=== PATIENT | male | born 1955 | race Caucasian/White ===

== ENCOUNTER → 2018-03-06 | Outpatient (CLI) | payer OTHER ==
[2018-02-13 15:26] VITALS: BP 163/86
[~2018-03-06] MED LIST: ALPR0.5T6 PO; AMLO5TAB2 PO; AMOX1TAB61 PO; ASPI-612 PO; ATEN50TA PO; ATOR10TA60 PO; ERGO500027 PO; GADOBUTROL 10 MMOL/10 ML VIAL IV ONE; GLIM4TAB2 PO; IPRA3AMP29 NEB; LISI-130 PO; METF10003 PO; OMEP20TA8 PO
--- NOTE | 2018-03-06 09:12 | RAD ---
EXAM: PA and lateral views of the chest DATE: 03/06/2018 7:53 AM INDICATION: PLEURAL EFFUSION COMPARISON: 02/13/2018 FINDINGS: Cardiomediastinal silhouette is stable. Left pleural effusion is essentially stable in size with associated parenchymal opacities, possibly atelectasis, also stable. No right pleural effusion. No pneumothorax. IMPRESSION: Stable left pleural effusion and associated opacities. Electronically signed by: Karan Veronica MD (03/06/2018 9:08 AM) [facility]
--- NOTE | 2018-03-06 09:45 | RAD ---
MRI of the Brain without and with Contrast 03/06/2018 Clinical History: Partial complex seizures. Technique: Unenhanced T1-weighted sagittal and axial and FLAIR, T2-weighted, gradient echo and diffusion-weighted axial images of the brain were obtained. Additionally thin section FLAIR coronal images through the temporal lobes were obtained. After the intravenous administration of 10 cc of Gadavist, enhanced T1-weighted axial and coronal images of the brain were obtained. Findings: No previous studies are available for comparison. Some of the images are degraded by patient motion. There is generalized parenchymal atrophy. Patchy, confluent and multiple focal areas of abnormally increased signal intensity are seen within the periventricular and subcortical white matter of both cerebral hemispheres along with the abhi on the FLAIR and T2-weighted images consistent with areas of fairly extensive small vessel ischemic disease. An old area of lacunar infarction is seen involving left aspect of the abhi. This measures 3 mm in size. A 2 mm old area of lacunar infarction is seen involving the right thalamus. No acute parenchymal abnormality is seen. No abnormal area of contrast enhancement is noted. No extra-axial fluid collection is seen. There is no MRI evidence of acute ischemia/infarction. Images through the temporal lobes are within normal limits. Mild mucosal thickening is seen scattered throughout the paranasal sinuses. There are small to moderate-sized bilateral mastoid effusions, left greater than right. Normal flow voids are seen within the major vascular structures surrounding the brain parenchyma. Impression: No acute parenchymal abnormality is seen. Electronically signed by: Alexis Redmond MD (03/06/2018 9:41 AM) [id number]
--- NOTE | 2018-03-06 16:53 | EEG ---
DATE OF SERVICE: 03/06/2018 ELECTROENCEPHALOGRAM NUMBER: [id number] OBJECTIVE: This is a 62-year-old male patient who stated he had a history of partial seizures. EEG was requested to evaluate seizure activity. METHODS: Twenty electrodes were applied according to the international 10-20 electrode placement system. EKG monitoring, hyperventilation, intermittent photic stimulation, monopolar and bipolar montages are routinely utilized. The record was obtained on a digital system with video monitoring. FINDINGS: 1. Background: The patient was recorded in the awake, drowsy, and sleep states. The overall background amplitude is 10-25 microvolts. A posterior dominant rhythm of 8 Hz is observed. 2. Abnormalities: No specific epileptiform discharge or electrographic seizure is seen. No focal or diffuse slowing. 3. Activation: Hyperventilation was performed with good efforts and normal response. Intermittent photic stimulation was performed with photic driving. No specific epileptiform discharge or electrographic seizure induced by hyperventilation or intermittent photic stimulation. IMPRESSION: This electroencephalogram is a normal study for the awake, drowsy, and sleep states. No focal, lateralizing, specific epileptiform discharge or electrographic seizure is seen. HENRIK AMADOR MD DR: KENDALL/[place] JOB#: [id number] / [id number] NEVIN
== END | disposition home or self-care (01) ==
LOC: RT 06:09
PROVIDERS: ATTEND Psychiatry & Neurology Neurology
DX: J90 Pleural effusion, not elsewhere classified (principal); G40.209 Localization-related (focal) (partial) symptomatic epilepsy and epileptic syndromes with complex partial seizures, not intractable, without status epilepticus; M17.0 Bilateral primary osteoarthritis of knee; I10 Essential (primary) hypertension; E11.42 Type 2 diabetes mellitus with diabetic polyneuropathy; E78.5 Hyperlipidemia, unspecified; E78.00 Pure hypercholesterolemia, unspecified; I25.10 Atherosclerotic heart disease of native coronary artery without angina pectoris; J44.0 Chronic obstructive pulmonary disease with (acute) lower respiratory infection; Z87.891 Personal history of nicotine dependence; Z68.31 Body mass index [BMI] 31.0-31.9, adult; Z82.49 Family history of ischemic heart disease and other diseases of the circulatory system; Z80.42 Family history of malignant neoplasm of prostate; Z83.3 Family history of diabetes mellitus
CPT/HCPCS: 70553; 71046; 95816; A9585

== ENCOUNTER → 2018-04-19 | Outpatient (CLI) | payer OTHER ==
[2018-02-13 15:26] VITALS: BP 163/86
[~2018-04-19] MED LIST changes: -AMLO5TAB2 PO; +AMLO5TAB7 PO; -GADOBUTROL 10 MMOL/10 ML VIAL IV ONE; -METF10003 PO; +METF10007 PO
--- NOTE | 2018-04-19 16:53 | RAD ---
Examination: CT chest without contrast HISTORY: History of shortness of breath, tobacco screening COMPARISON: None available TECHNIQUE: Axial CT images of the chest were performed without contrast. Coronal and sagittal reformats are performed. Exposure: One or more of the following individualized dose reduction techniques were utilized for this examination: 1. Automated exposure control 2. Adjustment of the mA and/or kV according to patient size 3. Use of iterative reconstruction technique Findings: The central airways are patent. Mild cardiomegaly. There is circumferential nodular appearance of the left pleura encasing the left lung with a density measuring 40 Hounsfield units could be nodular soft tissue densities on the pleura. Left lung base consolidation changes likely pneumonia or atelectasis. Evaluation of the mediastinum is limited due to lack of IV contrast. The visualized noncontrasted liver, spleen, adrenals grossly appears unremarkable. Partially visualized minimal fat stranding identified about the bilateral kidneys. Moderate degenerative changes thoracic spine. IMPRESSION: 1. Circumferential nodular thickening of the left pleura throughout. Mesothelioma is a primary concern. Examination limited lack of IV contrast. PET/CT scan may be useful. 2. Left lung base consolidation changes likely pneumonia or atelectasis. Follow-up to resolution. 3. Partially visualized minimal fat stranding identified about the bilateral kidneys, nonspecific. Electronically signed by: Janes Melendrez MD (04/19/2018 4:49 PM) [id number]
== END | disposition home or self-care (01) ==
LOC: CT 15:34
PROVIDERS: ATTEND Internal Medicine Pulmonary Disease
DX: Z13.83 Encounter for screening for respiratory disorder NEC (principal); I10 Essential (primary) hypertension; E11.9 Type 2 diabetes mellitus without complications; E78.5 Hyperlipidemia, unspecified; E78.00 Pure hypercholesterolemia, unspecified; I25.10 Atherosclerotic heart disease of native coronary artery without angina pectoris; M17.0 Bilateral primary osteoarthritis of knee; Z87.891 Personal history of nicotine dependence; Z88.5 Allergy status to narcotic agent; Z82.49 Family history of ischemic heart disease and other diseases of the circulatory system; Z80.42 Family history of malignant neoplasm of prostate; Z83.3 Family history of diabetes mellitus
CPT/HCPCS: 71250

== ENCOUNTER → 2018-07-18 | Outpatient (CLI) | payer OTHER ==
[2018-06-06 14:57] VITALS: BP 141/68
[~2018-07-18] MED LIST changes: +OXYC1TAB19 PO; +OXYC1TAB7 PO
--- NOTE | 2018-07-18 11:18 | RAD ---
FDG tumor localization scan, PET/CT, 07/18/2018: History: Follow-up lung malignancy Following IV injection of 14.7 mCi of 18 F-FDG, imaging was performed from the skull base to the proximal thighs. The noncontrast CT component was performed for attenuation correction and anatomic localization purposes rather than for primary diagnosis. The patient's blood glucose level the time of injection was 174 MG/DL. Comparison is made to a study from 05/16/2018. Extensive lobulated pleural thickening in the left chest has improved. Narrowing of the central bronchi at the left hilum has also improved. There is abnormal nodular FDG uptake within the areas of pleural thickening. The degree of FDG uptake has decreased since the previous study. The maximum SUV in these regions is approximately 10 compared to values of approximately 15 on the previous study. Subcarinal adenopathy has also regressed demonstrating decrease in size and the degree of FDG uptake since the previous study. On the previous study this node measured 3 cm in AP diameter with a maximum SUV of 19. It currently measures 2 cm in AP diameter with a maximum SUV of 5.1. A mildly enlarged hypermetabolic right paratracheal lymph node is new as is a small focus of increased activity in the right internal mammary region. A small hypermetabolic left subpectoral nodule is unchanged. Upper abdominal retroperitoneal and retrocrural hypermetabolic adenopathy has predominantly improved. The left para-aortic node at the renal level seen on the previous study has decreased in size and is no longer hypermetabolic. There is a small unchanged hypermetabolic nodule along the superior aspect of the celiac axis. No new hypermetabolic abdominal or pelvic lesion is seen. There is a small hypermetabolic focus present along the upper scrotal wall on the left of uncertain significance. Clinical correlation is suggested. IMPRESSION: Predominantly favorable response to therapy with decrease in size and degree of FDG uptake of multiple lesions as described above. The left subpectoral and one upper abdominal retroperitoneal lesion are essentially unchanged, while new small right paratracheal and internal mammary lesions are noted.
== END | disposition home or self-care (01) ==
LOC: PETSC 07:39
PROVIDERS: ATTEND Internal Medicine Hematology & Oncology
DX: C34.82 Malignant neoplasm of overlapping sites of left bronchus and lung (principal); R53.83 Other fatigue; F12.90 Cannabis use, unspecified, uncomplicated; Z87.891 Personal history of nicotine dependence
CPT/HCPCS: 78815; A9552

== ENCOUNTER → 2018-09-05 | Outpatient (CLI) | payer OTHER ==
[2018-06-06 14:57] VITALS: BP 141/68
[~2018-09-05] MED LIST changes: +AMLO5TAB10 PO; -AMLO5TAB7 PO
--- NOTE | 2018-09-05 13:21 | RAD ---
FDG tumor localization scan, PET/CT, 09/05/2018: History: Lung cancer Following IV injection of 11.5 mCi of 18 F-FDG, imaging was performed from the skull base to the proximal thighs. The noncontrast CT component was performed for attenuation correction and anatomic localization purposes rather than for primary diagnosis. The patient's blood glucose level at time injection was 176 M.D./DL. Comparison is made to a study from 07/18/2018. Pleural thickening throughout the left chest has worsened considerably with increasingly poor aeration of the underlying left lung. The maximum SUV of these pleural densities is in the 12-14 range. Hypermetabolic mediastinal lymph nodes have increased in size and number. These include a 2.8 cm right paratracheal lymph node which demonstrates a maximum SUV of 10. Hypermetabolic subcarinal adenopathy has worsened. There is now hypermetabolic left supraclavicular adenopathy. The left subpectoral adenopathy has worsened. Small hypermetabolic nodes are present in the epicardial fat adjacent to the diaphragm. Normal GI tract and urinary tract activity is present in the abdomen and pelvis. Hypermetabolic para-aortic and pericaval adenopathy is present in the upper abdomen with considerable interval worsening. This includes a 3 cm cluster of hypermetabolic left para-aortic nodes demonstrate a maximum SUV of 10. The left adrenal gland is probably involved. Several new hypermetabolic foci are noted at the splenic hilar level. Two small hypermetabolic foci have developed anteriorly in the left lobe of the liver. The noncontrast CT component does not demonstrate an obvious underlying mass. IMPRESSION: 1. Worsening extensive hypermetabolic pleural thickening in the left chest. 2. Worsening mediastinal and upper abdominal hypermetabolic adenopathy as described above. 3. New mild left supraclavicular adenopathy 4. Possible small hepatic metastases.
== END | disposition home or self-care (01) ==
LOC: PETSC 10:12
PROVIDERS: ATTEND Internal Medicine Hematology & Oncology
DX: C34.82 Malignant neoplasm of overlapping sites of left bronchus and lung (principal); J92.9 Pleural plaque without asbestos; R59.0 Localized enlarged lymph nodes
CPT/HCPCS: 78815; A9552

== ENCOUNTER → 2018-10-04 | Outpatient (CLI) | payer OTHER ==
[2018-06-06 14:57] VITALS: BP 141/68
[~2018-10-04] MED LIST changes: +ASPI-630 PO; +FLUT9.9S NS; +FOLI1TAB16 PO; +LEVO750T31 PO; +OXYC1TAB22 PO; +VALA500T PO
--- NOTE | 2018-10-04 09:03 | RAD ---
Left lower extremity venous doppler ultrasound Indication:LT LEG SWELLING Technique: Color Doppler, grayscale, and spectral waveform analysis is used to evaluate the left femoral and popliteal veins. Findings: No evidence of deep venous thrombosis. Normal response to augmentation, normal compressibility and normal phasicity is demonstrated. Visualized calf veins are patent. Impression: Negative for deep venous thrombosis Electronically signed by: Louis Obrien MD (10/04/2018 9:00 AM) [facility]
== END | disposition home or self-care (01) ==
LOC: US 08:31
PROVIDERS: ATTEND Internal Medicine Hematology & Oncology
DX: M79.89 Other specified soft tissue disorders (principal)
CPT/HCPCS: 93971

== ENCOUNTER 2018-10-13 00:31 | Inpatient (IN) | payer OTHER ==
[~2018-10-13] VITALS: Ht 182.9 cm; Wt 99.5 kg
[~2018-10-13 00:31] MED LIST changes: -ASPI-630 PO; -FLUT9.9S NS; -FOLI1TAB16 PO; -LEVO750T31 PO; -OXYC1TAB22 PO; -VALA500T PO
[2018-10-13] MEDS ORDERED: IV NORMAL SALINE 1000ML BAG 1,000 ML IV ONE (01:30)
[2018-10-13] MEDS ORDERED: ACETAMINOPHEN 325 MG TABLET. PO ONE (01:30)
[2018-10-13 01:56] LABS: BASO # 0.1 x10^3/uL (0.0-0.2); BASO % 2 % (0-3); EOS # 0.3 x10^3/uL (0.0-0.7); EOS % 10 % (0-3); HEMATOCRIT 23.7 % (39.0-53.0); HEMOGLOBIN 7.7 g/dL (13.0-17.5); LYMPH # 1.2 x10^3/uL (1.0-4.8); LYMPH % 36 % (24-48); MEAN CORPUSCULAR HEMOGLOBIN 29 pg (25-35); MEAN CORPUSCULAR HGB CONC 32 g/dL (31-37); MEAN CORPUSCULAR VOLUME 89 fL (79-100); MONO # 0.8 x10^3/uL (0.0-1.1); MONO % 23 % (0-9); NEUT % 30 % (31-73); PLATELET COUNT 328 x10^3/uL (140-400); RED BLOOD COUNT 2.68 x10^6/uL (4.30-5.70); RED CELL DISTRIBUTION WIDTH 20.4 % (11.5-14.5); WHITE BLOOD COUNT 3.4 x10^3/uL (4.0-11.0)
[2018-10-13 01:58] LABS: PROTHROMBIN TIME PATIENT 13.7 SEC (11.7-14.0)
[2018-10-13] MEDS ORDERED: levOFLOXacin PER PHARMACY. MC PRN (02:00)
[2018-10-13 02:09] LABS: CALCIUM 8.9 mg/dL (8.5-10.1); CREATININE 0.9 mg/dL (0.7-1.3); GFR 85.2; POTASSIUM 4.9 mmol/L (3.5-5.1)
[2018-10-13 02:15] LABS: ALBUMIN 2.3 g/dL (3.4-5.0); ALBUMIN/GLOBULIN RATIO 0.5 (1.0-1.7); TOTAL BILIRUBIN 0.5 mg/dL (0.2-1.0); TOTAL PROTEIN 7.2 g/dL (6.4-8.2)
[2018-10-13 02:23] LABS: INFLUENZA A PATIENT NEGATIVE (NEGATIVE); INFLUENZA B PATIENT NEGATIVE (NEGATIVE)
--- NOTE | 2018-10-13 02:36 | RAD ---
AP portable chest radiograph 10/13/2018 Clinical History: Shortness of breath. Lung cancer. An AP erect portable digital radiograph of the chest was obtained. Comparison study is dated 06/06/2018. The cardiac silhouette is mildly enlarged. The thoracic aorta is mildly tortuous. Extensive left perihilar infiltrate is seen. There has been improved aeration of the left lung when compared to the previous examination. There is a small left pleural effusion. The right lung is clear. No pneumothorax is noted. Degenerative changes are seen involving the thoracic spine and both shoulders. Impression: Left perihilar infiltrate with small left pleural effusion. Electronically signed by: Alexis Redmond MD (10/13/2018 2:33 AM) [facility]
[2018-10-13] MEDS ORDERED: VANCOMYCIN 2 GM in IV NORMAL SALINE 500ML BAG 500 ML IV ONE (02:45)
[2018-10-13] MEDS ORDERED: PIP/TAZO PER PHARMACY MC PRN (03:30)
[2018-10-13] MEDS ORDERED: ACETAMINOPHEN 325 MG TABLET. PO PRN (04:00)
[2018-10-13] MEDS ORDERED: PIPERACILLIN/TAZOBACTAM 3.375 GM in IV NORMAL SALINE 50ML 50 ML IV ONE (04:00)
[2018-10-13] MEDS ORDERED: MORPHINE SULFATE 4 MG/ML VIAL. IV PRN (04:00)
--- NOTE | 2018-10-13 04:13 | PHYS DOC ---
Past Medical History Past Medical History: Cancer, Diabetes-Type II, Hypertension, Seizure Past Surgical History: Other Additional Past Surgical Histo: abscess I&D, wrist fusion,Fluid removed from lung 01/2018,Feb.had lung bx. Alcohol Use: Rarely Drug Use: Marijuana Adult General Chief Complaint Chief Complaint: SHORTNESS OF BREATH HPI HPI Patient is a 63 year old m who is presenting with chief complaint of cough and fever patient has been coughing up yellow stuff for the last few days fever to 101 over the last 2 days as well has been trying to get him to come in but he was refusing any finally has come in [facility]. Patient is denying any chest pain he does feel a little bit weaker than normal he does take chemotherapy last chemotherapy was October 04. Positive nausea and intermittent vomiting no abdominal pain he says he actually thinks is feeling okay at the moment Review of Systems Review of Systems Constitutional: Denies fever or chills [] Eyes: Denies change in visual acuity, redness, or eye pain [] HENT: Denies nasal congestion or sore throat [] Respiratory: Denies cough or shortness of breath [] Cardiovascular: No additional information not addressed in HPI [] GI: Denies abdominal pain, nausea, vomiting, bloody stools or diarrhea [] : Denies dysuria or hematuria [] Musculoskeletal: Denies back pain or joint pain [] Integument: Denies rash or skin lesions [] Neurologic: Denies headache, focal weakness or sensory changes [] Endocrine: Denies polyuria or polydipsia [] All other systems were reviewed and found to be within normal limits, except as documented in this note. Current Medications Current Medications Current Medications Medications (Trade) Dose Ordered Sig/Katherine Start Time Stop Time Status Last Admin Dose Admin Acetaminophen (Tylenol) 650 mg 1X ONCE 10/13/18 01:30 10/13/18 01:31 DC 10/13/18 01:57 650 MG Levofloxacin/ Dextrose 150 ml @ 100 mls/hr 1X ONCE 10/13/18 02:00 10/13/18 03:29 DC 10/13/18 02:56 100 MLS/HR Levofloxacin/ Dextrose (Levaquin Per Pharmacy) 1 each PRN DAILY PRN 10/13/18 02:00 UNV Piperacillin Sod/ Tazobactam Sod (Zosyn Per Pharmacy) 1 each PRN DAILY PRN 10/13/18 03:30 Sodium Chloride 1,000 ml @ 1,000 mls/hr 1X ONCE 10/13/18 01:30 10/13/18 02:29 DC 10/13/18 01:58 1,000 MLS/HR Vancomycin HCl (Vanco Per Pharmacy) 1 each PRN DAILY PRN 10/13/18 02:30 UNV Vancomycin HCl 2 gm/Sodium Chloride 500 ml @ 250 mls/hr 1X ONCE 10/13/18 02:45 10/13/18 04:44 DC Allergies Allergies Allergies Coded Allergies Type Severity Reaction Last Updated Verified codeine Allergy Severe makes face swell 05/01/18 Yes Physical Exam Physical Exam Constitutional: Well developed, well nourished, mildly ill-appearing HENT: Normocephalic, atraumatic, bilateral external ears normal, oropharynx moist, no oral exudates, nose normal. [] Eyes: PERRLA, I, conjunctiva normal, no discharge. [] Neck: Normal range of motion, no tenderness, supple, no stridor. [] Cardiovascular: Tachycardia to a 6 systolic murmur noted Lungs & Thorax: Rhonchi left midlung field mild tachypnea Abdomen: Bowel sounds normal, soft, no tenderness, no masses, no pulsatile masses. [] Skin: Warm, dry, no erythema, no rash. [] Back: No tenderness, no CVA tenderness. [] Extremities: No tenderness, no cyanosis, no clubbing, ROM intact, no asymmetric edema or calf tenderness Neurologic: Alert and oriented X 3, normal motor function, normal sensory function, no focal deficits noted. [] Psychologic: Affect normal, judgement normal, mood normal. [] Current Patient Data Vital Signs Vital Signs Date Time Temp Pulse Resp B/P (MAP) Pulse Ox O2 Delivery O2 Flow Rate FiO2 10/13/18 00:40 99.0 131 24 100/57 (71) 95 Nasal Cannula 2.0 99.0 hr improved 10 115 on my re-eval Lab Values Laboratory Tests Test 10/13/18 01:25 White Blood Count 3.4 x10^3/uL (4.0-11.0) L Red Blood Count 2.68 x10^6/uL (4.30-5.70) L Hemoglobin 7.7 g/dL (13.0-17.5) L Hematocrit 23.7 % (39.0-53.0) L Mean Corpuscular Volume 89 fL (79-100) Mean Corpuscular Hemoglobin 29 pg (25-35) Mean Corpuscular Hemoglobin Concent 32 g/dL (31-37) Red Cell Distribution Width 20.4 % (11.5-14.5) H Platelet Count 328 x10^3/uL (140-400) Neutrophils (%) (Auto) 30 % (31-73) L Lymphocytes (%) (Auto) 36 % (24-48) Monocytes (%) (Auto) 23 % (0-9) H Eosinophils (%) (Auto) 10 % (0-3) H Basophils (%) (Auto) 2 % (0-3) Neutrophils # (Auto) 1.0 x10^3uL (1.8-7.7) L Lymphocytes # (Auto) 1.2 x10^3/uL (1.0-4.8) Monocytes # (Auto) 0.8 x10^3/uL (0.0-1.1) Eosinophils # (Auto) 0.3 x10^3/uL (0.0-0.7) Basophils # (Auto) 0.1 x10^3/uL (0.0-0.2) Platelet Estimate Pending Prothrombin Time 13.7 SEC (11.7-14.0) Prothrombin Time INR 1.1 (0.8-1.1) Sodium Level 131 mmol/L (136-145) L Potassium Level 4.9 mmol/L (3.5-5.1) Chloride Level 97 mmol/L (98-107) L Carbon Dioxide Level 26 mmol/L (21-32) Anion Gap 8 (6-14) Blood Urea Nitrogen 15 mg/dL (8-26) Creatinine 0.9 mg/dL (0.7-1.3) Estimated GFR (Cockcroft-Gault) 85.2 BUN/Creatinine Ratio 17 (6-20) Glucose Level 139 mg/dL (70-99) H Lactic Acid Level 1.0 mmol/L (0.4-2.0) Calcium Level 8.9 mg/dL (8.5-10.1) Total Bilirubin 0.5 mg/dL (0.2-1.0) Aspartate Amino Transferase (AST) 73 U/L (15-37) H Alanine Aminotransferase (ALT) 13 U/L (16-63) L Alkaline Phosphatase 85 U/L (46-116) Troponin I Quantitative < 0.017 ng/mL (0.000-0.055) PR-Rdc-J-Type Natriuretic Peptide 766 pg/mL (0-124) H Total Protein 7.2 g/dL (6.4-8.2) Albumin 2.3 g/dL (3.4-5.0) L Albumin/Globulin Ratio 0.5 (1.0-1.7) L Influenza Type A Antigen Negative (NEGATIVE) Influenza Type B Antigen Negative (NEGATIVE) Laboratory Tests 10/13/18 01:25 Laboratory Tests 10/13/18 01:25 EKG EKG [] Interpretation Time: sinus tach rate 118 no acute ischemic changes noted. There are nonspecific changes in the high lateral leads but no STEMI seen Radiology/Procedures Radiology/Procedures [] Impressions: The cardiac silhouette is mildly enlarged. The thoracic aorta is mildly tortuous. Extensive left perihilar infiltrate is seen. There has been improved aeration of the left lung when compared to the previous examination. There is a small left pleural effusion. The right lung is clear. No pneumothorax is noted. Degenerative changes are seen involving the thoracic spine and both shoulders. Impression: Left perihilar infiltrate with small left pleural effusion. Electronically signed by: Alexis Redmond MD (10/13/2018 2:33 AM) [facility] DICTATED and SIGNED BY: ALEXIS REDMOND MD DATE: 10/13/18 0233 Course & Med Decision Making Course & Med Decision Making Pertinent Labs and Imaging studies reviewed. (See chart for details) Discussed with Dr. Felder for admission for pneumonia This is a 63-year-old male on chemotherapy for lung cancer presenting with cough and fever clinically here in the emergency room looks pretty good did have mild tachycardia he is awake and alert labs showed anemia not surprising given his chemotherapy white blood cell count 3.4 at this time anc 1000. cxr shows pna. lactic 1.0 Patient was given broad-spectrum antibiotics will be admitted for further evaluation and treatment. Flu swab Was negative Dragon Disclaimer Dragon Disclaimer This electronic medical record was generated, in whole or in part, using a voice recognition dictation system. Departure Departure Impression: Primary Impression: Pneumonia Disposition: 09 ADMITTED INPATIENT Admitting Physician: Praveen Felder Condition: STABLE Referrals: ANDERSON MANCILLA MD (PCP) NUNU ALMENDAREZ MD Oct 13, 2018 04:13
[2018-10-13] MEDS ORDERED: HYDROcodone/APAP 10/325 1 TAB TABLET PO ONE (04:30)
[2018-10-13 05:10] VITALS: BP 102/59
[2018-10-13] MEDS: IV NORMAL SALINE 1000ML BAG 1,000 ML IV SCH ×2 (05:14→17:06)
[2018-10-13] MEDS ORDERED: DEXTROSE 50% 25 GM / 50ML DISP.SYRIN. IV PRN (05:15)
[2018-10-13 05:39] LABS: % BANDS 8 % (0-9); % EOS 17 % (0-5); % LYMPHS 56 % (24-48); % MONOS 6 % (0-10); % SEGS 13 % (35-66)
[2018-10-13 05:40] LABS: PLT ESTIMATE ADEQUATE (ADEQUATE)
[2018-10-13] MEDS ORDERED: FOLI1TAB16 PO (05:42)
[2018-10-13] MEDS ORDERED: OXYC1TAB22 PO (05:42)
[2018-10-13] MEDS: VANCOMYCIN PER PHARMACY MC PRN ×2 (06:19→16:22)
[2018-10-13 07:00] VITALS: BP 105/55
[2018-10-13] MEDS ORDERED: LACTOBACILLUS RHAMNOSUS GG 1 CAPSULE. PO SCH (09:00)
[2018-10-13] MEDS: oxyCODONE/APAP 10/325 1 TAB TABLET PO PRN ×2 (10:23→20:01)
--- NOTE | 2018-10-13 10:52 | PDOC1 ---
History and Physical Date of Admission Date of Admission 10/13/18 Identification/Chief Complaint Chief Complaint fever, pain Source Source: Caregiver, Chart review, Patient History of Present Illness History of Present Illness Lung cancer pt of Dr. Swan who had chemo 10/04 and developed fever 2 days ago and came to ER overnight due to pain and fever and admitted. He also has oral ulcers and has a low WBC at 3.7 Past Medical History Cardiovascular: HTN, Hyperlipidemia Pulmonary: COPD, Other (stage 4 lung cancer) CENTRAL NERVOUS SYSTEM: Seizure Heme/Onc: Cancer Rheumatologic: Other (OA) Renal/: Chronic renal insuff Endocrine: Diabetes Past Surgical History Past Surgical History: Other Family History Family History: Cancer, Diabetes, Heart Disease, Hypertension, Kidney Disease Social History Smoke: Quit (40 pack yr history) ALCOHOL: occassional Current Problem List Problem List Problems Medical Problems: (1) Pneumonia Status: Acute Current Medications Current Medications Current Medications Medications (Trade) Dose Ordered Sig/Katherine Start Time Stop Time Status Last Admin Dose Admin Acetaminophen (Tylenol) 650 mg PRN Q4HRS PRN 10/13/18 04:00 10/14/18 03:59 Acetaminophen/ Hydrocodone Bitart (Lortab 10/325) 1 tab 1X ONCE 10/13/18 04:30 10/13/18 04:41 DC 10/13/18 04:27 1 TAB Albuterol/ Ipratropium (Duoneb) 3 ml RTQID 10/13/18 12:00 Amlodipine Besylate (Norvasc) 5 mg DAILY 10/13/18 11:00 Atenolol (Tenormin) 50 mg DAILY 10/13/18 11:00 Atorvastatin Calcium (Lipitor) 10 mg DAILY 10/13/18 11:00 Dextrose (Dextrose 50%-Water Syringe) 12.5 gm PRN Q15MIN PRN 10/13/18 05:15 Ergocalciferol (Vitamin D2) 50,000 unit WEEKLY 10/20/18 09:00 Folic Acid (Folic Acid) 1 mg DAILY 10/13/18 11:00 Lactobacillus Rhamnosus (Culturelle) 1 cap BID 10/13/18 09:00 10/13/18 09:45 1 CAP Levofloxacin/ Dextrose 150 ml @ 100 mls/hr Q24H 10/14/18 05:00 Levofloxacin/ Dextrose (Levaquin Per Pharmacy) 1 each PRN DAILY PRN 10/13/18 02:00 Lisinopril (Prinivil) 40 mg DAILY 10/13/18 11:00 Morphine Sulfate (Morphine Sulfate) 4 mg PRN Q2HR PRN 10/13/18 04:00 10/14/18 03:59 Oxycodone/ Acetaminophen (Percocet 10/325) 1 tab PRN Q6HRS PRN 10/13/18 10:15 10/13/18 10:23 1 TAB Pantoprazole Sodium (Protonix) 40 mg DAILYAC 10/14/18 07:30 Piperacillin Sod/ Tazobactam Sod (Zosyn Per Pharmacy) 1 each PRN DAILY PRN 10/13/18 03:30 Piperacillin Sod/ Tazobactam Sod 3.375 gm/Sodium Chloride 50 ml @ 100 mls/hr Q6HRS 10/13/18 12:00 Sodium Chloride 1,000 ml @ 100 mls/hr Q10H 10/13/18 04:00 10/14/18 03:59 10/13/18 05:14 100 MLS/HR Vancomycin HCl (Vanco Per Pharmacy) 1 each PRN DAILY PRN 10/13/18 05:00 10/13/18 06:19 1 EACH Vancomycin HCl (Vancomycin Trough Level) 1 each 1X ONCE 10/14/18 17:00 10/14/18 17:01 Vancomycin HCl 1.5 gm/Sodium Chloride 500 ml @ 250 mls/hr Q12H 10/13/18 17:30 Vancomycin HCl 2 gm/Sodium Chloride 500 ml @ 250 mls/hr 1X ONCE 10/13/18 02:45 10/13/18 04:44 DC 10/13/18 05:37 250 MLS/HR Allergies Allergies Allergies Coded Allergies Type Severity Reaction Last Updated Verified codeine Allergy Severe makes face swell 05/01/18 Yes ROS Review of System CONSTITUTIONAL: + fever, chills EYES: No recent changes SKIN: No rash or itching CARDIOVASCULAR: No chest pain, syncope, palpitations, or edema RESPIRATORY: lung cancer GASTROINTESTINAL: No nausea, vomiting or abdominal pain, BM about every 2 days NEUROLOGICAL: No headaches or weakness ENDOCRINE: No cold or heat intolerance GENITOURINARY: + frequency of urination MUSCULOSKELETAL: + left sided back and joint pain PSYCHIATRIC: No anxiety or depression Physical Exam Physical Exam GEN.: uncomfortable. Alert and oriented. HEENT: Head is normocephalic, atraumatic, oral ulcers present NECK: Supple. LUNGS: Clear to auscultation. HEART: RRR, S1, S2 present. Peripheral pulses intact ABDOMEN: Soft, nontender. Positive bowel sounds. EXTREMITIES: Without any cyanosis. NEUROLOGIC: Normal speech, normal tone PSYCHIATRIC: Normal affect, normal mood. SKIN: No ulcerations Vitals Vitals Vital Signs Date Time Temp Pulse Resp B/P (MAP) Pulse Ox O2 Delivery O2 Flow Rate FiO2 10/13/18 10:23 Nasal Cannula 1.5 10/13/18 07:00 98.0 103 20 105/55 (72) 95 98.0 Labs Labs Laboratory Tests Test 10/13/18 01:25 10/13/18 07:44 White Blood Count 3.4 x10^3/uL (4.0-11.0) Red Blood Count 2.68 x10^6/uL (4.30-5.70) Hemoglobin 7.7 g/dL (13.0-17.5) Hematocrit 23.7 % (39.0-53.0) Mean Corpuscular Volume 89 fL (79-100) Mean Corpuscular Hemoglobin 29 pg (25-35) Mean Corpuscular Hemoglobin Concent 32 g/dL (31-37) Red Cell Distribution Width 20.4 % (11.5-14.5) Platelet Count 328 x10^3/uL (140-400) Neutrophils (%) (Auto) 30 % (31-73) Lymphocytes (%) (Auto) 36 % (24-48) Monocytes (%) (Auto) 23 % (0-9) Eosinophils (%) (Auto) 10 % (0-3) Basophils (%) (Auto) 2 % (0-3) Neutrophils # (Auto) 1.0 x10^3uL (1.8-7.7) Lymphocytes # (Auto) 1.2 x10^3/uL (1.0-4.8) Monocytes # (Auto) 0.8 x10^3/uL (0.0-1.1) Eosinophils # (Auto) 0.3 x10^3/uL (0.0-0.7) Basophils # (Auto) 0.1 x10^3/uL (0.0-0.2) Segmented Neutrophils % 13 % (35-66) Band Neutrophils % 8 % (0-9) Lymphocytes % 56 % (24-48) Monocytes % 6 % (0-10) Eosinophils % 17 % (0-5) Platelet Estimate Adequate (ADEQUATE) Prothrombin Time 13.7 SEC (11.7-14.0) Prothromb Time International Ratio 1.1 (0.8-1.1) Sodium Level 131 mmol/L (136-145) Potassium Level 4.9 mmol/L (3.5-5.1) Chloride Level 97 mmol/L (98-107) Carbon Dioxide Level 26 mmol/L (21-32) Anion Gap 8 (6-14) Blood Urea Nitrogen 15 mg/dL (8-26) Creatinine 0.9 mg/dL (0.7-1.3) Estimated GFR (Cockcroft-Gault) 85.2 BUN/Creatinine Ratio 17 (6-20) Glucose Level 139 mg/dL (70-99) Lactic Acid Level 1.0 mmol/L (0.4-2.0) Calcium Level 8.9 mg/dL (8.5-10.1) Total Bilirubin 0.5 mg/dL (0.2-1.0) Aspartate Amino Transf (AST/SGOT) 73 U/L (15-37) Alanine Aminotransferase (ALT/SGPT) 13 U/L (16-63) Alkaline Phosphatase 85 U/L (46-116) Troponin I Quantitative < 0.017 ng/mL (0.000-0.055) WK-Mvp-P-Type Natriuretic Peptide 766 pg/mL (0-124) Total Protein 7.2 g/dL (6.4-8.2) Albumin 2.3 g/dL (3.4-5.0) Albumin/Globulin Ratio 0.5 (1.0-1.7) Influenza Type A Antigen Negative (NEGATIVE) Influenza Type B Antigen Negative (NEGATIVE) Glucose (Fingerstick) 127 mg/dL (70-99) Laboratory Tests Test 10/13/18 01:25 10/13/18 07:44 White Blood Count 3.4 x10^3/uL (4.0-11.0) Red Blood Count 2.68 x10^6/uL (4.30-5.70) Hemoglobin 7.7 g/dL (13.0-17.5) Hematocrit 23.7 % (39.0-53.0) Mean Corpuscular Volume 89 fL (79-100) Mean Corpuscular Hemoglobin 29 pg (25-35) Mean Corpuscular Hemoglobin Concent 32 g/dL (31-37) Red Cell Distribution Width 20.4 % (11.5-14.5) Platelet Count 328 x10^3/uL (140-400) Neutrophils (%) (Auto) 30 % (31-73) Lymphocytes (%) (Auto) 36 % (24-48) Monocytes (%) (Auto) 23 % (0-9) Eosinophils (%) (Auto) 10 % (0-3) Basophils (%) (Auto) 2 % (0-3) Neutrophils # (Auto) 1.0 x10^3uL (1.8-7.7) Lymphocytes # (Auto) 1.2 x10^3/uL (1.0-4.8) Monocytes # (Auto) 0.8 x10^3/uL (0.0-1.1) Eosinophils # (Auto) 0.3 x10^3/uL (0.0-0.7) Basophils # (Auto) 0.1 x10^3/uL (0.0-0.2) Segmented Neutrophils % 13 % (35-66) Band Neutrophils % 8 % (0-9) Lymphocytes % 56 % (24-48) Monocytes % 6 % (0-10) Eosinophils % 17 % (0-5) Platelet Estimate Adequate (ADEQUATE) Prothrombin Time 13.7 SEC (11.7-14.0) Prothromb Time International Ratio 1.1 (0.8-1.1) Sodium Level 131 mmol/L (136-145) Potassium Level 4.9 mmol/L (3.5-5.1) Chloride Level 97 mmol/L (98-107) Carbon Dioxide Level 26 mmol/L (21-32) Anion Gap 8 (6-14) Blood Urea Nitrogen 15 mg/dL (8-26) Creatinine 0.9 mg/dL (0.7-1.3) Estimated GFR (Cockcroft-Gault) 85.2 BUN/Creatinine Ratio 17 (6-20) Glucose Level 139 mg/dL (70-99) Lactic Acid Level 1.0 mmol/L (0.4-2.0) Calcium Level 8.9 mg/dL (8.5-10.1) Total Bilirubin 0.5 mg/dL (0.2-1.0) Aspartate Amino Transf (AST/SGOT) 73 U/L (15-37) Alanine Aminotransferase (ALT/SGPT) 13 U/L (16-63) Alkaline Phosphatase 85 U/L (46-116) Troponin I Quantitative < 0.017 ng/mL (0.000-0.055) AU-Ucq-U-Type Natriuretic Peptide 766 pg/mL (0-124) Total Protein 7.2 g/dL (6.4-8.2) Albumin 2.3 g/dL (3.4-5.0) Albumin/Globulin Ratio 0.5 (1.0-1.7) Influenza Type A Antigen Negative (NEGATIVE) Influenza Type B Antigen Negative (NEGATIVE) Glucose (Fingerstick) 127 mg/dL (70-99) Images Images AP portable chest radiograph 10/13/2018 Clinical History: Shortness of breath. Lung cancer. An AP erect portable digital radiograph of the chest was obtained. Comparison study is dated 06/06/2018. The cardiac silhouette is mildly enlarged. The thoracic aorta is mildly tortuous. Extensive left perihilar infiltrate is seen. There has been improved aeration of the left lung when compared to the previous examination. There is a small left pleural effusion. The right lung is clear. No pneumothorax is noted. Degenerative changes are seen involving the thoracic spine and both shoulders. Impression: Left perihilar infiltrate with small left pleural effusion. VTE Prophylaxis Ordered VTE Prophylaxis Devices: No VTE Pharmacological Prophylaxi: Yes Assessment/Plan Assessment/Plan pneumonia/neutropenic fever - IV antibiotics - ID consult lung cancer - last chemo 10/04 - onc consult Type 2 diabetes - home meds stage 3 CKD - IVF HTN - home meds Mayela IQBAL MD Oct 13, 2018 10:52
[2018-10-13 11:00] VITALS: BP 118/52
[2018-10-13] MEDS ORDERED: LIDO:MAALOX:BENADRYL 1:1:1 180 ML BOTTLE. PO PRN (11:00)
[2018-10-13] MEDS: IPRATRPIUM/ALBUTEROL 0.5/2.5MG 3 ML NEBU. NEB SCH ×3 (11:15→20:14)
[2018-10-13] MEDS: FOLIC ACID 1 MG TABLET. PO SCH (11:48)
[2018-10-13] MEDS: LISINOPRIL 20 MG TABLET PO SCH (11:48)
[2018-10-13] MEDS: ATORVASTATIN CALCIUM 10 MG TABLET. PO SCH (11:48)
[2018-10-13] MEDS: amLODIPine BESYLATE 5 MG TABLET PO SCH (11:49)
[2018-10-13] MEDS: ATENOLOL 50 MG TABLET. PO SCH (11:50)
[2018-10-13] MEDS ORDERED: PIPERACILLIN/TAZOBACTAM 3.375 GM in IV NORMAL SALINE 50ML 50 ML IV SCH (12:00)
--- NOTE | 2018-10-13 13:52 | PDOC ---
Infectious Disease Note Vital Sign Vital Signs Vital Signs Date Time Temp Pulse Resp B/P (MAP) Pulse Ox O2 Delivery O2 Flow Rate FiO2 10/13/18 11:50 Nasal Cannula 2.0 10/13/18 11:50 101 118/52 10/13/18 11:00 98.0 20 97 98.0 Labs Lab Laboratory Tests Test 10/13/18 01:25 10/13/18 07:44 10/13/18 10:59 White Blood Count 3.4 x10^3/uL (4.0-11.0) Red Blood Count 2.68 x10^6/uL (4.30-5.70) Hemoglobin 7.7 g/dL (13.0-17.5) Hematocrit 23.7 % (39.0-53.0) Mean Corpuscular Volume 89 fL (79-100) Mean Corpuscular Hemoglobin 29 pg (25-35) Mean Corpuscular Hemoglobin Concent 32 g/dL (31-37) Red Cell Distribution Width 20.4 % (11.5-14.5) Platelet Count 328 x10^3/uL (140-400) Neutrophils (%) (Auto) 30 % (31-73) Lymphocytes (%) (Auto) 36 % (24-48) Monocytes (%) (Auto) 23 % (0-9) Eosinophils (%) (Auto) 10 % (0-3) Basophils (%) (Auto) 2 % (0-3) Neutrophils # (Auto) 1.0 x10^3uL (1.8-7.7) Lymphocytes # (Auto) 1.2 x10^3/uL (1.0-4.8) Monocytes # (Auto) 0.8 x10^3/uL (0.0-1.1) Eosinophils # (Auto) 0.3 x10^3/uL (0.0-0.7) Basophils # (Auto) 0.1 x10^3/uL (0.0-0.2) Segmented Neutrophils % 13 % (35-66) Band Neutrophils % 8 % (0-9) Lymphocytes % 56 % (24-48) Monocytes % 6 % (0-10) Eosinophils % 17 % (0-5) Platelet Estimate Adequate (ADEQUATE) Prothrombin Time 13.7 SEC (11.7-14.0) Prothromb Time International Ratio 1.1 (0.8-1.1) Sodium Level 131 mmol/L (136-145) Potassium Level 4.9 mmol/L (3.5-5.1) Chloride Level 97 mmol/L (98-107) Carbon Dioxide Level 26 mmol/L (21-32) Anion Gap 8 (6-14) Blood Urea Nitrogen 15 mg/dL (8-26) Creatinine 0.9 mg/dL (0.7-1.3) Estimated GFR (Cockcroft-Gault) 85.2 BUN/Creatinine Ratio 17 (6-20) Glucose Level 139 mg/dL (70-99) Lactic Acid Level 1.0 mmol/L (0.4-2.0) Calcium Level 8.9 mg/dL (8.5-10.1) Total Bilirubin 0.5 mg/dL (0.2-1.0) Aspartate Amino Transf (AST/SGOT) 73 U/L (15-37) Alanine Aminotransferase (ALT/SGPT) 13 U/L (16-63) Alkaline Phosphatase 85 U/L (46-116) Troponin I Quantitative < 0.017 ng/mL (0.000-0.055) KE-Ras-G-Type Natriuretic Peptide 766 pg/mL (0-124) Total Protein 7.2 g/dL (6.4-8.2) Albumin 2.3 g/dL (3.4-5.0) Albumin/Globulin Ratio 0.5 (1.0-1.7) Influenza Type A Antigen Negative (NEGATIVE) Influenza Type B Antigen Negative (NEGATIVE) Glucose (Fingerstick) 127 mg/dL (70-99) 113 mg/dL (70-99) Objective Assessment HCAP Immunosuppression Oral ulcers Stage IV nonsmall cell lung cancer -palliative chemo, last dose around 10/04. DM HTN Plan Plan of Care vanc, Zosyn, Levaquin Probiotics add Valtrex Monitor labs f/u cultures Supportive care Thank you [id number] LEE APONTE APRN Oct 13, 2018 13:52 DEVON MOON MD Oct 13, 2018 15:46
--- NOTE | 2018-10-13 14:22 | CONS ---
DATE OF CONSULTATION: 10/13/2018 REFERRING PHYSICIAN: Dr. Felder. REASON FOR CONSULTATION: Pneumonia. HISTORY OF PRESENT ILLNESS: This patient is a 63-year-old male with stage 4 non-small cell lung cancer, undergoing palliative chemotherapy. He is followed by Dr. Swan and his last treatment was around 10/04/2018. About 2 days or so ago, he developed cough, increased shortness of air and chills. He normally has the fan directly blowing on him to help breathe and thought maybe he overdid it and caught himself a cold. He also has home oxygen as needed and was having to use it more. On admission, he was found to have a WBC count 3.4, segs 13%, bands 8%. A chest x-ray revealed a left perihilar infiltrate with small left pleural effusion. Blood cultures have been ordered. He was dosed with vancomycin, Zosyn and levofloxacin. ID has been asked to consult for further evaluation and antibiotic management. The patient says he is feeling a little bit better. He says he did not feel well and thought he had a fever. He denies headache, nasal or sinus congestion. He complains of difficulty chewing and sores in his mouth. He also finds himself having to clear his throat with swallowing. Denies chest pain. His appetite is a little bit diminished. He has been having occasional small bouts of diarrhea. He denies nausea, vomiting, cramps or bloating. PAST MEDICAL HISTORY: Stage 4 non-small cell lung cancer diagnosed in 04/2018 and is undergoing palliative chemotherapy. History of seizures. Hypertension, diabetes, hyperlipidemia, obesity, generalized anxiety disorder, osteoarthritis of knees, peripheral neuropathy. PAST SURGICAL HISTORY: Left open biopsy of pleura in 04/2018. Cardiac catheterization. Left wrist surgery. FAMILY HISTORY: Positive for hypertension, diabetes, colon cancer, heart disease, COPD and kidney disease. SOCIAL HISTORY: The patient is and lives at home. He has a 30-year pack history of smoking. Also, history of alcohol dependence in the past. 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 ALLERGIES: CODEINE. MEDICATIONS: Vancomycin, Zosyn, levofloxacin, probiotics. Other medications are available and have been reviewed on the MAR. REVIEW OF SYSTEMS: Per HPI, otherwise all other review of systems is negative. PHYSICAL EXAMINATION: VITAL SIGNS: Temperature is 98.0, blood pressure 118/52, heart rate 101, respiratory rate 20, pulse oximetry is 97% on 2 liters oxygen. GENERAL: The patient is propped up in bed, alert, in no apparent distress. HEENT: Pupils equally round, reactive. Normal conjunctivae. Oral cavity: Pharynx pink and moist, edentulous, a small ulceration left lower gum line. NECK: Supple. LUNGS: Diminished aeration. Nonlabored. HEART: S1, S2. ABDOMEN: Obese, soft and nontender with bowel sounds present. EXTREMITIES: No gross edema or cyanosis. SKIN: Warm without generalized rash. NEUROLOGIC: Alert and oriented x 3. Peripheral IV looks okay. LABORATORY DATA: Today's WBC 3.4, hemoglobin 7.7, platelets 328,000, segs 13%, bands 8%. Sodium 131, potassium 4.9, creatinine 0.9, BUN 15, AST 73, ALT 13. Lactic acid 1.0. Troponin less than 0.017. BNP 766, albumin 2.3. Influenza screen negative. Blood cultures pending. Chest x-ray per HPI. IMPRESSION: 1. Healthcare-acquired pneumonia. 2. Immunosuppression. 3. Oral ulcers. 4. Stage 4 non-small cell lung cancer, undergoing palliative chemotherapy. 5. Diabetes mellitus. 6. Hypertension. PLAN: Continue the vancomycin, Zosyn and levofloxacin along with the probiotics. We will add Valtrex as well. Continue to monitor laboratory values and temperature. Further antibiotic changes pending culture results and clinical response. Thank you, Dr. Felder, for asking us to participate in this patient's care. Should you have further questions or concerns, please call. DEVON MOON MD DR: JULIÁN/[place] JOB#: [id number] / [id number]
[2018-10-13 15:00] VITALS: BP 99/56
[2018-10-13] MEDS: VANCOMYCIN 1.25 GM in IV NORMAL SALINE 250ML 250 ML IV SCH (17:07)
[2018-10-13] MEDS ORDERED: VANCOMYCIN 1.5 GM in IV NORMAL SALINE 500ML BAG 500 ML IV SCH (17:30)
[2018-10-13 19:00] VITALS: BP 107/45
[2018-10-13] MEDS: PIPERACILLIN/TAZOBACTAM 4.5 GM in IV NORMAL SALINE 100ML 100 ML IV SCH ×2 (20:01→23:00)
[2018-10-13] MEDS: valACYclovir 500 MG TABLET. PO SCH (20:02)
[2018-10-13 23:01] VITALS: BP 117/60
[2018-10-14] VITALS (11 sets, daily range): BP systolic 97–128; BP diastolic 46–59
[2018-10-14] MEDS: VANCOMYCIN 1.25 GM in IV NORMAL SALINE 250ML 250 ML IV SCH ×2 (01:36→08:52)
[2018-10-14] MEDS: IV NORMAL SALINE 1000ML BAG 1,000 ML IV SCH (02:50)
[2018-10-14 04:00] LABS: BASO # 0.1 x10^3/uL (0.0-0.2); BASO % 2 % (0-3); EOS # 0.4 x10^3/uL (0.0-0.7); EOS % 12 % (0-3); HEMATOCRIT 21.8 % (39.0-53.0); LYMPH % 32 % (24-48); MEAN CORPUSCULAR HEMOGLOBIN 28 pg (25-35); MEAN CORPUSCULAR HGB CONC 31 g/dL (31-37); MEAN CORPUSCULAR VOLUME 90 fL (79-100); MONO # 0.8 x10^3/uL (0.0-1.1); MONO % 26 % (0-9); NEUT # 0.9 x10^3uL (1.8-7.7); NEUT % 29 % (31-73); PLATELET COUNT 305 x10^3/uL (140-400); RED BLOOD COUNT 2.43 x10^6/uL (4.30-5.70); RED CELL DISTRIBUTION WIDTH 20.5 % (11.5-14.5); WHITE BLOOD COUNT 3.2 x10^3/uL (4.0-11.0)
[2018-10-14 04:20] LABS: CALCIUM 8.4 mg/dL (8.5-10.1); CREATININE 0.9 mg/dL (0.7-1.3); GFR 85.2
[2018-10-14 04:53] LABS: HEMOGLOBIN 6.8 g/dL (13.0-17.5)
[2018-10-14] MEDS: PIPERACILLIN/TAZOBACTAM 4.5 GM in IV NORMAL SALINE 100ML 100 ML IV SCH ×3 (05:02→21:28)
[2018-10-14] MEDS: IPRATRPIUM/ALBUTEROL 0.5/2.5MG 3 ML NEBU. NEB SCH ×4 (07:30→21:13)
[2018-10-14] MEDS: ATORVASTATIN CALCIUM 10 MG TABLET. PO SCH (08:47)
[2018-10-14] MEDS: PANTOPRAZOLE 40 MG TABLET.DR. PO SCH (08:47)
[2018-10-14] MEDS: amLODIPine BESYLATE 5 MG TABLET PO SCH (08:48)
[2018-10-14] MEDS: FOLIC ACID 1 MG TABLET. PO SCH (08:48)
[2018-10-14] MEDS: LISINOPRIL 20 MG TABLET PO SCH (08:49)
[2018-10-14] MEDS: ATENOLOL 50 MG TABLET. PO SCH (08:51)
[2018-10-14] MEDS: valACYclovir 500 MG TABLET. PO SCH ×2 (08:51→20:08)
--- NOTE | 2018-10-14 09:00 | EKG ---
[facility] [address] [place] [id number] Test Date: 2018-10-13 Test Time: 03:06:26 Pat Name: ANDERSON REYES Department: Room: 536 1 Gender: M [employer]: : 1955 Requested By: NUNU ALMENDAREZ Order Number: [id number] Reading MD: Randy Teresa MD Measurements Intervals [place] Rate: 118 P: 31 IN: 170 QRS: 10 QRSD: 78 T: 98 QT: 296 QTc: 417 Interpretive Statements SINUS TACHYCARDIA NON-SPECIFIC ST/T CHANGES Electronically Signed On 10-14-2018 10:53:27 CDT by Randy Teresa MD
--- NOTE | 2018-10-14 09:53 | PDOC ---
PROGRESS NOTES Subjective Subjective Patient feeling better. Case discussed with Dr. Swan. Hemoglobin down to less than 7. Transfusion ordered. Patient on triple antibiotic therapy for healthcare acquired pneumonia. Patient also on antiviral therapy. Patient having some diarrhea. C. difficile ordered. Objective Objective Vital Signs Date Time Temp Pulse Resp B/P (MAP) Pulse Ox O2 Delivery O2 Flow Rate FiO2 10/14/18 08:51 104 116/54 10/14/18 07:30 96 Nasal Cannula 2.0 10/14/18 07:00 97.9 18 97.9 Intake and Output 10/14/18 07:00 Intake Total 3390 ml Output Total 900 ml Balance 2490 ml Intake Oral 990 ml IV Total 2400 ml Output Urine Total 900 ml # Voids 2 # Bowel Movements 1 Physical Exam Heart: Regular rate Extremities: No edema General: Alert Lungs: Other (pain to palpation of left flank some decreased breath sounds and crackles left lower lobe.) Assessment Assessment Problems Medical Problems: (1) Pneumonia Status: Acute Healthcare acquired pneumonia. Lung cancer on chemotherapy. Last treatment 10/04 Neutropenia Anemia Type 2 diabetes Hypertension Heart acute disease stage III Plan Plan of Care Proceed with transfusion. Port-A-Cath recommended due to failure to get Port-A-Cath as outpatient. Continue IV antibiotics and antiviral therapy. Monitor for C. difficile. Comment Review of Relevant I have reviewed the following items vanessa (where applicable) has been applied. Labs Laboratory Tests Test 10/13/18 01:25 10/13/18 07:44 10/13/18 10:59 10/13/18 16:36 White Blood Count 3.4 x10^3/uL (4.0-11.0) Red Blood Count 2.68 x10^6/uL (4.30-5.70) Hemoglobin 7.7 g/dL (13.0-17.5) Hematocrit 23.7 % (39.0-53.0) Mean Corpuscular Volume 89 fL (79-100) Mean Corpuscular Hemoglobin 29 pg (25-35) Mean Corpuscular Hemoglobin Concent 32 g/dL (31-37) Red Cell Distribution Width 20.4 % (11.5-14.5) Platelet Count 328 x10^3/uL (140-400) Neutrophils (%) (Auto) 30 % (31-73) Lymphocytes (%) (Auto) 36 % (24-48) Monocytes (%) (Auto) 23 % (0-9) Eosinophils (%) (Auto) 10 % (0-3) Basophils (%) (Auto) 2 % (0-3) Neutrophils # (Auto) 1.0 x10^3uL (1.8-7.7) Lymphocytes # (Auto) 1.2 x10^3/uL (1.0-4.8) Monocytes # (Auto) 0.8 x10^3/uL (0.0-1.1) Eosinophils # (Auto) 0.3 x10^3/uL (0.0-0.7) Basophils # (Auto) 0.1 x10^3/uL (0.0-0.2) Segmented Neutrophils % 13 % (35-66) Band Neutrophils % 8 % (0-9) Lymphocytes % 56 % (24-48) Monocytes % 6 % (0-10) Eosinophils % 17 % (0-5) Platelet Estimate Adequate (ADEQUATE) Prothrombin Time 13.7 SEC (11.7-14.0) Prothromb Time International Ratio 1.1 (0.8-1.1) Sodium Level 131 mmol/L (136-145) Potassium Level 4.9 mmol/L (3.5-5.1) Chloride Level 97 mmol/L (98-107) Carbon Dioxide Level 26 mmol/L (21-32) Anion Gap 8 (6-14) Blood Urea Nitrogen 15 mg/dL (8-26) Creatinine 0.9 mg/dL (0.7-1.3) Estimated GFR (Cockcroft-Gault) 85.2 BUN/Creatinine Ratio 17 (6-20) Glucose Level 139 mg/dL (70-99) Lactic Acid Level 1.0 mmol/L (0.4-2.0) Calcium Level 8.9 mg/dL (8.5-10.1) Total Bilirubin 0.5 mg/dL (0.2-1.0) Aspartate Amino Transf (AST/SGOT) 73 U/L (15-37) Alanine Aminotransferase (ALT/SGPT) 13 U/L (16-63) Alkaline Phosphatase 85 U/L (46-116) Troponin I Quantitative < 0.017 ng/mL (0.000-0.055) VF-Ril-U-Type Natriuretic Peptide 766 pg/mL (0-124) Total Protein 7.2 g/dL (6.4-8.2) Albumin 2.3 g/dL (3.4-5.0) Albumin/Globulin Ratio 0.5 (1.0-1.7) Influenza Type A Antigen Negative (NEGATIVE) Influenza Type B Antigen Negative (NEGATIVE) Glucose (Fingerstick) 127 mg/dL (70-99) 113 mg/dL (70-99) 156 mg/dL (70-99) Test 10/13/18 19:59 10/14/18 02:55 10/14/18 07:21 Glucose (Fingerstick) 120 mg/dL (70-99) 101 mg/dL (70-99) White Blood Count 3.2 x10^3/uL (4.0-11.0) Red Blood Count 2.43 x10^6/uL (4.30-5.70) Hemoglobin 6.8 g/dL (13.0-17.5) Hematocrit 21.8 % (39.0-53.0) Mean Corpuscular Volume 90 fL (79-100) Mean Corpuscular Hemoglobin 28 pg (25-35) Mean Corpuscular Hemoglobin Concent 31 g/dL (31-37) Red Cell Distribution Width 20.5 % (11.5-14.5) Platelet Count 305 x10^3/uL (140-400) Neutrophils (%) (Auto) 29 % (31-73) Lymphocytes (%) (Auto) 32 % (24-48) Monocytes (%) (Auto) 26 % (0-9) Eosinophils (%) (Auto) 12 % (0-3) Basophils (%) (Auto) 2 % (0-3) Neutrophils # (Auto) 0.9 x10^3uL (1.8-7.7) Lymphocytes # (Auto) 1.0 x10^3/uL (1.0-4.8) Monocytes # (Auto) 0.8 x10^3/uL (0.0-1.1) Eosinophils # (Auto) 0.4 x10^3/uL (0.0-0.7) Basophils # (Auto) 0.1 x10^3/uL (0.0-0.2) Sodium Level 137 mmol/L (136-145) Potassium Level 4.0 mmol/L (3.5-5.1) Chloride Level 102 mmol/L (98-107) Carbon Dioxide Level 26 mmol/L (21-32) Anion Gap 9 (6-14) Blood Urea Nitrogen 13 mg/dL (8-26) Creatinine 0.9 mg/dL (0.7-1.3) Estimated GFR (Cockcroft-Gault) 85.2 Glucose Level 101 mg/dL (70-99) Calcium Level 8.4 mg/dL (8.5-10.1) Procalcitonin 0.34 ng/mL (0.00-0.10) Laboratory Tests Test 10/13/18 10:59 10/13/18 16:36 10/13/18 19:59 10/14/18 02:55 Glucose (Fingerstick) 113 mg/dL (70-99) 156 mg/dL (70-99) 120 mg/dL (70-99) White Blood Count 3.2 x10^3/uL (4.0-11.0) Red Blood Count 2.43 x10^6/uL (4.30-5.70) Hemoglobin 6.8 g/dL (13.0-17.5) Hematocrit 21.8 % (39.0-53.0) Mean Corpuscular Volume 90 fL (79-100) Mean Corpuscular Hemoglobin 28 pg (25-35) Mean Corpuscular Hemoglobin Concent 31 g/dL (31-37) Red Cell Distribution Width 20.5 % (11.5-14.5) Platelet Count 305 x10^3/uL (140-400) Neutrophils (%) (Auto) 29 % (31-73) Lymphocytes (%) (Auto) 32 % (24-48) Monocytes (%) (Auto) 26 % (0-9) Eosinophils (%) (Auto) 12 % (0-3) Basophils (%) (Auto) 2 % (0-3) Neutrophils # (Auto) 0.9 x10^3uL (1.8-7.7) Lymphocytes # (Auto) 1.0 x10^3/uL (1.0-4.8) Monocytes # (Auto) 0.8 x10^3/uL (0.0-1.1) Eosinophils # (Auto) 0.4 x10^3/uL (0.0-0.7) Basophils # (Auto) 0.1 x10^3/uL (0.0-0.2) Sodium Level 137 mmol/L (136-145) Potassium Level 4.0 mmol/L (3.5-5.1) Chloride Level 102 mmol/L (98-107) Carbon Dioxide Level 26 mmol/L (21-32) Anion Gap 9 (6-14) Blood Urea Nitrogen 13 mg/dL (8-26) Creatinine 0.9 mg/dL (0.7-1.3) Estimated GFR (Cockcroft-Gault) 85.2 Glucose Level 101 mg/dL (70-99) Calcium Level 8.4 mg/dL (8.5-10.1) Procalcitonin 0.34 ng/mL (0.00-0.10) Test 10/14/18 07:21 Glucose (Fingerstick) 101 mg/dL (70-99) Microbiology 10/13/18 Blood Culture - Preliminary, Resulted NO GROWTH AFTER 1 DAY Medications Current Medications Acetaminophen (Tylenol) 650 mg 1X ONCE PO Last administered on 10/13/18at 01:57 ; Start 10/13/18 at 01:30; Stop 10/13/18 at 01:31; Status DC Sodium Chloride 1,000 ml @ 1,000 mls/hr 1X ONCE IV Last administered on at 01:58; Start 10/13/18 at 01:30; Stop 10/13/18 at 02:29; Status DC Levofloxacin/ Dextrose (Levaquin Per Pharmacy) 1 each PRN DAILY PRN MC SEE COMMENTS; Start 10/13/18 at 02:00; Stop 10/13/18 at 15:42; Status DC Levofloxacin/ Dextrose 150 ml @ 100 mls/hr 1X ONCE IV Last administered on at 02:56; Start 10/13/18 at 02:00; Stop 10/13/18 at 03:29; Status DC Vancomycin HCl (Vanco Per Pharmacy) 1 each PRN DAILY PRN MC SEE COMMENTS Last administered on 10/13/18at 16:22; Start 10/13/18 at 05:00 Vancomycin HCl 2 gm/Sodium Chloride 500 ml @ 250 mls/hr 1X ONCE IV Last administered on 10/13/18at 05:37; Start 10/13/18 at 02:45; Stop 10/13/18 at 04:44 ; Status DC Piperacillin Sod/ Tazobactam Sod (Zosyn Per Pharmacy) 1 each PRN DAILY PRN MC SEE COMMENTS; Start 10/13/18 at 03:30; Stop 10/13/18 at 15:42; Status DC Piperacillin Sod/ Tazobactam Sod 3.375 gm/Sodium Chloride 50 ml @ 100 mls/hr 1X ONCE IV Last administered on 10/13/18at 05:15; Start 10/13/18 at 04:00; Stop 10/13/18 at 04:29; Status DC Morphine Sulfate (Morphine Sulfate) 4 mg PRN Q2HR PRN IV PAIN; Start 10/13/18 at 04:00; Stop 10/14/18 at 03:59; Status DC Sodium Chloride 1,000 ml @ 100 mls/hr Q10H IV Last administered on 10/14/18at 02:50; Start 10/13/18 at 04:00; Stop 10/14/18 at 03:59; Status DC Acetaminophen (Tylenol) 650 mg PRN Q4HRS PRN PO FEVER; Start 10/13/18 at 04:00 ; Stop 10/14/18 at 03:59; Status DC Acetaminophen/ Hydrocodone Bitart (Lortab 10/325) 1 tab 1X ONCE PO Last administered on 10/13/18at 04:27; Start 10/13/18 at 04:30; Stop 10/13/18 at 04:41 ; Status DC Levofloxacin/ Dextrose 150 ml @ 100 mls/hr Q24H IV Last administered on at 04:00; Start 10/14/18 at 05:00 Piperacillin Sod/ Tazobactam Sod 3.375 gm/Sodium Chloride 50 ml @ 100 mls/hr Q6HRS IV Last administered on 10/13/18at 11:50; Start 10/13/18 at 12:00; Stop at 15:41; Status DC Dextrose (Dextrose 50%-Water Syringe) 12.5 gm PRN Q15MIN PRN IV SEE COMMENTS; Start 10/13/18 at 05:15 Vancomycin HCl 1.5 gm/Sodium Chloride 500 ml @ 250 mls/hr Q12H IV ; Start 10/13 at 17:30; Status Cancel Vancomycin HCl (Vancomycin Trough Level) 1 each 1X ONCE MC ; Start 10/14/18 at 17:00; Stop 10/14/18 at 17:00; Status DC Lactobacillus Rhamnosus (Culturelle) 1 cap BID PO Last administered on 09:45; Start 10/13/18 at 09:00; Stop 10/13/18 at 15:41; Status DC Amlodipine Besylate (Norvasc) 5 mg DAILY PO Last administered on 10/14/18 08: 48; Start 10/13/18 at 11:00 Atenolol (Tenormin) 50 mg DAILY PO Last administered on 10/14/18 08:51; Start 10/13/18 at 11:00 Atorvastatin Calcium (Lipitor) 10 mg DAILY PO Last administered on 10/14/18 08 :47; Start 10/13/18 at 11:00 Ergocalciferol (Vitamin D2) 50,000 unit WEEKLY PO ; Start 10/20/18 at 09:00 Folic Acid (Folic Acid) 1 mg DAILY PO Last administered on 10/14/18 08:48; Start 10/13/18 at 11:00 Albuterol/ Ipratropium (Duoneb) 3 ml RTQID NEB Last administered on 10/14/18 07:30; Start 10/13/18 at 12:00 Lisinopril (Prinivil) 40 mg DAILY PO Last administered on 10/14/18 08:49; Start 10/13/18 at 11:00 Oxycodone/ Acetaminophen (Percocet 10/325) 1 tab PRN Q6HRS PRN PO PAIN Last administered on 10/13/18at 20:01; Start 10/13/18 at 10:15 Pantoprazole Sodium (Protonix) 40 mg DAILYAC PO Last administered on 10/14/18 08:47; Start 10/14/18 at 07:30 Multi-Ingredient Mouthwash/Gargle (Magic Mouthwash) 10 ml PRN QID PRN PO MOUTH PAIN; Start 10/13/18 at 11:00 Valacyclovir HCl (Valtrex) 1,000 mg BID PO Last administered on 10/14/18 08:51 ; Start 10/13/18 at 21:00 Piperacillin Sod/ Tazobactam Sod 4.5 gm/Sodium Chloride 100 ml @ 200 mls/hr Q6HRS IV Last administered on 10/14/18at 05:02; Start 10/13/18 at 18:00 Vancomycin HCl 1.25 gm/Sodium Chloride 250 ml @ 167 mls/hr Q8H IV Last administered on 10/14/18at 08:52; Start 10/13/18 at 17:00 Vancomycin HCl (Vancomycin Trough Level) 1 each 1X ONCE MC ; Start 10/14/18 at 16:30; Stop 10/14/18 at 16:31 Active Scripts Active Duoneb 0.5-3(2.5) Mg/3 Ml (Albuterol/Ipratropium) 3 Ml Ampul.neb 3 Ml NEB RTQID 30 Days Reported Percocet 10-325 Mg Tablet (Oxycodone/Acetaminophen) 1 Each Tablet 1 Tab PO PRN Q6HRS PRN Folic Acid 1 Mg Tablet 1 Tab PO DAILY Atenolol 50 Mg Tablet 1 Tab PO DAILY Omeprazole 20 Mg Tablet. 1 Tab PO DAILY Atorvastatin Calcium 10 Mg Tablet 1 Tab PO DAILY Amlodipine Besylate 5 Mg Tablet 5 Mg PO DAILY Lisinopril 40 Mg Tablet 1 Tab PO DAILY Vitamin D2 (Ergocalciferol (Vitamin D2)) 50,000 Unit Capsule 1 Cap PO WEEKLY Vitals/I & O Vital Sign - Last 24 Hours 10/13/18 10/13/18 10/13/18 10/13/18 10:23 11:00 11:16 11:48 Temp 98.0 98.0 Pulse 101 101 Resp 20 B/P (MAP) 118/52 (74) 118/52 Pulse Ox 97 O2 Delivery Nasal Cannula Nasal Cannula Nasal Cannula O2 Flow Rate 1.5 2.0 2.0 10/13/18 10/13/18 10/13/18 10/13/18 11:49 11:50 15:00 15:18 Temp 98.5 98.5 Pulse 101 101 88 Resp 20 B/P (MAP) 118/52 118/52 99/56 (70) Pulse Ox 99 100 O2 Delivery Nasal Cannula Nasal Cannula O2 Flow Rate 2.0 2.0 10/13/18 10/13/18 10/13/18 10/13/18 19:00 19:49 20:01 20:14 Temp 98.8 98.8 Pulse 76 Resp 20 18 B/P (MAP) 107/45 (65) Pulse Ox 91 91 100 O2 Delivery Room Air Nasal Cannula Nasal Cannula Nasal Cannula O2 Flow Rate 1.5 1.5 2.0 10/13/18 10/13/18 10/14/18 10/14/18 21:01 23:01 03:03 07:00 Temp 98.7 97.8 97.9 98.7 97.8 97.9 Pulse 92 99 104 Resp 18 20 20 18 B/P (MAP) 117/60 (79) 128/59 (82) 116/54 (74) Pulse Ox 100 98 98 95 O2 Delivery Nasal Cannula Nasal Cannula Room Air Nasal Cannula O2 Flow Rate 2.0 2.0 2.0 10/14/18 10/14/18 10/14/18 10/14/18 07:30 08:48 08:49 08:51 Pulse 104 104 104 B/P (MAP) 116/54 116/54 116/54 Pulse Ox 96 O2 Delivery Nasal Cannula O2 Flow Rate 2.0 Intake and Output 10/13/18 10/13/18 10/14/18 15:00 23:00 07:00 Intake Total 950 ml 940 ml 1500 ml Output Total 500 ml 400 ml Balance 950 ml 440 ml 1100 ml ANDERSON MANCILLA MD Oct 14, 2018 09:53
--- NOTE | 2018-10-14 10:36 | PDOC ---
Infectious Disease Note Subjective: Subjective pt says had some cold spells had loose bm no n/v sob and cough continues no f/c ROS: ROS Negative except for above. Vital Signs: Vital Signs Vital Signs Date Time Temp Pulse Resp B/P (MAP) Pulse Ox O2 Delivery O2 Flow Rate FiO2 10/14/18 08:51 104 116/54 10/14/18 07:30 96 Nasal Cannula 2.0 10/14/18 07:00 97.9 18 97.9 Physical Exam: PHYSICAL EXAM GENERAL: The patient is propped up in bed, alert, in no apparent distress. HEENT: Pupils equally round, reactive. Normal conjunctivae. Oral cavity: Pharynx pink and moist, edentulous, a small ulceration left lower gum line. NECK: Supple. LUNGS: Diminished aeration. Nonlabored. HEART: S1, S2. ABDOMEN: Obese, soft and nontender with bowel sounds present. EXTREMITIES: No gross edema or cyanosis. SKIN: Warm without generalized rash. NEUROLOGIC: Alert and oriented x 3. Peripheral IV looks okay. Medications: Inpatient Meds: Current Medications Medications (Trade) Dose Ordered Sig/Katherine Start Time Stop Time Status Last Admin Dose Admin Acetaminophen (Tylenol) 650 mg PRN Q4HRS PRN 10/13/18 04:00 10/14/18 03:59 DC Acetaminophen/ Hydrocodone Bitart (Lortab 10/325) 1 tab 1X ONCE 10/13/18 04:30 10/13/18 04:41 DC 10/13/18 04:27 1 TAB Albuterol/ Ipratropium (Duoneb) 3 ml RTQID 10/13/18 12:00 10/14/18 07:30 3 ML Amlodipine Besylate (Norvasc) 5 mg DAILY 10/13/18 11:00 10/14/18 08:48 5 MG Atenolol (Tenormin) 50 mg DAILY 10/13/18 11:00 10/14/18 08:51 50 MG Atorvastatin Calcium (Lipitor) 10 mg DAILY 10/13/18 11:00 10/14/18 08:47 10 MG Dextrose (Dextrose 50%-Water Syringe) 12.5 gm PRN Q15MIN PRN 10/13/18 05:15 Ergocalciferol (Vitamin D2) 50,000 unit WEEKLY 10/20/18 09:00 Folic Acid (Folic Acid) 1 mg DAILY 10/13/18 11:00 10/14/18 08:48 1 MG Lactobacillus Rhamnosus (Culturelle) 1 cap BID 10/13/18 09:00 10/13/18 15:41 DC 10/13/18 09:45 1 CAP Levofloxacin/ Dextrose 150 ml @ 100 mls/hr Q24H 10/14/18 05:00 10/14/18 04:00 100 MLS/HR Levofloxacin/ Dextrose (Levaquin Per Pharmacy) 1 each PRN DAILY PRN 10/13/18 02:00 10/13/18 15:42 DC Lisinopril (Prinivil) 40 mg DAILY 10/13/18 11:00 10/14/18 08:49 40 MG Morphine Sulfate (Morphine Sulfate) 4 mg PRN Q2HR PRN 10/13/18 04:00 10/14/18 03:59 DC Multi-Ingredient Mouthwash/Gargle (Magic Mouthwash) 10 ml PRN QID PRN 10/13/18 11:00 Oxycodone/ Acetaminophen (Percocet 10/325) 1 tab PRN Q6HRS PRN 10/13/18 10:15 10/13/18 20:01 1 TAB Pantoprazole Sodium (Protonix) 40 mg DAILYAC 10/14/18 07:30 10/14/18 08:47 40 MG Piperacillin Sod/ Tazobactam Sod (Zosyn Per Pharmacy) 1 each PRN DAILY PRN 10/13/18 03:30 10/13/18 15:42 DC Piperacillin Sod/ Tazobactam Sod 3.375 gm/Sodium Chloride 50 ml @ 100 mls/hr Q6HRS 10/13/18 12:00 10/13/18 15:41 DC 10/13/18 11:50 100 MLS/HR Piperacillin Sod/ Tazobactam Sod 4.5 gm/Sodium Chloride 100 ml @ 200 mls/hr Q6HRS 10/13/18 18:00 10/14/18 05:02 200 MLS/HR Sodium Chloride 1,000 ml @ 100 mls/hr Q10H 10/13/18 04:00 10/14/18 03:59 DC 10/14/18 02:50 100 MLS/HR Valacyclovir HCl (Valtrex) 1,000 mg BID 10/13/18 21:00 10/14/18 08:51 1,000 MG Vancomycin HCl (Vanco Per Pharmacy) 1 each PRN DAILY PRN 10/13/18 05:00 10/13/18 16:22 1 EACH Vancomycin HCl (Vancomycin Trough Level) 1 each 1X ONCE 10/14/18 16:30 10/14/18 16:31 Vancomycin HCl 1.25 gm/Sodium Chloride 250 ml @ 167 mls/hr Q8H 10/13/18 17:00 10/14/18 08:52 167 MLS/HR Vancomycin HCl 1.5 gm/Sodium Chloride 500 ml @ 250 mls/hr Q12H 10/13/18 17:30 Cancel Vancomycin HCl 2 gm/Sodium Chloride 500 ml @ 250 mls/hr 1X ONCE 10/13/18 02:45 10/13/18 04:44 DC 10/13/18 05:37 250 MLS/HR Labs: Lab Laboratory Tests Test 10/13/18 10:59 10/13/18 16:36 10/13/18 19:59 10/14/18 02:55 Glucose (Fingerstick) 113 mg/dL (70-99) 156 mg/dL (70-99) 120 mg/dL (70-99) White Blood Count 3.2 x10^3/uL (4.0-11.0) Red Blood Count 2.43 x10^6/uL (4.30-5.70) Hemoglobin 6.8 g/dL (13.0-17.5) Hematocrit 21.8 % (39.0-53.0) Mean Corpuscular Volume 90 fL (79-100) Mean Corpuscular Hemoglobin 28 pg (25-35) Mean Corpuscular Hemoglobin Concent 31 g/dL (31-37) Red Cell Distribution Width 20.5 % (11.5-14.5) Platelet Count 305 x10^3/uL (140-400) Neutrophils (%) (Auto) 29 % (31-73) Lymphocytes (%) (Auto) 32 % (24-48) Monocytes (%) (Auto) 26 % (0-9) Eosinophils (%) (Auto) 12 % (0-3) Basophils (%) (Auto) 2 % (0-3) Neutrophils # (Auto) 0.9 x10^3uL (1.8-7.7) Lymphocytes # (Auto) 1.0 x10^3/uL (1.0-4.8) Monocytes # (Auto) 0.8 x10^3/uL (0.0-1.1) Eosinophils # (Auto) 0.4 x10^3/uL (0.0-0.7) Basophils # (Auto) 0.1 x10^3/uL (0.0-0.2) Sodium Level 137 mmol/L (136-145) Potassium Level 4.0 mmol/L (3.5-5.1) Chloride Level 102 mmol/L (98-107) Carbon Dioxide Level 26 mmol/L (21-32) Anion Gap 9 (6-14) Blood Urea Nitrogen 13 mg/dL (8-26) Creatinine 0.9 mg/dL (0.7-1.3) Estimated GFR (Cockcroft-Gault) 85.2 Glucose Level 101 mg/dL (70-99) Calcium Level 8.4 mg/dL (8.5-10.1) Procalcitonin 0.34 ng/mL (0.00-0.10) Test 10/14/18 07:21 Glucose (Fingerstick) 101 mg/dL (70-99) Micro RUN DATE: 10/14/18 PAGE 1 RUN TIME: 236 [facility] [address] [place] [address] Augie Sosa M.D., Deliverer Outside PATIENT: ANDERSON REYES ACCT: [id number] LOC: [address] [place] [address] U : [id number] AGE/SX: 63/M ROOM: [facility] REG : 10/13/[address]: Mayela IQBAL MD : 1955 BED: 1 DIS : STATUS: ADM IN TLOC: SPEC #: [id number] LAILA: 10/13/18 STATUS: RES REQ #: [id number] RECD: 10/13/[address] [facility] [address]: NUNU ALMENDAREZ MD SOURCE: BLOOD ENTR: 10/13/[address] [facility] [address]: ANDERSON MANCILLA MD [facility]: ORDERED: BCULT Procedure Result BLOOD CULTURE Preliminary NO GROWTH AFTER 1 DAY Objective: Assessment: 1. Healthcare-acquired pneumonia. 2. Immunosuppression. 3. Oral ulcers. 4. Stage 4 non-small cell lung cancer, undergoing palliative chemotherapy. 5. Diabetes mellitus. 6. Hypertension. 7. Diarrhea Plan: Plan of Care vanc, Zosyn, Levaquin for now Probiotics cont Valtrex f/u c diff pcr Monitor labs f/u cultures Supportive care DEVON MOON MD Oct 14, 2018 10:36
[2018-10-14] MEDS: VANCOMYCIN PER PHARMACY MC PRN ×2 (12:44→19:53)
[2018-10-14] MEDS ORDERED: ACETAMINOPHEN 325 MG TABLET. PO ONE (14:00)
[2018-10-14 19:11] LABS: VANC TR 20.2 mcg/mL (10.0-20.0)
[2018-10-14] MEDS: TBO-FILGRASTIM 480 MCG/0.8 ML SYRINGE. SQ SCH (20:07)
[2018-10-14] MEDS: VANCOMYCIN 1 GM in IV NORMAL SALINE 250ML 250 ML IV SCH (20:07)
--- NOTE | 2018-10-14 20:27 | CONS ---
DATE OF CONSULTATION: 10/14/2018 TYPE OF REPORT: Medical oncology consultation. CONSULTATION REQUESTING PHYSICIAN: Louis Cintron M.D. REASON FOR CONSULTATION: Lung cancer, now admitted with pneumonia. HISTORY OF PRESENT ILLNESS: The patient is a 63-year-old -French gentleman who was hospitalized in January of 2018 with respiratory distress. He had left-sided thoracentesis and the cytology was negative. He presented to the hospital in March of 2018 and he underwent open biopsy of the left pleura on 05/01/2018, which revealed adenocarcinoma. PET scan on 05/16/2018 revealed extensive hypermetabolic left pleural malignancy. There is evidence of subcarinal lymphadenopathy and epicardial nodes and internal mammary lymph nodes. There is also evidence of upper abdominal lymphadenopathy. He was started on palliative chemotherapy with carboplatin, pemetrexed and Keytruda on 06/11/2018. After 4 cycles of treatment, PET scan on 09/05/2018 revealed worsening pleural thickening in the left chest and worsening lymphadenopathy. Hence, he was started on Taxotere on 09/13/2018. He received cycle #2 on 10/04/2018. He presented to [facility] on 10/13/2018 with fever. He underwent a chest x-ray on 10/13/2018 that revealed opacity involving the right lateral upper lung field level, which is new when compared to the prior study and possible infiltrate was thought to be the etiology and he was started on antibiotics for pneumonia. He continues to have fever. He denies chest pain. PAST MEDICAL HISTORY: Diabetes mellitus and hypertension. FAMILY HISTORY: Positive for colon cancer. SOCIAL HISTORY: He is a former smoker. REVIEW OF SYSTEMS: A 12-point review of system was performed. Pertinent positives are mentioned in the history of present illness. Rest of the system review is negative. PHYSICAL EXAMINATION: VITAL SIGNS: Blood pressure 105/53 and temperature 97.9. HEENT: Head: Atraumatic and normocephalic. Eyes: No icterus. NECK: Supple. CHEST: Bilaterally symmetrical. HEART: S1 and S2 normal. ABDOMEN: Soft and nontender. CENTRAL NERVOUS SYSTEM: No focal deficits. LYMPHATICS: No lymphadenopathy. SKIN: No rashes. PSYCHOLOGICAL: Mood and affect are appropriate. LABORATORY DATA: WBC 3.2, hemoglobin 6.8 and platelet count 305. Absolute neutrophil count is 0.9. Creatinine 0.9. IMPRESSION AND PLAN: 1. Stage 4 [id number] lung cancer/adenocarcinoma, diagnosed by left pleural biopsy on 05/01/2018. He previously received chemotherapy with carboplatin, pemetrexed and Keytruda and he had disease progression after 4 cycles and hence, he was started on Taxotere on 09/13/2018. He received cycle #2 on 10/04/2018. I will continue to monitor for toxicities and he is tolerating it quite well. He is now admitted with neutropenic fever. 2. Pneumonia. Continue antibiotics by Dr. Louis Cintron. I discussed with Dr. Cintron. 3. Anemia. Hemoglobin is worse at 6.8 due to malignancy, chemotherapy and now underlying infection. Plan, 1 unit of packed red blood cells transfusion. I discussed with the registered nurse. 4. Neutropenia due to chemotherapy. I will start him on Granix. MYNOR MILLER MD DR: USMAN/nts JOB#: [id number] / [id number] LOUIS Miller MD [facility]ottie
[2018-10-14] MEDS: oxyCODONE/APAP 10/325 1 TAB TABLET PO PRN (22:32)
[2018-10-15] MEDS: PIPERACILLIN/TAZOBACTAM 4.5 GM in IV NORMAL SALINE 100ML 100 ML IV SCH ×3 (00:08→11:41)
[2018-10-15 03:00] VITALS: BP 102/46
[2018-10-15] MEDS: VANCOMYCIN 1 GM in IV NORMAL SALINE 250ML 250 ML IV SCH (03:58)
[2018-10-15] MEDS: PANTOPRAZOLE 40 MG TABLET.DR. PO SCH (06:29)
[2018-10-15] MEDS: oxyCODONE/APAP 10/325 1 TAB TABLET PO PRN ×3 (06:29→20:38)
[2018-10-15 07:00] VITALS: BP 100/49
[2018-10-15] MEDS: IPRATRPIUM/ALBUTEROL 0.5/2.5MG 3 ML NEBU. NEB SCH ×4 (08:59→21:25)
[2018-10-15] MEDS: valACYclovir 500 MG TABLET. PO SCH ×2 (09:02→21:05)
[2018-10-15] MEDS: ATORVASTATIN CALCIUM 10 MG TABLET. PO SCH (09:03)
[2018-10-15] MEDS: LISINOPRIL 20 MG TABLET PO SCH (09:03)
[2018-10-15] MEDS: FOLIC ACID 1 MG TABLET. PO SCH (09:03)
[2018-10-15] MEDS: amLODIPine BESYLATE 5 MG TABLET PO SCH (09:03)
[2018-10-15] MEDS: ATENOLOL 50 MG TABLET. PO SCH (09:04)
--- NOTE | 2018-10-15 09:06 | PDOC ---
PROGRESS NOTES Subjective Subjective HPI - f/u of Stage 4 bdu-[id number]-[id number] lung cancer/adenocarcinoma ROS - no fever Objective Objective Vital Signs Date Time Temp Pulse Resp B/P (MAP) Pulse Ox O2 Delivery O2 Flow Rate FiO2 10/15/18 08:59 99 Nasal Cannula 3.0 10/15/18 07:29 14 10/15/18 07:00 99.0 106 100/49 (66) 99.0 Intake and Output 10/15/18 06:59 Intake Total 2708 ml Balance 2708 ml Intake Oral 1710 ml IV Total 350 ml Blood Product IV Normal Saline Flush 648 ml # Voids 2 # Bowel Movements 1 Physical Exam Heart: Normal S1, Normal S2 General: Alert, Oriented X3 Lungs: Clear to auscultation Neuro: Normal speech Psych/Mental Status: Mental status NL Assessment Assessment Problems Medical Problems: (1) Pneumonia Status: Acute IMPRESSION AND PLAN: 1. Stage 4 fas-cqyhu-prlv lung cancer/adenocarcinoma, diagnosed by left pleural biopsy on 05/01/2018. He previously received chemotherapy with carboplatin, pemetrexed and Keytruda and he had disease progression after 4 cycles and hence, he was started on Taxotere on 09/13/2018. He received cycle #2 on 10/04/2018. I will continue to monitor for toxicities and he is tolerating it quite well. He is now admitted with neutropenic fever. 2. Pneumonia. Continue antibiotics by Dr. Louis Cintron. I discussed with Dr. Cintron. 3. Anemia. Hemoglobin is worse at 6.8 due to malignancy, chemotherapy and now underlying infection. Plan, 1 unit of packed red blood cells transfusion. I discussed with the registered nurse. 4. Neutropenia due to chemotherapy. I started him on Granix 10/14/18. 5. Plan port when ANC > 1.5. I d/w RN from IR. Comment Review of Relevant I have reviewed the following items vanessa (where applicable) has been applied. Labs Laboratory Tests Test 10/13/18 10:59 10/13/18 16:36 10/13/18 19:59 10/14/18 02:55 Glucose (Fingerstick) 113 mg/dL (70-99) 156 mg/dL (70-99) 120 mg/dL (70-99) White Blood Count 3.2 x10^3/uL (4.0-11.0) Red Blood Count 2.43 x10^6/uL (4.30-5.70) Hemoglobin 6.8 g/dL (13.0-17.5) Hematocrit 21.8 % (39.0-53.0) Mean Corpuscular Volume 90 fL (79-100) Mean Corpuscular Hemoglobin 28 pg (25-35) Mean Corpuscular Hemoglobin Concent 31 g/dL (31-37) Red Cell Distribution Width 20.5 % (11.5-14.5) Platelet Count 305 x10^3/uL (140-400) Neutrophils (%) (Auto) 29 % (31-73) Lymphocytes (%) (Auto) 32 % (24-48) Monocytes (%) (Auto) 26 % (0-9) Eosinophils (%) (Auto) 12 % (0-3) Basophils (%) (Auto) 2 % (0-3) Neutrophils # (Auto) 0.9 x10^3uL (1.8-7.7) Lymphocytes # (Auto) 1.0 x10^3/uL (1.0-4.8) Monocytes # (Auto) 0.8 x10^3/uL (0.0-1.1) Eosinophils # (Auto) 0.4 x10^3/uL (0.0-0.7) Basophils # (Auto) 0.1 x10^3/uL (0.0-0.2) Sodium Level 137 mmol/L (136-145) Potassium Level 4.0 mmol/L (3.5-5.1) Chloride Level 102 mmol/L (98-107) Carbon Dioxide Level 26 mmol/L (21-32) Anion Gap 9 (6-14) Blood Urea Nitrogen 13 mg/dL (8-26) Creatinine 0.9 mg/dL (0.7-1.3) Estimated GFR (Cockcroft-Gault) 85.2 Glucose Level 101 mg/dL (70-99) Calcium Level 8.4 mg/dL (8.5-10.1) Procalcitonin 0.34 ng/mL (0.00-0.10) Test 10/14/18 07:21 10/14/18 11:00 10/14/18 11:05 10/14/18 16:14 Glucose (Fingerstick) 101 mg/dL (70-99) 112 mg/dL (70-99) 174 mg/dL (70-99) Clostridium difficile Toxin B Gene Negative (Negative) Test 10/14/18 18:40 10/14/18 20:48 10/15/18 07:51 Vancomycin Level Trough 20.2 mcg/mL (10.0-20.0) Vancomycin Last Dose Date 10/14/18 Vancomycin Last Dose Time 0500 Glucose (Fingerstick) 132 mg/dL (70-99) 122 mg/dL (70-99) Laboratory Tests Test 10/14/18 11:00 10/14/18 11:05 10/14/18 16:14 10/14/18 18:40 Clostridium difficile Toxin B Gene Negative (Negative) Glucose (Fingerstick) 112 mg/dL (70-99) 174 mg/dL (70-99) Vancomycin Level Trough 20.2 mcg/mL (10.0-20.0) Vancomycin Last Dose Date 10/14/18 Vancomycin Last Dose Time 0500 Test 10/14/18 20:48 10/15/18 07:51 Glucose (Fingerstick) 132 mg/dL (70-99) 122 mg/dL (70-99) Microbiology 10/13/18 Blood Culture - Preliminary, Resulted NO GROWTH AFTER 2 DAYS Medications Current Medications Acetaminophen (Tylenol) 650 mg 1X ONCE PO Last administered on 10/13/18at 01:57 ; Start 10/13/18 at 01:30; Stop 10/13/18 at 01:31; Status DC Sodium Chloride 1,000 ml @ 1,000 mls/hr 1X ONCE IV Last administered on at 01:58; Start 10/13/18 at 01:30; Stop 10/13/18 at 02:29; Status DC Levofloxacin/ Dextrose (Levaquin Per Pharmacy) 1 each PRN DAILY PRN MC SEE COMMENTS; Start 10/13/18 at 02:00; Stop 10/13/18 at 15:42; Status DC Levofloxacin/ Dextrose 150 ml @ 100 mls/hr 1X ONCE IV Last administered on at 02:56; Start 10/13/18 at 02:00; Stop 10/13/18 at 03:29; Status DC Vancomycin HCl (Vanco Per Pharmacy) 1 each PRN DAILY PRN MC SEE COMMENTS Last administered on 10/14/18at 19:53; Start 10/13/18 at 05:00 Vancomycin HCl 2 gm/Sodium Chloride 500 ml @ 250 mls/hr 1X ONCE IV Last administered on 10/13/18at 05:37; Start 10/13/18 at 02:45; Stop 10/13/18 at 04:44 ; Status DC Piperacillin Sod/ Tazobactam Sod (Zosyn Per Pharmacy) 1 each PRN DAILY PRN MC SEE COMMENTS; Start 10/13/18 at 03:30; Stop 10/13/18 at 15:42; Status DC Piperacillin Sod/ Tazobactam Sod 3.375 gm/Sodium Chloride 50 ml @ 100 mls/hr 1X ONCE IV Last administered on 10/13/18at 05:15; Start 10/13/18 at 04:00; Stop 10/13/18 at 04:29; Status DC Morphine Sulfate (Morphine Sulfate) 4 mg PRN Q2HR PRN IV PAIN; Start 10/13/18 at 04:00; Stop 10/14/18 at 03:59; Status DC Sodium Chloride 1,000 ml @ 100 mls/hr Q10H IV Last administered on 10/14/18at 02:50; Start 10/13/18 at 04:00; Stop 10/14/18 at 03:59; Status DC Acetaminophen (Tylenol) 650 mg PRN Q4HRS PRN PO FEVER; Start 10/13/18 at 04:00 ; Stop 10/14/18 at 03:59; Status DC Acetaminophen/ Hydrocodone Bitart (Lortab 10/325) 1 tab 1X ONCE PO Last administered on 10/13/18at 04:27; Start 10/13/18 at 04:30; Stop 10/13/18 at 04:41 ; Status DC Levofloxacin/ Dextrose 150 ml @ 100 mls/hr Q24H IV Last administered on at 05:04; Start 10/14/18 at 05:00 Piperacillin Sod/ Tazobactam Sod 3.375 gm/Sodium Chloride 50 ml @ 100 mls/hr Q6HRS IV Last administered on 10/13/18at 11:50; Start 10/13/18 at 12:00; Stop at 15:41; Status DC Dextrose (Dextrose 50%-Water Syringe) 12.5 gm PRN Q15MIN PRN IV SEE COMMENTS; Start 10/13/18 at 05:15 Vancomycin HCl 1.5 gm/Sodium Chloride 500 ml @ 250 mls/hr Q12H IV ; Start 10/13 at 17:30; Status Cancel Vancomycin HCl (Vancomycin Trough Level) 1 each 1X ONCE MC ; Start 10/14/18 at 17:00; Stop 10/14/18 at 17:00; Status DC Lactobacillus Rhamnosus (Culturelle) 1 cap BID PO Last administered on at 09:45; Start 10/13/18 at 09:00; Stop 10/13/18 at 15:41; Status DC Amlodipine Besylate (Norvasc) 5 mg DAILY PO Last administered on 10/14/18at 08: 48; Start 10/13/18 at 11:00 Atenolol (Tenormin) 50 mg DAILY PO Last administered on 10/14/18at 08:51; Start 10/13/18 at 11:00 Atorvastatin Calcium (Lipitor) 10 mg DAILY PO Last administered on 10/14/18at 08 :47; Start 10/13/18 at 11:00 Ergocalciferol (Vitamin D2) 50,000 unit WEEKLY PO ; Start 10/20/18 at 09:00 Folic Acid (Folic Acid) 1 mg DAILY PO Last administered on 10/14/18at 08:48; Start 10/13/18 at 11:00 Albuterol/ Ipratropium (Duoneb) 3 ml RTQID NEB Last administered on 10/15/18at 08:59; Start 10/13/18 at 12:00 Lisinopril (Prinivil) 40 mg DAILY PO Last administered on 10/14/18at 08:49; Start 10/13/18 at 11:00 Oxycodone/ Acetaminophen (Percocet 10/325) 1 tab PRN Q6HRS PRN PO PAIN Last administered on 10/15/18at 06:29; Start 10/13/18 at 10:15 Pantoprazole Sodium (Protonix) 40 mg DAILYAC PO Last administered on 10/15/18at 06:29; Start 10/14/18 at 07:30 Multi-Ingredient Mouthwash/Gargle (Magic Mouthwash) 10 ml PRN QID PRN PO MOUTH PAIN; Start 10/13/18 at 11:00 Valacyclovir HCl (Valtrex) 1,000 mg BID PO Last administered on 10/14/18at 20:08 ; Start 10/13/18 at 21:00 Piperacillin Sod/ Tazobactam Sod 4.5 gm/Sodium Chloride 100 ml @ 200 mls/hr Q6HRS IV Last administered on 10/15/18at 06:29; Start 10/13/18 at 18:00 Vancomycin HCl 1.25 gm/Sodium Chloride 250 ml @ 167 mls/hr Q8H IV Last administered on 10/14/18at 08:52; Start 10/13/18 at 17:00; Stop 10/14/18 at 19:22 ; Status DC Vancomycin HCl (Vancomycin Trough Level) 1 each 1X ONCE MC Last administered on 10/14/18at 16:30; Start 10/14/18 at 16:30; Stop 10/14/18 at 16:31; Status DC Acetaminophen (Tylenol) 650 mg 1X ONCE PO Last administered on 10/14/18at 14:09 ; Start 10/14/18 at 14:00; Stop 10/14/18 at 14:01; Status DC Tbo-Filgrastim (Granix) 480 mcg QHS SQ Last administered on 10/14/18at 20:07; Start 10/14/18 at 21:00 Vancomycin HCl 1 gm/Sodium Chloride 250 ml @ 250 mls/hr Q8H IV Last administered on 10/15/18at 03:58; Start 10/14/18 at 20:00 Active Scripts Active Duoneb 0.5-3(2.5) Mg/3 Ml (Albuterol/Ipratropium) 3 Ml Ampul.neb 3 Ml NEB RTQID 30 Days Reported Percocet 10-325 Mg Tablet (Oxycodone/Acetaminophen) 1 Each Tablet 1 Tab PO PRN Q6HRS PRN Folic Acid 1 Mg Tablet 1 Tab PO DAILY Atenolol 50 Mg Tablet 1 Tab PO DAILY Omeprazole 20 Mg Tablet.dr 1 Tab PO DAILY Atorvastatin Calcium 10 Mg Tablet 1 Tab PO DAILY Amlodipine Besylate 5 Mg Tablet 5 Mg PO DAILY Lisinopril 40 Mg Tablet 1 Tab PO DAILY Vitamin D2 (Ergocalciferol (Vitamin D2)) 50,000 Unit Capsule 1 Cap PO WEEKLY Vitals/I & O Vital Sign - Last 24 Hours 10/14/18 10/14/18 10/14/18 10/14/18 10:51 12:03 14:54 15:00 Temp 97.9 99.7 99.7 97.9 99.7 99.7 Pulse 96 96 96 Resp 18 20 20 B/P (MAP) 105/53 (70) 97/46 97/46 (63) Pulse Ox 93 99 96 O2 Delivery Nasal Cannula Nasal Cannula Nasal Cannula O2 Flow Rate 2.0 2.0 2.0 10/14/18 10/14/18 10/14/18 10/14/18 15:10 15:39 15:54 16:52 Temp 99.0 99.1 99.2 99.0 99.1 99.2 Pulse 92 95 85 Resp 20 20 20 B/P (MAP) 104/53 103/52 103/55 O2 Delivery Nasal Cannula O2 Flow Rate 2.0 10/14/18 10/14/18 10/14/18 10/14/18 17:33 18:34 20:00 21:14 Temp 97.7 97.9 97.7 97.9 Pulse 88 87 Resp 20 20 B/P (MAP) 110/53 118/59 (78) Pulse Ox 93 99 O2 Delivery Room Air Nasal Cannula Nasal Cannula O2 Flow Rate 1.5 2.0 10/14/18 10/14/18 10/14/18 10/15/18 22:32 23:00 23:35 03:00 Temp 99.2 98.8 99.2 98.8 Pulse 104 91 Resp 16 18 18 B/P (MAP) 106/56 (73) 102/46 (64) Pulse Ox 97 97 99 O2 Delivery Nasal Cannula Room Air Nasal Cannula Room Air 10/15/18 10/15/18 10/15/18 10/15/18 06:29 07:00 07:29 08:59 Temp 99.0 99.0 Pulse 106 Resp 18 18 14 B/P (MAP) 100/49 (66) Pulse Ox 99 94 99 O2 Delivery Nasal Cannula Nasal Cannula Nasal Cannula O2 Flow Rate 1.5 2.0 1.5 3.0 Intake and Output 10/14/18 10/14/18 10/15/18 14:59 22:59 06:59 Intake Total 928 ml 1180 ml 600 ml Balance 928 ml 1180 ml 600 ml MYNOR MILLER MD Oct 15, 2018 09:06
[2018-10-15 10:38] VITALS: BP 106/55
[2018-10-15 10:49] LABS: BASO % 1 % (0-3); EOS # 0.5 x10^3/uL (0.0-0.7); EOS % 10 % (0-3); HEMATOCRIT 24.9 % (39.0-53.0); HEMOGLOBIN 7.7 g/dL (13.0-17.5); LYMPH # 0.9 x10^3/uL (1.0-4.8); LYMPH % 16 % (24-48); MEAN CORPUSCULAR HEMOGLOBIN 28 pg (25-35); MEAN CORPUSCULAR HGB CONC 31 g/dL (31-37); MEAN CORPUSCULAR VOLUME 91 fL (79-100); MONO # 1.3 x10^3/uL (0.0-1.1); MONO % 23 % (0-9); NEUT # 2.8 x10^3uL (1.8-7.7); NEUT % 50 % (31-73); PLATELET COUNT 345 x10^3/uL (140-400); RED BLOOD COUNT 2.72 x10^6/uL (4.30-5.70); RED CELL DISTRIBUTION WIDTH 19.5 % (11.5-14.5); WHITE BLOOD COUNT 5.6 x10^3/uL (4.0-11.0)
[2018-10-15 11:01] LABS: CALCIUM 9.1 mg/dL (8.5-10.1); GFR 75.5; POTASSIUM 3.9 mmol/L (3.5-5.1)
--- NOTE | 2018-10-15 11:11 | PDOC ---
Infectious Disease Note Subjective: Subjective pt feels better today no f/c sob and cough are improving sores in m outh are improving ROS: ROS Negative except for above. Vital Signs: Vital Signs Vital Signs Date Time Temp Pulse Resp B/P (MAP) Pulse Ox O2 Delivery O2 Flow Rate FiO2 10/15/18 10:38 97.9 97 18 106/55 (72) 99 Nasal Cannula 2.0 97.9 Physical Exam: PHYSICAL EXAM GENERAL: The patient is propped up in bed, alert, in no apparent distress. HEENT: Pupils equally round, reactive. Normal conjunctivae. Oral cavity: Pharynx pink and moist, edentulous, a small ulceration left lower gum line. NECK: Supple. LUNGS: Diminished aeration. Nonlabored. HEART: S1, S2. ABDOMEN: Obese, soft and nontender with bowel sounds present. EXTREMITIES: No gross edema or cyanosis. SKIN: Warm without generalized rash. NEUROLOGIC: Alert and oriented x 3. Peripheral IV looks okay. Medications: Inpatient Meds: Current Medications Medications (Trade) Dose Ordered Sig/Katherine Start Time Stop Time Status Last Admin Dose Admin Acetaminophen (Tylenol) 650 mg 1X ONCE 10/14/18 14:00 10/14/18 14:01 DC 10/14/18 14:09 650 MG Acetaminophen/ Hydrocodone Bitart (Lortab 10/325) 1 tab 1X ONCE 10/13/18 04:30 10/13/18 04:41 DC 10/13/18 04:27 1 TAB Albuterol/ Ipratropium (Duoneb) 3 ml RTQID 10/13/18 12:00 10/15/18 08:59 3 ML Amlodipine Besylate (Norvasc) 5 mg DAILY 10/13/18 11:00 10/15/18 09:03 5 MG Atenolol (Tenormin) 50 mg DAILY 10/13/18 11:00 10/15/18 09:04 50 MG Atorvastatin Calcium (Lipitor) 10 mg DAILY 10/13/18 11:00 10/15/18 09:03 10 MG Dextrose (Dextrose 50%-Water Syringe) 12.5 gm PRN Q15MIN PRN 10/13/18 05:15 Ergocalciferol (Vitamin D2) 50,000 unit WEEKLY 10/20/18 09:00 Folic Acid (Folic Acid) 1 mg DAILY 10/13/18 11:00 10/15/18 09:03 1 MG Lactobacillus Rhamnosus (Culturelle) 1 cap BID 10/13/18 09:00 10/13/18 15:41 DC 10/13/18 09:45 1 CAP Levofloxacin/ Dextrose 150 ml @ 100 mls/hr Q24H 10/14/18 05:00 10/15/18 05:04 100 MLS/HR Levofloxacin/ Dextrose (Levaquin Per Pharmacy) 1 each PRN DAILY PRN 10/13/18 02:00 10/13/18 15:42 DC Lisinopril (Prinivil) 40 mg DAILY 10/13/18 11:00 10/15/18 09:03 40 MG Morphine Sulfate (Morphine Sulfate) 4 mg PRN Q2HR PRN 10/13/18 04:00 10/14/18 03:59 DC Multi-Ingredient Mouthwash/Gargle (Magic Mouthwash) 10 ml PRN QID PRN 10/13/18 11:00 Oxycodone/ Acetaminophen (Percocet 10/325) 1 tab PRN Q6HRS PRN 10/13/18 10:15 10/15/18 06:29 1 TAB Pantoprazole Sodium (Protonix) 40 mg DAILYAC 10/14/18 07:30 10/15/18 06:29 40 MG Piperacillin Sod/ Tazobactam Sod (Zosyn Per Pharmacy) 1 each PRN DAILY PRN 10/13/18 03:30 10/13/18 15:42 DC Piperacillin Sod/ Tazobactam Sod 3.375 gm/Sodium Chloride 50 ml @ 100 mls/hr Q6HRS 10/13/18 12:00 10/13/18 15:41 DC 10/13/18 11:50 100 MLS/HR Piperacillin Sod/ Tazobactam Sod 4.5 gm/Sodium Chloride 100 ml @ 200 mls/hr Q6HRS 10/13/18 18:00 10/15/18 06:29 200 MLS/HR Sodium Chloride 1,000 ml @ 100 mls/hr Q10H 10/13/18 04:00 10/14/18 03:59 DC 10/14/18 02:50 100 MLS/HR Tbo-Filgrastim (Granix) 480 mcg QHS 10/14/18 21:00 10/14/18 20:07 480 MCG Valacyclovir HCl (Valtrex) 1,000 mg BID 10/13/18 21:00 10/15/18 09:02 1,000 MG Vancomycin HCl (Vanco Per Pharmacy) 1 each PRN DAILY PRN 10/13/18 05:00 10/14/18 19:53 1 EACH Vancomycin HCl (Vancomycin Trough Level) 1 each 1X ONCE 10/14/18 16:30 10/14/18 16:31 DC 10/14/18 16:30 1 EACH Vancomycin HCl 1.25 gm/Sodium Chloride 250 ml @ 167 mls/hr Q8H 10/13/18 17:00 10/14/18 19:22 DC 10/14/18 08:52 167 MLS/HR Vancomycin HCl 1.5 gm/Sodium Chloride 500 ml @ 250 mls/hr Q12H 10/13/18 17:30 Cancel Vancomycin HCl 1 gm/Sodium Chloride 250 ml @ 250 mls/hr Q8H 10/14/18 20:00 10/15/18 03:58 250 MLS/HR Vancomycin HCl 2 gm/Sodium Chloride 500 ml @ 250 mls/hr 1X ONCE 10/13/18 02:45 10/13/18 04:44 DC 10/13/18 05:37 250 MLS/HR Labs: Lab Laboratory Tests Test 10/14/18 16:14 10/14/18 18:40 10/14/18 20:48 10/15/18 07:51 Glucose (Fingerstick) 174 mg/dL (70-99) 132 mg/dL (70-99) 122 mg/dL (70-99) Vancomycin Level Trough 20.2 mcg/mL (10.0-20.0) Vancomycin Last Dose Date 10/14/18 Vancomycin Last Dose Time 0500 Test 10/15/18 10:20 10/15/18 11:02 White Blood Count 5.6 x10^3/uL (4.0-11.0) Red Blood Count 2.72 x10^6/uL (4.30-5.70) Hemoglobin 7.7 g/dL (13.0-17.5) Hematocrit 24.9 % (39.0-53.0) Mean Corpuscular Volume 91 fL (79-100) Mean Corpuscular Hemoglobin 28 pg (25-35) Mean Corpuscular Hemoglobin Concent 31 g/dL (31-37) Red Cell Distribution Width 19.5 % (11.5-14.5) Platelet Count 345 x10^3/uL (140-400) Neutrophils (%) (Auto) 50 % (31-73) Lymphocytes (%) (Auto) 16 % (24-48) Monocytes (%) (Auto) 23 % (0-9) Eosinophils (%) (Auto) 10 % (0-3) Basophils (%) (Auto) 1 % (0-3) Neutrophils # (Auto) 2.8 x10^3uL (1.8-7.7) Lymphocytes # (Auto) 0.9 x10^3/uL (1.0-4.8) Monocytes # (Auto) 1.3 x10^3/uL (0.0-1.1) Eosinophils # (Auto) 0.5 x10^3/uL (0.0-0.7) Basophils # (Auto) 0.0 x10^3/uL (0.0-0.2) Reticulocyte Count (auto) 1.4 % (0.5-2.5) Sodium Level 138 mmol/L (136-145) Potassium Level 3.9 mmol/L (3.5-5.1) Chloride Level 105 mmol/L (98-107) Carbon Dioxide Level 21 mmol/L (21-32) Anion Gap 12 (6-14) Blood Urea Nitrogen 8 mg/dL (8-26) Creatinine 1.0 mg/dL (0.7-1.3) Estimated GFR (Cockcroft-Gault) 75.5 Glucose Level 140 mg/dL (70-99) Calcium Level 9.1 mg/dL (8.5-10.1) Glucose (Fingerstick) 132 mg/dL (70-99) Micro RUN DATE: 10/14/18 PAGE 1 RUN TIME: 236 [facility] [address] [place] [address] Augie Sosa M.D., [employer] PATIENT: ANDERSON REYES ACCT: [id number] LOC: [address] [place] [id number] U : [id number] AGE/SX: 63/M ROOM: [facility] REG : 10/13/[address]: Mayela IQBAL MD : 1955 BED: 1 DIS : STATUS: ADM IN TLOC: SPEC #: [id number] LAILA: 10/13/18 STATUS: RES REQ #: [id number] RECD: 10/13/[address]: NUNU ALMENDAREZ MD SOURCE: BLOOD ENTR: 10/13/18 [facility] DR: ANDERSON MANCILLA MD SPDESC: ORDERED: BCULT Procedure Result BLOOD CULTURE Preliminary NO GROWTH AFTER 1 DAY Objective: Assessment: 1. Healthcare-acquired pneumonia. 2. Immunosuppression. 3. Oral ulcers. 4. Stage 4 non-small cell lung cancer, undergoing palliative chemotherapy. 5. Diabetes mellitus. 6. Hypertension. 7. Diarrhea C diff neg 10/14 Plan: Plan of Care DC Vanc trough is > 20 DC Zosyn cont Levaquin and observe Probiotics cont Valtrex Monitor labs f/u cultures Supportive care DEVON MOON MD Oct 15, 2018 11:11
--- NOTE | 2018-10-15 13:21 | PDOC ---
PROGRESS NOTES Subjective Subjective Patient feeling slightly better. Low-grade temps noted over the last 24 hours. Port-A-Cath placement postponed. Negative C. difficile noted. Medication adjusted by infectious disease now on by mouth Levaquin. Objective Objective Vital Signs Date Time Temp Pulse Resp B/P (MAP) Pulse Ox O2 Delivery O2 Flow Rate FiO2 10/15/18 13:03 14 Nasal Cannula 1.5 10/15/18 12:06 96 10/15/18 10:38 97.9 97 106/55 (72) 97.9 Intake and Output 10/15/18 07:00 Intake Total 2708 ml Balance 2708 ml Intake Oral 1710 ml IV Total 350 ml Blood Product IV Normal Saline Flush 648 ml # Voids 2 # Bowel Movements 1 Physical Exam Abdomen: Normal bowel sounds Heart: Regular rate Extremities: No edema General: Alert Lungs: Other (crackles left lung base.) Assessment Assessment Problems Medical Problems: (1) Pneumonia Status: Acute Healthcare acquired pneumonia. Lung cancer stage 4 on chemotherapy. Last treatment 10/04 Neutropenia Anemia Type 2 diabetes Hypertension Chronic kidney disease stage III Plan Plan of Care Continue heme oncology care. Continue care per infectious disease. Antibiotics of vancomycin and Zosyn discontinued. Levaquin and Valtrex continued Monitor fevers and symptomatology continue pulmonary toilet Comment Review of Relevant I have reviewed the following items vanessa (where applicable) has been applied. Labs Laboratory Tests Test 10/13/18 16:36 10/13/18 19:59 10/14/18 02:55 10/14/18 07:21 Glucose (Fingerstick) 156 mg/dL (70-99) 120 mg/dL (70-99) 101 mg/dL (70-99) White Blood Count 3.2 x10^3/uL (4.0-11.0) Red Blood Count 2.43 x10^6/uL (4.30-5.70) Hemoglobin 6.8 g/dL (13.0-17.5) Hematocrit 21.8 % (39.0-53.0) Mean Corpuscular Volume 90 fL (79-100) Mean Corpuscular Hemoglobin 28 pg (25-35) Mean Corpuscular Hemoglobin Concent 31 g/dL (31-37) Red Cell Distribution Width 20.5 % (11.5-14.5) Platelet Count 305 x10^3/uL (140-400) Neutrophils (%) (Auto) 29 % (31-73) Lymphocytes (%) (Auto) 32 % (24-48) Monocytes (%) (Auto) 26 % (0-9) Eosinophils (%) (Auto) 12 % (0-3) Basophils (%) (Auto) 2 % (0-3) Neutrophils # (Auto) 0.9 x10^3uL (1.8-7.7) Lymphocytes # (Auto) 1.0 x10^3/uL (1.0-4.8) Monocytes # (Auto) 0.8 x10^3/uL (0.0-1.1) Eosinophils # (Auto) 0.4 x10^3/uL (0.0-0.7) Basophils # (Auto) 0.1 x10^3/uL (0.0-0.2) Sodium Level 137 mmol/L (136-145) Potassium Level 4.0 mmol/L (3.5-5.1) Chloride Level 102 mmol/L (98-107) Carbon Dioxide Level 26 mmol/L (21-32) Anion Gap 9 (6-14) Blood Urea Nitrogen 13 mg/dL (8-26) Creatinine 0.9 mg/dL (0.7-1.3) Estimated GFR (Cockcroft-Gault) 85.2 Glucose Level 101 mg/dL (70-99) Calcium Level 8.4 mg/dL (8.5-10.1) Procalcitonin 0.34 ng/mL (0.00-0.10) Test 10/14/18 11:00 10/14/18 11:05 10/14/18 16:14 10/14/18 18:40 Clostridium difficile Toxin B Gene Negative (Negative) Glucose (Fingerstick) 112 mg/dL (70-99) 174 mg/dL (70-99) Vancomycin Level Trough 20.2 mcg/mL (10.0-20.0) Vancomycin Last Dose Date 10/14/18 Vancomycin Last Dose Time 0500 Test 10/14/18 20:48 10/15/18 07:51 10/15/18 10:20 10/15/18 11:02 Glucose (Fingerstick) 132 mg/dL (70-99) 122 mg/dL (70-99) 132 mg/dL (70-99) White Blood Count 5.6 x10^3/uL (4.0-11.0) Red Blood Count 2.72 x10^6/uL (4.30-5.70) Hemoglobin 7.7 g/dL (13.0-17.5) Hematocrit 24.9 % (39.0-53.0) Mean Corpuscular Volume 91 fL (79-100) Mean Corpuscular Hemoglobin 28 pg (25-35) Mean Corpuscular Hemoglobin Concent 31 g/dL (31-37) Red Cell Distribution Width 19.5 % (11.5-14.5) Platelet Count 345 x10^3/uL (140-400) Neutrophils (%) (Auto) 50 % (31-73) Lymphocytes (%) (Auto) 16 % (24-48) Monocytes (%) (Auto) 23 % (0-9) Eosinophils (%) (Auto) 10 % (0-3) Basophils (%) (Auto) 1 % (0-3) Neutrophils # (Auto) 2.8 x10^3uL (1.8-7.7) Lymphocytes # (Auto) 0.9 x10^3/uL (1.0-4.8) Monocytes # (Auto) 1.3 x10^3/uL (0.0-1.1) Eosinophils # (Auto) 0.5 x10^3/uL (0.0-0.7) Basophils # (Auto) 0.0 x10^3/uL (0.0-0.2) Reticulocyte Count (auto) 1.4 % (0.5-2.5) Sodium Level 138 mmol/L (136-145) Potassium Level 3.9 mmol/L (3.5-5.1) Chloride Level 105 mmol/L (98-107) Carbon Dioxide Level 21 mmol/L (21-32) Anion Gap 12 (6-14) Blood Urea Nitrogen 8 mg/dL (8-26) Creatinine 1.0 mg/dL (0.7-1.3) Estimated GFR (Cockcroft-Gault) 75.5 Glucose Level 140 mg/dL (70-99) Lactic Acid Level 2.5 mmol/L (0.4-2.0) Calcium Level 9.1 mg/dL (8.5-10.1) Laboratory Tests Test 10/14/18 16:14 10/14/18 18:40 10/14/18 20:48 10/15/18 07:51 Glucose (Fingerstick) 174 mg/dL (70-99) 132 mg/dL (70-99) 122 mg/dL (70-99) Vancomycin Level Trough 20.2 mcg/mL (10.0-20.0) Vancomycin Last Dose Date 10/14/18 Vancomycin Last Dose Time 0500 Test 10/15/18 10:20 10/15/18 11:02 White Blood Count 5.6 x10^3/uL (4.0-11.0) Red Blood Count 2.72 x10^6/uL (4.30-5.70) Hemoglobin 7.7 g/dL (13.0-17.5) Hematocrit 24.9 % (39.0-53.0) Mean Corpuscular Volume 91 fL (79-100) Mean Corpuscular Hemoglobin 28 pg (25-35) Mean Corpuscular Hemoglobin Concent 31 g/dL (31-37) Red Cell Distribution Width 19.5 % (11.5-14.5) Platelet Count 345 x10^3/uL (140-400) Neutrophils (%) (Auto) 50 % (31-73) Lymphocytes (%) (Auto) 16 % (24-48) Monocytes (%) (Auto) 23 % (0-9) Eosinophils (%) (Auto) 10 % (0-3) Basophils (%) (Auto) 1 % (0-3) Neutrophils # (Auto) 2.8 x10^3uL (1.8-7.7) Lymphocytes # (Auto) 0.9 x10^3/uL (1.0-4.8) Monocytes # (Auto) 1.3 x10^3/uL (0.0-1.1) Eosinophils # (Auto) 0.5 x10^3/uL (0.0-0.7) Basophils # (Auto) 0.0 x10^3/uL (0.0-0.2) Reticulocyte Count (auto) 1.4 % (0.5-2.5) Sodium Level 138 mmol/L (136-145) Potassium Level 3.9 mmol/L (3.5-5.1) Chloride Level 105 mmol/L (98-107) Carbon Dioxide Level 21 mmol/L (21-32) Anion Gap 12 (6-14) Blood Urea Nitrogen 8 mg/dL (8-26) Creatinine 1.0 mg/dL (0.7-1.3) Estimated GFR (Cockcroft-Gault) 75.5 Glucose Level 140 mg/dL (70-99) Lactic Acid Level 2.5 mmol/L (0.4-2.0) Calcium Level 9.1 mg/dL (8.5-10.1) Glucose (Fingerstick) 132 mg/dL (70-99) Microbiology 10/13/18 Blood Culture - Preliminary, Resulted NO GROWTH AFTER 2 DAYS Medications Current Medications Acetaminophen (Tylenol) 650 mg 1X ONCE PO Last administered on 10/13/18at 01:57 ; Start 10/13/18 at 01:30; Stop 10/13/18 at 01:31; Status DC Sodium Chloride 1,000 ml @ 1,000 mls/hr 1X ONCE IV Last administered on at 01:58; Start 10/13/18 at 01:30; Stop 10/13/18 at 02:29; Status DC Levofloxacin/ Dextrose (Levaquin Per Pharmacy) 1 each PRN DAILY PRN MC SEE COMMENTS; Start 10/13/18 at 02:00; Stop 10/13/18 at 15:42; Status DC Levofloxacin/ Dextrose 150 ml @ 100 mls/hr 1X ONCE IV Last administered on at 02:56; Start 10/13/18 at 02:00; Stop 10/13/18 at 03:29; Status DC Vancomycin HCl (Vanco Per Pharmacy) 1 each PRN DAILY PRN MC SEE COMMENTS Last administered on 10/14/18at 19:53; Start 10/13/18 at 05:00; Stop 10/15/18 at 13:08 ; Status DC Vancomycin HCl 2 gm/Sodium Chloride 500 ml @ 250 mls/hr 1X ONCE IV Last administered on 10/13/18at 05:37; Start 10/13/18 at 02:45; Stop 10/13/18 at 04:44 ; Status DC Piperacillin Sod/ Tazobactam Sod (Zosyn Per Pharmacy) 1 each PRN DAILY PRN MC SEE COMMENTS; Start 10/13/18 at 03:30; Stop 10/13/18 at 15:42; Status DC Piperacillin Sod/ Tazobactam Sod 3.375 gm/Sodium Chloride 50 ml @ 100 mls/hr 1X ONCE IV Last administered on 10/13/18at 05:15; Start 10/13/18 at 04:00; Stop 10/13/18 at 04:29; Status DC Morphine Sulfate (Morphine Sulfate) 4 mg PRN Q2HR PRN IV PAIN; Start 10/13/18 at 04:00; Stop 10/14/18 at 03:59; Status DC Sodium Chloride 1,000 ml @ 100 mls/hr Q10H IV Last administered on 10/14/18at 02:50; Start 10/13/18 at 04:00; Stop 10/14/18 at 03:59; Status DC Acetaminophen (Tylenol) 650 mg PRN Q4HRS PRN PO FEVER; Start 10/13/18 at 04:00 ; Stop 10/14/18 at 03:59; Status DC Acetaminophen/ Hydrocodone Bitart (Lortab 10/325) 1 tab 1X ONCE PO Last administered on 10/13/18at 04:27; Start 10/13/18 at 04:30; Stop 10/13/18 at 04:41 ; Status DC Levofloxacin/ Dextrose 150 ml @ 100 mls/hr Q24H IV Last administered on at 05:04; Start 10/14/18 at 05:00; Stop 10/15/18 at 13:02; Status DC Piperacillin Sod/ Tazobactam Sod 3.375 gm/Sodium Chloride 50 ml @ 100 mls/hr Q6HRS IV Last administered on 10/13/18at 11:50; Start 10/13/18 at 12:00; Stop at 15:41; Status DC Dextrose (Dextrose 50%-Water Syringe) 12.5 gm PRN Q15MIN PRN IV SEE COMMENTS; Start 10/13/18 at 05:15 Vancomycin HCl 1.5 gm/Sodium Chloride 500 ml @ 250 mls/hr Q12H IV ; Start 10/13 at 17:30; Status Cancel Vancomycin HCl (Vancomycin Trough Level) 1 each 1X ONCE MC ; Start 10/14/18 at 17:00; Stop 10/14/18 at 17:00; Status DC Lactobacillus Rhamnosus (Culturelle) 1 cap BID PO Last administered on 09:45; Start 10/13/18 at 09:00; Stop 10/13/18 at 15:41; Status DC Amlodipine Besylate (Norvasc) 5 mg DAILY PO Last administered on 10/15/18 09: 03; Start 10/13/18 at 11:00 Atenolol (Tenormin) 50 mg DAILY PO Last administered on 10/15/18 09:04; Start 10/13/18 at 11:00 Atorvastatin Calcium (Lipitor) 10 mg DAILY PO Last administered on 10/15/18 09 :03; Start 10/13/18 at 11:00 Ergocalciferol (Vitamin D2) 50,000 unit WEEKLY PO ; Start 10/20/18 at 09:00 Folic Acid (Folic Acid) 1 mg DAILY PO Last administered on 10/15/18 09:03; Start 10/13/18 at 11:00 Albuterol/ Ipratropium (Duoneb) 3 ml RTQID NEB Last administered on 10/15/18 12:06; Start 10/13/18 at 12:00 Lisinopril (Prinivil) 40 mg DAILY PO Last administered on 10/15/18 09:03; Start 10/13/18 at 11:00 Oxycodone/ Acetaminophen (Percocet 10/325) 1 tab PRN Q6HRS PRN PO PAIN Last administered on 10/15/18 13:03; Start 10/13/18 at 10:15 Pantoprazole Sodium (Protonix) 40 mg DAILYAC PO Last administered on 10/15/18 06:29; Start 10/14/18 at 07:30 Multi-Ingredient Mouthwash/Gargle (Magic Mouthwash) 10 ml PRN QID PRN PO MOUTH PAIN; Start 10/13/18 at 11:00 Valacyclovir HCl (Valtrex) 1,000 mg BID PO Last administered on 10/15/18 09:02 ; Start 10/13/18 at 21:00 Piperacillin Sod/ Tazobactam Sod 4.5 gm/Sodium Chloride 100 ml @ 200 mls/hr Q6HRS IV Last administered on 10/15/18 11:41; Start 10/13/18 at 18:00; Stop at 13:01; Status DC Vancomycin HCl 1.25 gm/Sodium Chloride 250 ml @ 167 mls/hr Q8H IV Last administered on 10/14/18at 08:52; Start 10/13/18 at 17:00; Stop 10/14/18 at 19:22 ; Status DC Vancomycin HCl (Vancomycin Trough Level) 1 each 1X ONCE MC Last administered on 10/14/18at 16:30; Start 10/14/18 at 16:30; Stop 10/14/18 at 16:31; Status DC Acetaminophen (Tylenol) 650 mg 1X ONCE PO Last administered on 10/14/18at 14:09 ; Start 10/14/18 at 14:00; Stop 10/14/18 at 14:01; Status DC Tbo-Filgrastim (Granix) 480 mcg QHS SQ Last administered on 10/14/18at 20:07; Start 10/14/18 at 21:00 Vancomycin HCl 1 gm/Sodium Chloride 250 ml @ 250 mls/hr Q8H IV Last administered on 10/15/18at 03:58; Start 10/14/18 at 20:00; Stop 10/15/18 at 13:01 ; Status DC Levofloxacin (Levaquin) 750 mg DAILY06 PO ; Start 10/16/18 at 06:00 Active Scripts Active Duoneb 0.5-3(2.5) Mg/3 Ml (Albuterol/Ipratropium) 3 Ml Ampul.neb 3 Ml NEB RTQID 30 Days Reported Percocet 10-325 Mg Tablet (Oxycodone/Acetaminophen) 1 Each Tablet 1 Tab PO PRN Q6HRS PRN Folic Acid 1 Mg Tablet 1 Tab PO DAILY Atenolol 50 Mg Tablet 1 Tab PO DAILY Omeprazole 20 Mg Tablet.dr 1 Tab PO DAILY Atorvastatin Calcium 10 Mg Tablet 1 Tab PO DAILY Amlodipine Besylate 5 Mg Tablet 5 Mg PO DAILY Lisinopril 40 Mg Tablet 1 Tab PO DAILY Vitamin D2 (Ergocalciferol (Vitamin D2)) 50,000 Unit Capsule 1 Cap PO WEEKLY Vitals/I & O Vital Sign - Last 24 Hours 10/14/18 10/14/18 10/14/18 10/14/18 14:54 15:00 15:10 15:39 Temp 99.7 99.7 99.0 99.7 99.7 99.0 Pulse 96 96 92 Resp 20 20 20 B/P (MAP) 97/46 97/46 (63) 104/53 Pulse Ox 96 O2 Delivery Nasal Cannula Nasal Cannula O2 Flow Rate 2.0 2.0 10/14/18 10/14/18 10/14/18 10/14/18 15:54 16:52 17:33 18:34 Temp 99.1 99.2 97.7 97.9 99.1 99.2 97.7 97.9 Pulse 95 85 88 87 Resp 20 20 20 20 B/P (MAP) 103/52 103/55 110/53 118/59 (78) Pulse Ox 93 O2 Delivery Room Air 10/14/18 10/14/18 10/14/18 10/14/18 20:00 21:14 22:32 23:00 Temp 99.2 99.2 Pulse 104 Resp 16 18 B/P (MAP) 106/56 (73) Pulse Ox 99 97 O2 Delivery Nasal Cannula Nasal Cannula Nasal Cannula Room Air O2 Flow Rate 1.5 2.0 10/14/18 10/15/18 10/15/18 10/15/18 23:35 03:00 06:29 07:00 Temp 98.8 99.0 98.8 99.0 Pulse 91 106 Resp 18 18 18 B/P (MAP) 102/46 (64) 100/49 (66) Pulse Ox 97 99 99 94 O2 Delivery Nasal Cannula Room Air Nasal Cannula Nasal Cannula O2 Flow Rate 1.5 2.0 10/15/18 10/15/18 10/15/18 10/15/18 07:29 08:00 08:59 09:03 Pulse 106 Resp 14 B/P (MAP) 100/49 Pulse Ox 99 O2 Delivery Nasal Cannula Nasal Cannula O2 Flow Rate 1.5 1.5 3.0 10/15/18 10/15/18 10/15/18 10/15/18 09:03 09:04 10:38 12:06 Temp 97.9 97.9 Pulse 106 106 97 Resp 18 B/P (MAP) 100/49 100/49 106/55 (72) Pulse Ox 99 96 O2 Delivery Nasal Cannula Nasal Cannula O2 Flow Rate 2.0 3.0 10/15/18 13:03 Resp 14 O2 Delivery Nasal Cannula O2 Flow Rate 1.5 Intake and Output 10/14/18 10/14/18 10/15/18 15:00 23:00 07:00 Intake Total 928 ml 1180 ml 600 ml Balance 928 ml 1180 ml 600 ml ANDERSON MANCILLA MD Oct 15, 2018 13:21
[2018-10-15 14:50] VITALS: BP 102/51
[2018-10-15 19:00] VITALS: BP 104/56
[2018-10-15] MEDS: TBO-FILGRASTIM 480 MCG/0.8 ML SYRINGE. SQ SCH (21:05)
[2018-10-15 23:00] VITALS: BP 106/46
[2018-10-16 03:00] VITALS: BP 121/55
[2018-10-16] MEDS: PANTOPRAZOLE 40 MG TABLET.DR. PO SCH (05:50)
[2018-10-16 06:49] VITALS: BP 127/59
[2018-10-16] MEDS: ATENOLOL 50 MG TABLET. PO SCH (08:42)
[2018-10-16] MEDS: amLODIPine BESYLATE 5 MG TABLET PO SCH (08:42)
[2018-10-16] MEDS: ATORVASTATIN CALCIUM 10 MG TABLET. PO SCH (08:43)
[2018-10-16] MEDS: valACYclovir 500 MG TABLET. PO SCH (08:43)
[2018-10-16] MEDS: FOLIC ACID 1 MG TABLET. PO SCH (08:44)
[2018-10-16] MEDS: LISINOPRIL 20 MG TABLET PO SCH (08:44)
[2018-10-16] MEDS: oxyCODONE/APAP 10/325 1 TAB TABLET PO PRN (08:46)
[2018-10-16] MEDS: IPRATRPIUM/ALBUTEROL 0.5/2.5MG 3 ML NEBU. NEB SCH ×2 (08:49→12:02)
[2018-10-16] MEDS ORDERED: VALA500T PO (09:08)
[2018-10-16] MEDS ORDERED: LEVO750T31 PO (09:08)
--- NOTE | 2018-10-16 09:20 | PDOC ---
Infectious Disease Note Subjective: Subjective pt feels better today no f/c sob and cough are improving sores in m outh are improving ROS: ROS Negative except for above. Vital Signs: Vital Signs Vital Signs Date Time Temp Pulse Resp B/P (MAP) Pulse Ox O2 Delivery O2 Flow Rate FiO2 10/16/18 08:52 100 Nasal Cannula 3.0 10/16/18 08:46 18 10/16/18 08:44 100 127/59 10/16/18 06:49 98.1 98.1 Physical Exam: PHYSICAL EXAM GENERAL: The patient is propped up in bed, alert, in no apparent distress. HEENT: Pupils equally round, reactive. Normal conjunctivae. Oral cavity: Pharynx pink and moist, edentulous, a small ulceration left lower gum line. NECK: Supple. LUNGS: Diminished aeration. Nonlabored. HEART: S1, S2. ABDOMEN: Obese, soft and nontender with bowel sounds present. EXTREMITIES: No gross edema or cyanosis. SKIN: Warm without generalized rash. NEUROLOGIC: Alert and oriented x 3. Peripheral IV looks okay. Medications: Inpatient Meds: Current Medications Medications (Trade) Dose Ordered Sig/Katherine Start Time Stop Time Status Last Admin Dose Admin Acetaminophen (Tylenol) 650 mg 1X ONCE 10/14/18 14:00 10/14/18 14:01 DC 10/14/18 14:09 650 MG Acetaminophen/ Hydrocodone Bitart (Lortab 10/325) 1 tab 1X ONCE 10/13/18 04:30 10/13/18 04:41 DC 10/13/18 04:27 1 TAB Albuterol/ Ipratropium (Duoneb) 3 ml RTQID 10/13/18 12:00 10/16/18 08:49 3 ML Amlodipine Besylate (Norvasc) 5 mg DAILY 10/13/18 11:00 10/16/18 08:42 5 MG Atenolol (Tenormin) 50 mg DAILY 10/13/18 11:00 10/16/18 08:42 50 MG Atorvastatin Calcium (Lipitor) 10 mg DAILY 10/13/18 11:00 10/16/18 08:43 10 MG Dextrose (Dextrose 50%-Water Syringe) 12.5 gm PRN Q15MIN PRN 10/13/18 05:15 Ergocalciferol (Vitamin D2) 50,000 unit WEEKLY 10/20/18 09:00 Folic Acid (Folic Acid) 1 mg DAILY 10/13/18 11:00 10/16/18 08:44 1 MG Lactobacillus Rhamnosus (Culturelle) 1 cap BID 10/13/18 09:00 10/13/18 15:41 DC 10/13/18 09:45 1 CAP Levofloxacin (Levaquin) 750 mg DAILY06 10/16/18 06:00 10/16/18 05:50 750 MG Levofloxacin/ Dextrose 150 ml @ 100 mls/hr Q24H 10/14/18 05:00 10/15/18 13:02 DC 10/15/18 05:04 100 MLS/HR Levofloxacin/ Dextrose (Levaquin Per Pharmacy) 1 each PRN DAILY PRN 10/13/18 02:00 10/13/18 15:42 DC Lisinopril (Prinivil) 40 mg DAILY 10/13/18 11:00 10/16/18 08:44 40 MG Morphine Sulfate (Morphine Sulfate) 4 mg PRN Q2HR PRN 10/13/18 04:00 10/14/18 03:59 DC Multi-Ingredient Mouthwash/Gargle (Magic Mouthwash) 10 ml PRN QID PRN 10/13/18 11:00 10/16/18 08:45 10 ML Oxycodone/ Acetaminophen (Percocet 10/325) 1 tab PRN Q6HRS PRN 10/13/18 10:15 10/16/18 08:46 1 TAB Pantoprazole Sodium (Protonix) 40 mg DAILYAC 10/14/18 07:30 10/16/18 05:50 40 MG Piperacillin Sod/ Tazobactam Sod (Zosyn Per Pharmacy) 1 each PRN DAILY PRN 10/13/18 03:30 10/13/18 15:42 DC Piperacillin Sod/ Tazobactam Sod 3.375 gm/Sodium Chloride 50 ml @ 100 mls/hr Q6HRS 10/13/18 12:00 10/13/18 15:41 DC 10/13/18 11:50 100 MLS/HR Piperacillin Sod/ Tazobactam Sod 4.5 gm/Sodium Chloride 100 ml @ 200 mls/hr Q6HRS 10/13/18 18:00 10/15/18 13:01 DC 10/15/18 11:41 200 MLS/HR Sodium Chloride 1,000 ml @ 100 mls/hr Q10H 10/13/18 04:00 10/14/18 03:59 DC 10/14/18 02:50 100 MLS/HR Tbo-Filgrastim (Granix) 480 mcg QHS 10/14/18 21:00 10/15/18 21:05 480 MCG Valacyclovir HCl (Valtrex) 1,000 mg BID 10/13/18 21:00 10/16/18 08:43 1,000 MG Vancomycin HCl (Vanco Per Pharmacy) 1 each PRN DAILY PRN 10/13/18 05:00 10/15/18 13:08 DC 10/14/18 19:53 1 EACH Vancomycin HCl (Vancomycin Trough Level) 1 each 1X ONCE 10/14/18 16:30 10/14/18 16:31 DC 10/14/18 16:30 1 EACH Vancomycin HCl 1.25 gm/Sodium Chloride 250 ml @ 167 mls/hr Q8H 10/13/18 17:00 10/14/18 19:22 DC 10/14/18 08:52 167 MLS/HR Vancomycin HCl 1.5 gm/Sodium Chloride 500 ml @ 250 mls/hr Q12H 10/13/18 17:30 Cancel Vancomycin HCl 1 gm/Sodium Chloride 250 ml @ 250 mls/hr Q8H 10/14/18 20:00 10/15/18 13:01 DC 10/15/18 03:58 250 MLS/HR Vancomycin HCl 2 gm/Sodium Chloride 500 ml @ 250 mls/hr 1X ONCE 10/13/18 02:45 10/13/18 04:44 DC 10/13/18 05:37 250 MLS/HR Labs: Lab Laboratory Tests Test 10/15/18 10:20 10/15/18 11:02 10/15/18 15:54 10/15/18 20:23 White Blood Count 5.6 x10^3/uL (4.0-11.0) Red Blood Count 2.72 x10^6/uL (4.30-5.70) Hemoglobin 7.7 g/dL (13.0-17.5) Hematocrit 24.9 % (39.0-53.0) Mean Corpuscular Volume 91 fL (79-100) Mean Corpuscular Hemoglobin 28 pg (25-35) Mean Corpuscular Hemoglobin Concent 31 g/dL (31-37) Red Cell Distribution Width 19.5 % (11.5-14.5) Platelet Count 345 x10^3/uL (140-400) Neutrophils (%) (Auto) 50 % (31-73) Lymphocytes (%) (Auto) 16 % (24-48) Monocytes (%) (Auto) 23 % (0-9) Eosinophils (%) (Auto) 10 % (0-3) Basophils (%) (Auto) 1 % (0-3) Neutrophils # (Auto) 2.8 x10^3uL (1.8-7.7) Lymphocytes # (Auto) 0.9 x10^3/uL (1.0-4.8) Monocytes # (Auto) 1.3 x10^3/uL (0.0-1.1) Eosinophils # (Auto) 0.5 x10^3/uL (0.0-0.7) Basophils # (Auto) 0.0 x10^3/uL (0.0-0.2) Reticulocyte Count (auto) 1.4 % (0.5-2.5) Sodium Level 138 mmol/L (136-145) Potassium Level 3.9 mmol/L (3.5-5.1) Chloride Level 105 mmol/L (98-107) Carbon Dioxide Level 21 mmol/L (21-32) Anion Gap 12 (6-14) Blood Urea Nitrogen 8 mg/dL (8-26) Creatinine 1.0 mg/dL (0.7-1.3) Estimated GFR (Cockcroft-Gault) 75.5 Glucose Level 140 mg/dL (70-99) Lactic Acid Level 2.5 mmol/L (0.4-2.0) Calcium Level 9.1 mg/dL (8.5-10.1) Glucose (Fingerstick) 132 mg/dL (70-99) 134 mg/dL (70-99) 124 mg/dL (70-99) Test 10/16/18 06:08 Glucose (Fingerstick) 107 mg/dL (70-99) Micro RUN DATE: 10/14/18 PAGE 1 RUN TIME: 236 [facility] [address] [place] [address] Augie Sosa M.D., Telecommunications Support PATIENT: ANDERSON REYES ACCT: [id number] LOC: [address] [place] [address] U : [id number] AGE/SX: 63/M ROOM: [facility] REG : 10/13/[address]: Mayela IQBAL MD : 1955 BED: 1 DIS : STATUS: ADM IN TLOC: SPEC #: [id number] LAILA: 10/13/18 STATUS: RES REQ #: [id number] RECD: 10/13/[address]: NUNU ALMENDAREZ MD SOURCE: BLOOD ENTR: 10/13/18-0122 [facility] DR: ANDERSON MANCILLA MD [facility] ORDERED: BCULT Procedure Result BLOOD CULTURE Preliminary NO GROWTH AFTER 1 DAY Objective: Assessment: 1. Healthcare-acquired pneumonia.improving, bc neg, sputum c/s neg 2. Immunosuppression. 3. Oral ulcers. 4. Stage 4 non-small cell lung cancer, undergoing palliative chemotherapy. 5. Diabetes mellitus. 6. Hypertension. 7. Diarrhea C diff neg 10/14 Plan: Plan of Care cont Carmelo ,jonny given Probiotics cont Valtrex ok to ms home from id standpoint DEVON MOON MD Oct 16, 2018 09:20
[2018-10-16 11:00] VITALS: BP 125/67
--- NOTE | 2018-10-16 13:19 | DISCH ---
DISCHARGE WITH HOME HEALTH DISCHARGE INFORMATION: Final Diagnosis: Problems Medical Problems: (1) Pneumonia Status: Acute Condition on Discharge: Stable CODE STATUS: Code Status: Full HOME HEALTH: Face to Face: I certify this patient is under my care and that I, or a nurse practitioner or physician's retail sales assistant working with me, had a face to face encounter that meets the physician face to face encounter requirements with this patient on []. Medical Complications: COPD Physical Therapy For: Evalulation/Treatment Occupational Therapy For: Evaluation/Treatment POST DISCHARGE ORDERS: Activity Instructions for Disc: Activity as tolerated Weight Bearing Status after Di: As tolerated DIET AFTER DISCHARGE: Regular FOLLOW-UP: Follow up with: PCP Follow Up With: Dr. Garcia TREATMENT/EQUIPMENT ORDERS: Adaptive Equipment Issued: None CERTIFICATION STATEMENT: Certification Statement: Certification Statement: Based on the above finding, I certify that this patient is confined to the home and needs intermittent residential care, physical therapy and/or speech therapy, or continues to need occupational therapy.~ This patient is under my care, and I have initiated the establishment of the plan of care.~ This patient will be followed by myself or a community physician who will periodically review the plan of care. Home Meds Active Scripts Valacyclovir Hcl (VALACYCLOVIR) 500 Mg Tablet, 1000 MG PO BID for stomatitis for 7 Days, #28 TAB Prov:ANDERSON MANCILLA MD 10/16/18 Levofloxacin (LEVAQUIN) 750 Mg Tablet, 750 MG PO DAILY06 for hap for 7 Days, #7 TAB Prov:ANDERSON MANCILLA MD 10/16/18 Ipratropium/Albuterol Sulfate (DUONEB 0.5-3(2.5) MG/3 ML) 3 Ml Ampul.neb, 3 ML NEB RTQID for 30 Days, #120 EACH 3 Refills Prov:ANDERSON MANCILLA MD 02/13/18 Reported Medications Oxycodone/Apap 10-325 (PERCOCET 10-325 MG TABLET ) 1 Each Tablet, 1 TAB PO PRN Q6HRS PRN for PAIN, TAB 0 Refills 10/13/18 Folic Acid (FOLIC ACID) 1 Mg Tablet, 1 TAB PO DAILY for SUPPLEMENT, #90 TAB 1 Refill 10/13/18 Atenolol (ATENOLOL) 50 Mg Tablet, 1 TAB PO DAILY 02/08/18 Omeprazole (OMEPRAZOLE) 20 Mg Tablet.dr, 1 TAB PO DAILY 02/08/18 Atorvastatin Calcium (ATORVASTATIN CALCIUM) 10 Mg Tablet, 1 TAB PO DAILY 02/08/18 Amlodipine Besylate (AMLODIPINE BESYLATE) 5 Mg Tablet, 5 MG PO DAILY, TAB 02/08/18 Lisinopril (LISINOPRIL) 40 Mg Tablet, 1 TAB PO DAILY 02/08/18 Ergocalciferol (Vitamin D2) (VITAMIN D2) 50,000 Unit Capsule, 1 CAP PO WEEKLY 02/08/18 Discontinued Reported Medications Oxycodone/Apap 7.5-325 (PERCOCET 7.5-325 MG TABLET ) 1 Each Tablet, 1 TAB PO PRN Q6HRS PRN for PAIN 05/21/18 ANDERSON MANCILLA MD Oct 16, 2018 13:19
--- NOTE | 2018-10-16 18:27 | DS ---
DATE OF DISCHARGE: 10/16/2018 ADMITTING DIAGNOSES: 1. Facility-acquired pneumonia. 2. Neutropenia. 3. Fever. 4. Stage 4 lung cancer on chemotherapy. 5. Type 2 diabetes. 6. Stage 3 kidney disease. 7. Hypertension. HISTORY OF PRESENT ILLNESS AND HOSPITAL COURSE: This patient is a 63-year-old male with known stage IV lung cancer, receiving chemotherapy, last chemotherapy on 10/04/2018, began having fever, came to the hospital with weakness and oral ulcers. He was found to have a likely left perihilar infiltrate with pleural effusion. He was treated with IV antibiotics and Infectious Disease was consulted for hospital-acquired pneumonias. He was improved throughout hospital stay to the point where he was able to ambulate with a walker and tolerate room air. Therefore, plans for discharge to home were made. He will follow up with Dr. Rick Swan for chemotherapy and with Pulmonary Medicine for ongoing lung cancer. DISCHARGE MEDICATIONS: He was discharged on the following medications: Levaquin 750 mg daily for 1 week, valacyclovir 500 mg b.i.d. for 7 days, amlodipine 5 mg daily, atenolol 50 mg daily, atorvastatin 10 mg daily, vitamin D 50,000 international units weekly, folic acid 1 mg daily, DuoNeb nebulizer treatments q.6h., lisinopril 40 mg daily, omeprazole 20 mg daily, Percocet 10 q.6h. p.r.n. ANDERSON MANCILLA MD DR: LIDIA/[place] JOB#: [id number] / [id number]
[2018-10-20] MEDS ORDERED: ERGOCALCIFEROL (VITAMIN D2) 50,000 UNIT CAPSULE. PO SCH (09:00)
== END 2018-10-16 14:44 | disposition home health service (06) | DRG 871 ==
LOC: ER 00:31 → 5 NORTH 03:35
PROVIDERS: ADMIT Family Medicine; ATTEND Family Medicine
PROC: 30233N1 Transfusion of Nonautologous Red Blood Cells into Peripheral Vein, Percutaneous Approach (ICD-10-PCS; principal; 2018-10-14)
DX: A41.9 Sepsis, unspecified organism (principal); J18.9 Pneumonia, unspecified organism; J44.0 Chronic obstructive pulmonary disease with (acute) lower respiratory infection; C34.90 Malignant neoplasm of unspecified part of unspecified bronchus or lung; J90 Pleural effusion, not elsewhere classified; I12.9 Hypertensive chronic kidney disease with stage 1 through stage 4 chronic kidney disease, or unspecified chronic kidney disease; N18.3 Chronic kidney disease, stage 3 (moderate); E66.9 Obesity, unspecified; D64.9 Anemia, unspecified; D70.1 Agranulocytosis secondary to cancer chemotherapy; E11.22 Type 2 diabetes mellitus with diabetic chronic kidney disease; E11.42 Type 2 diabetes mellitus with diabetic polyneuropathy; E78.5 Hyperlipidemia, unspecified; F41.1 Generalized anxiety disorder; K12.1 Other forms of stomatitis; Y95 Nosocomial condition; M17.0 Bilateral primary osteoarthritis of knee; R50.81 Fever presenting with conditions classified elsewhere; T45.1X5A Adverse effect of antineoplastic and immunosuppressive drugs, initial encounter; Y92.89 Other specified places as the place of occurrence of the external cause; Z80.0 Family history of malignant neoplasm of digestive organs; Z79.899 Other long term (current) drug therapy; Z82.49 Family history of ischemic heart disease and other diseases of the circulatory system; Z68.29 Body mass index [BMI] 29.0-29.9, adult; Z82.5 Family history of asthma and other chronic lower respiratory diseases; Z83.3 Family history of diabetes mellitus; Z85.118 Personal history of other malignant neoplasm of bronchus and lung; Z87.891 Personal history of nicotine dependence; Z99.81 Dependence on supplemental oxygen; Z88.5 Allergy status to narcotic agent; Z84.1 Family history of disorders of kidney and ureter; Z80.9 Family history of malignant neoplasm, unspecified; R19.7 Diarrhea, unspecified
CPT/HCPCS: 36415; 71045; 80048; 80053; 80202; 82962; 83605; 83880; 84145; 84484; 85007; 85025; 85045; 85610; 86850; 86900; 86901; 86920; 87040; 87493; 87804; 93005; 94618; 94640; 94760; 96361; 96365; 96366; J1442; J1956; J2543; J3370; J7030; J7040; J7050; J7620; P9016; 99285-25

== ENCOUNTER → 2018-11-07 | Outpatient (CLI) | payer OTHER ==
[2018-10-16 11:00] VITALS: BP 125/67
[~2018-11-07] MED LIST changes: +ASPI-630 PO; +FLUT9.9S NS; +FOLI1TAB16 PO; +LEVO750T31 PO; +OXYC1TAB22 PO; +VALA500T PO
--- NOTE | 2018-11-07 12:58 | RAD ---
FDG tumor localization scan, PET/CT, 11/07/2018: History: Restaging lung cancer Following IV injection of 14 mCi of 18 F-FDG, imaging was performed from the skull base to the proximal thighs. The noncontrast CT component was performed for attenuation correction and anatomic localization purposes rather than for primary diagnosis. The patient's blood glucose level at the time of injection was 135 MG/DL. Comparison is made to a study from 09/05/2018. There is extensive hypermetabolic pleural thickening throughout the left chest with underlying patchy hypermetabolic infiltrates. There is hypermetabolic adenopathy in the lower neck, mediastinum and epicardial regions. Some of these lesions have improved slightly. For example a right paratracheal lymph node which previously measured 2.9 cm and demonstrated a maximum SUV of 10.1, now now measures 2.0 cm with a maximum SUV of 6.9. Several other lesions have also improved slightly. There are also hypermetabolic lesions which have worsened slightly. For example a hypermetabolic nodule in the epicardial fat in the anterior aspect of the right lower chest which measured 3.9 x 1.7 cm on the previous study now measures 3.9 x 2.0 cm. Its maximum SUV has increased from 8.0 to 12.5. There is hypermetabolic retroperitoneal adenopathy in the abdomen. Some of these nodes have worsened slightly. For example there is a 17 mm hypermetabolic node along the left side of the aortic bifurcation which measured 12 mm on the previous study. Several new tiny hypermetabolic nodes are noted in the upper pelvis. Left supraclavicular hypermetabolic adenopathy appears similar to that seen on the previous study. No new neck abnormality is evident. Normal GI tract and urinary tract neck tibia is identified. No hypermetabolic liver lesion is seen. IMPRESSION: Ongoing extensive metastatic disease with a mixed response to therapy as described above. Some of the chest lesions have improved while there has been slight worsening of several other lesions, particularly in the abdomen. The improving lesions do predominate over the worsening lesions.
== END | disposition home or self-care (01) ==
LOC: PETSC 09:44
PROVIDERS: ATTEND Internal Medicine Hematology & Oncology
DX: C34.82 Malignant neoplasm of overlapping sites of left bronchus and lung (principal); R91.8 Other nonspecific abnormal finding of lung field; R59.9 Enlarged lymph nodes, unspecified; Z87.891 Personal history of nicotine dependence
CPT/HCPCS: 78815; A9552

== ENCOUNTER 2018-11-15 09:37 | Inpatient (IN) | payer OTHER ==
[~2018-11-15] VITALS: Ht 182.9 cm; Wt 102.8 kg
[~2018-11-15 09:37] MED LIST changes: -ASPI-630 PO; -FLUT9.9S NS
--- NOTE | 2018-11-15 10:09 | PHYS DOC ---
Past Medical History Past Medical History: Cancer (STAGE IV LUNG CX), Diabetes-Type II, Hypertension, Seizure Past Surgical History: Other Additional Past Surgical Histo: abscess I&D, wrist fusion,Fluid removed from lung 01/2018,Feb.had lung bx. Alcohol Use: Rarely Drug Use: Marijuana Adult General Chief Complaint Chief Complaint: ABNORMAL LABS HPI HPI Patient is a 63 year old male with history of stage IV lung cancer presenting to the emergency department with acute renal failure transfer from Dr. laird office. Also noted to be in hyperkalemia. He reports feeling mildly tired but denies any pain. He denies fevers chills cough headache nausea vomiting. Cancer hx from Dr. Laird last note: "He was started on palliative chemotherapy with carboplatin, pemetrexed and Keytruda on 06/11/2018. After 4 cycles of treatment, PET scan on 09/05/2018 revealed worsening pleural thickening in the left chest and worsening lymphadenopathy. Hence, he was started on Taxotere on 09/13/2018. He received cycle #2 on 10/04/2018. " Review of systems is negative for chest pain shortness of breath fevers chills nausea vomiting. All other review of systems is negative unless otherwise noted in history of present illness. ED course: 63-year-old male presenting with new onset renal failure. Blood work shows her potassium level to be within normal limits here. Creatinine is significantly elevated. We will admit the patient for acute renal failure. I spoke with Dr. scott who accepts patient for admission. Review of Systems Review of Systems SEE ABOVE. Current Medications Current Medications Current Medications Medications (Trade) Dose Ordered Sig/[facility] Start Time Stop Time Status Last Admin Dose Admin Morphine Sulfate (Morphine Sulfate) 2 mg PRN Q2HR PRN 11/15/18 12:15 11/16/18 12:14 Ondansetron HCl (Zofran) 4 mg PRN Q8HRS PRN 11/15/18 12:15 11/16/18 12:14 Sodium Chloride 1,000 ml @ 100 mls/hr Q10H 11/15/18 12:05 11/15/18 22:04 Allergies Allergies Allergies Coded Allergies Type Severity Reaction Last Updated Verified codeine Allergy Severe makes face swell 05/01/18 Yes Physical Exam Physical Exam SEE ABOVE Constitutional: Well developed, well nourished, no acute distress, non-toxic appearance. HENT: Normocephalic, atraumatic, bilateral external ears normal, oropharynx moist, no oral exudates, nose normal. [] Eyes: PERRLA, EOMI, conjunctiva normal, no discharge. Neck: Normal range of motion, no tenderness, supple, no stridor. [] Cardiovascular:Heart rate regular rhythm, no murmur [] Lungs & Thorax: Bilateral breath sounds clear to auscultation Abdomen: Bowel sounds normal, soft, no tenderness, no masses, no pulsatile masses. [] Skin: Warm, dry, no erythema, no rash. Back: No tenderness, no CVA tenderness. [] Extremities: No tenderness, no cyanosis, no clubbing, ROM intact, no edema. Neurologic: Alert and oriented X 3, normal motor function, normal sensory function, no focal deficits noted. [] Psychologic: Affect normal, judgement normal, mood normal. [] Current Patient Data Vital Signs Vital Signs Date Time Temp Pulse Resp B/P (MAP) Pulse Ox O2 Delivery O2 Flow Rate FiO2 11/15/18 11:15 80 16 149/68 (95) 98 Room Air 11/15/18 10:16 97.4 98.0 97.4 Lab Values Laboratory Tests Test 11/15/18 11:20 White Blood Count 14.4 x10^3/uL (4.0-11.0) H Red Blood Count 2.94 x10^6/uL (4.30-5.70) L Hemoglobin 8.1 g/dL (13.0-17.5) L Hematocrit 25.7 % (39.0-53.0) L Mean Corpuscular Volume 88 fL (79-100) Mean Corpuscular Hemoglobin 28 pg (25-35) Mean Corpuscular Hemoglobin Concent 32 g/dL (31-37) Red Cell Distribution Width 19.2 % (11.5-14.5) H Platelet Count 626 x10^3/uL (140-400) H Neutrophils (%) (Auto) 80 % (31-73) H Lymphocytes (%) (Auto) 12 % (24-48) L Monocytes (%) (Auto) 8 % (0-9) Eosinophils (%) (Auto) 0 % (0-3) Basophils (%) (Auto) 0 % (0-3) Neutrophils # (Auto) 11.5 x10^3uL (1.8-7.7) H Lymphocytes # (Auto) 1.7 x10^3/uL (1.0-4.8) Monocytes # (Auto) 1.2 x10^3/uL (0.0-1.1) H Eosinophils # (Auto) 0.0 x10^3/uL (0.0-0.7) Basophils # (Auto) 0.0 x10^3/uL (0.0-0.2) Sodium Level 130 mmol/L (136-145) L Potassium Level 4.8 mmol/L (3.5-5.1) Chloride Level 97 mmol/L (98-107) L Carbon Dioxide Level 21 mmol/L (21-32) Anion Gap 12 (6-14) Blood Urea Nitrogen 67 mg/dL (8-26) H Creatinine 5.7 mg/dL (0.7-1.3) H Estimated GFR (Cockcroft-Gault) 10.1 Glucose Level 177 mg/dL (70-99) H Calcium Level 8.9 mg/dL (8.5-10.1) Total Bilirubin 0.2 mg/dL (0.2-1.0) Direct Bilirubin 0.1 mg/dL (0.0-0.2) Aspartate Amino Transferase (AST) 35 U/L (15-37) Alanine Aminotransferase (ALT) 7 U/L (16-63) L Alkaline Phosphatase 92 U/L (46-116) Troponin I Quantitative < 0.017 ng/mL (0.000-0.055) Total Protein 6.4 g/dL (6.4-8.2) Albumin 1.7 g/dL (3.4-5.0) L Lipase 53 U/L (73-393) L Laboratory Tests 11/15/18 11:20 Laboratory Tests 11/15/18 11:20 EKG EKG [] Radiology/Procedures Radiology/Procedures [] Course & Med Decision Making Course & Med Decision Making Pertinent Labs and Imaging studies reviewed. (See chart for details) [] Dragon Disclaimer Dragon Disclaimer This electronic medical record was generated, in whole or in part, using a voice recognition dictation system. Departure Departure Impression: Primary Impression: Acute renal failure Disposition: ADMITTED INPATIENT Admitting Physician: Anderson Cintron Condition: STABLE Referrals: ANDERSON CINTRON MD (PCP) PATRICA WHEATLEY MD Nov 15, 2018 10:09
[2018-11-15 11:35] LABS: BASO % 0 % (0-3); EOS % 0 % (0-3); HEMATOCRIT 25.7 % (39.0-53.0); HEMOGLOBIN 8.1 g/dL (13.0-17.5); LYMPH # 1.7 x10^3/uL (1.0-4.8); LYMPH % 12 % (24-48); MEAN CORPUSCULAR HEMOGLOBIN 28 pg (25-35); MEAN CORPUSCULAR HGB CONC 32 g/dL (31-37); MEAN CORPUSCULAR VOLUME 88 fL (79-100); MONO # 1.2 x10^3/uL (0.0-1.1); MONO % 8 % (0-9); NEUT # 11.5 x10^3uL (1.8-7.7); NEUT % 80 % (31-73); PLATELET COUNT 626 x10^3/uL (140-400); RED BLOOD COUNT 2.94 x10^6/uL (4.30-5.70); RED CELL DISTRIBUTION WIDTH 19.2 % (11.5-14.5); WHITE BLOOD COUNT 14.4 x10^3/uL (4.0-11.0)
[2018-11-15 11:44] LABS: CALCIUM 8.9 mg/dL (8.5-10.1); CREATININE 5.7 mg/dL (0.7-1.3); GFR 10.1; POTASSIUM 4.8 mmol/L (3.5-5.1)
[2018-11-15 11:59] LABS: ALBUMIN 1.7 g/dL (3.4-5.0); DIRECT BILIRUBIN 0.1 mg/dL (0.0-0.2); TOTAL BILIRUBIN 0.2 mg/dL (0.2-1.0); TOTAL PROTEIN 6.4 g/dL (6.4-8.2)
[2018-11-15] MEDS ORDERED: IV NORMAL SALINE 1000ML BAG 1,000 ML IV SCH (12:05)
[2018-11-15] MEDS ORDERED: MORPHINE SULFATE 2 MG/ML VIAL. IV PRN (12:15)
[2018-11-15] MEDS ORDERED: ONDANSETRON PF 4 MG/2 ML VIAL. IV PRN (12:15)
[2018-11-15] MEDS ORDERED: METF10007 PO (14:56)
[2018-11-15] MEDS ORDERED: FLUT9.9S NS (14:56)
[2018-11-15] MEDS ORDERED: ASPI-630 PO (14:56)
[2018-11-15 15:00] VITALS: BP 112/70
[2018-11-15] MEDS: IPRATRPIUM/ALBUTEROL 0.5/2.5MG 3 ML NEBU. NEB SCH ×2 (16:07→19:50)
[2018-11-15] MEDS: oxyCODONE/APAP 10/325 1 TAB TABLET PO PRN (16:21)
[2018-11-15] MEDS: HEPARIN for SUB-Q USE 5,000 UNIT/ML VIAL. SQ SCH ×2 (16:24→23:06)
[2018-11-15 19:05] VITALS: BP 134/69
[2018-11-15] MEDS: ATORVASTATIN CALCIUM 10 MG TABLET. PO SCH (20:51)
[2018-11-15 23:05] VITALS: BP 122/61
[2018-11-16 03:05] VITALS: BP 132/72
[2018-11-16 07:05] VITALS: BP 112/89
--- NOTE | 2018-11-16 07:15 | CONS ---
DATE OF CONSULTATION: 11/15/2018 REQUESTING PHYSICIAN: Dr. Louis Cintron. REASON FOR CONSULTATION: Stage 4 lung cancer, on chemotherapy, admitted with acute renal failure. HISTORY OF PRESENT ILLNESS: The patient is a 63-year-old gentleman who was diagnosed with poorly differentiated carcinoma favoring adenocarcinoma with pleural effusion and mediastinal lymphadenopathy, T4 N2 M1a stage 4 in 2018. He underwent a left open biopsy of the pleura on 05/01/2018 and the pathology confirmed adenocarcinoma. PET scan on 05/16/2018 revealed extensive hypermetabolic left pleural malignancy extending towards the epicardial fat. A 2 cm subpectoral lymph node was hypermetabolic. There was evidence of subcarinal lymphadenopathy and internal mammary and anterior epicardial nodes. There was also evidence of retrocrural and upper abdominal retroperitoneal lymphadenopathy. He was started on palliative chemotherapy with carboplatin, pemetrexed and Keytruda on 06/11/2018. He underwent cycle #4 on 08/15/2018 and then it was discontinued because of worsening pleural thickening in the left chest and the mediastinal lymph nodes and abdominal lymph nodes. He was started on chemotherapy with docetaxel on 09/13/2018. He received cycle #3 on 10/25/2018. PET scan on 11/07/2018 revealed there was mixed response to treatment. Improving lesions predominate over worsening lesions indicating an overall response to therapy. Cycle #4 was planned for 11/15/2018. However, the prechemotherapy labs performed on 11/14/2018 revealed acute renal failure with a creatinine of 5.17 and potassium of 6.0 and a BUN of 60. His prior labs on 10/24/2018 had revealed a creatinine of 1.12 with a BUN of 17. Hence, he was admitted to the hospital for further evaluation. He reports fatigue and generalized weakness. His mentions that the patient has had confusion for about a week, but the patient denies that. PAST MEDICAL HISTORY: Seizures, hypertension, diabetes, hyperlipidemia, generalized anxiety disorder, osteoarthritis, peripheral neuropathy. FAMILY HISTORY: Positive for diabetes, hypertension, cancer and heart disease. His son of aneurysm. SOCIAL HISTORY: He has a history of smoking 2-1/2 packs a day for 30 years that he quit in 2010. REVIEW OF SYSTEMS: A 12-point review of system was performed. Pertinent positives are mentioned in the history of present illness. Rest of the system review is negative. PHYSICAL EXAMINATION: GENERAL APPEARANCE: The patient is a 63-year-old gentleman who is in no acute cardiorespiratory distress. VITAL SIGNS: Blood pressure 110/57, temperature 97.4, heart rate 72, respiratory rate 16. HEENT: Atraumatic, normocephalic. Eyes: No icterus. NECK: Supple. CHEST: Bilaterally symmetrical. HEART: S1, S2 normal. ABDOMEN: Soft, nontender. CENTRAL NERVOUS SYSTEM: No focal deficits. LYMPHATICS: No lymphadenopathy. SKIN: No rashes. PSYCHOLOGIC: Mood and affect are appropriate. LABORATORY DATA: From 11/15/2018: WBC 14.4, hemoglobin 8.1, platelet count 626, creatinine 5.7, BUN 67, potassium 4.8, albumin 1.7. IMPRESSION AND PLAN: 1. 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 EGFR, ROS1, BRAF, PD-L1, ALK are all negative. He received chemotherapy with pemetrexed, carboplatin and Keytruda from 06/11/2018 and he received fourth cycle on 08/15/2018 and subsequently discontinued due to disease progression. Docetaxel chemotherapy was initiated on 09/13/2018 and he received cycle #3 on 10/25/2018. PET scan on 11/07/2018 revealed overall mixed response with improving lesions predominating the worsening lesions. Further chemotherapy will be deferred because of acute renal failure. I have advised him to follow up with me upon discharge for further management of lung cancer and chemotherapy. 2. Acute renal failure. Creatinine was normal at 1.12 on 10/24/2018. Creatinine is 5.7 on 11/15/2018. I agree to consult Nephrology for further evaluation and management. 3. Anemia due to malignancy. Hemoglobin is worse. Continue to monitor. 4. Thrombocytosis due to malignancy. 5. Pedal edema due to hypoalbuminemia and renal failure. Consult Nephrology. I discussed in detail with the patient and his . MYNOR MILLER MD DR: USMAN/[place] JOB#: [id number] / [id number]
[2018-11-16] MEDS: IPRATRPIUM/ALBUTEROL 0.5/2.5MG 3 ML NEBU. NEB SCH (07:47)
[2018-11-16] MEDS: ATENOLOL 50 MG TABLET. PO SCH (08:16)
[2018-11-16] MEDS: amLODIPine BESYLATE 5 MG TABLET PO SCH (08:16)
[2018-11-16] MEDS: PANTOPRAZOLE 40 MG TABLET.DR. PO SCH (08:17)
[2018-11-16] MEDS: FOLIC ACID 1 MG TABLET. PO SCH (08:17)
[2018-11-16] MEDS: HEPARIN for SUB-Q USE 5,000 UNIT/ML VIAL. SQ SCH ×2 (08:25→21:17)
--- NOTE | 2018-11-16 08:37 | RAD ---
RENAL COMPLETE BILATERAL History: Acute renal failure, lung cancer Comparison: None. Findings: Multiple sonographic images of the kidneys and retroperitoneal structures are submitted. Reportedly exam was limited due to patient positioning and inability to suspend respiration and also reportedly due to patient pain during exam. Right kidney measured 11.8 x 7.4 x 6.2 cm. Left kidney measured 13.1 x 5.7 x 5.9 cm. Renal parenchyma appears more heterogeneous on the left. There is no hydronephrosis of either kidney. Abdominal aortic caliber is within normal limits proximally at 2.6 cm although otherwise not well visualized due to bowel gas. There is segmental visualization of the inferior vena cava. Right renal resistive index 0.74, left 0.75. Ureteral jets are seen bilaterally in the urinary bladder lumen. Impression: 1. There is no hydronephrosis of either kidney. There is nonspecific heterogeneity of the renal parenchyma greater on the left. Electronically signed by: Shai Rothman MD (11/16/2018 8:34 AM) [facility]
[2018-11-16 08:56] LABS: BASO % 0 % (0-3); EOS % 0 % (0-3); HEMATOCRIT 24.8 % (39.0-53.0); HEMOGLOBIN 7.9 g/dL (13.0-17.5); LYMPH # 1.5 x10^3/uL (1.0-4.8); LYMPH % 10 % (24-48); MEAN CORPUSCULAR HEMOGLOBIN 28 pg (25-35); MEAN CORPUSCULAR HGB CONC 32 g/dL (31-37); MEAN CORPUSCULAR VOLUME 87 fL (79-100); MONO # 1.4 x10^3/uL (0.0-1.1); MONO % 10 % (0-9); NEUT # 11.6 x10^3uL (1.8-7.7); NEUT % 80 % (31-73); PLATELET COUNT 610 x10^3/uL (140-400); RED BLOOD COUNT 2.86 x10^6/uL (4.30-5.70); RED CELL DISTRIBUTION WIDTH 19.3 % (11.5-14.5); WHITE BLOOD COUNT 14.5 x10^3/uL (4.0-11.0)
[2018-11-16] MEDS ORDERED: ERGOCALCIFEROL (VITAMIN D2) 50,000 UNIT CAPSULE. PO SCH (09:00)
[2018-11-16 09:14] LABS: CALCIUM 8.3 mg/dL (8.5-10.1); CREATININE 5.5 mg/dL (0.7-1.3); GFR 10.6
[2018-11-16 11:05] VITALS: BP 96/48
[2018-11-16] MEDS: IV NORMAL SALINE 1000ML BAG 1,000 ML IV SCH ×2 (11:25→21:21)
[2018-11-16] MEDS: oxyCODONE/APAP 10/325 1 TAB TABLET PO PRN ×2 (11:25→20:02)
[2018-11-16] MEDS: DOCUSATE SODIUM 100 MG CAPSULE. PO SCH ×2 (11:25→20:01)
[2018-11-16] MEDS ORDERED: DEXTROSE 50% 25 GM / 50ML DISP.SYRIN. IV PRN (11:30)
--- NOTE | 2018-11-16 11:32 | PDOC ---
PROGRESS NOTES Subjective Subjective Patient without complaint, reports he is confused and uncooperative. Objective Objective Vital Signs Date Time Temp Pulse Resp B/P (MAP) Pulse Ox O2 Delivery O2 Flow Rate FiO2 11/16/18 11:25 98 Room Air 2.0 11/16/18 08:16 108 112/89 11/16/18 07:05 98.7 20 98.7 Intake and Output 11/16/18 06:59 Intake Total 700 ml Output Total 200 ml Balance 500 ml Intake Oral 700 ml Output Urine Total 200 ml Physical Exam Abdomen: Normal bowel sounds, Soft, No tenderness Heart: Regular rate Extremities: Other (mild edema bilateral LE's, L>R) General: Alert, No acute distress Lungs: Other (BS decreased throughout but otherwise CTA) Assessment Assessment Problems Medical Problems: (1) Acute renal failure Status: Acute Plan Plan of Care 1. Acute renal failure - sent for admission from Dr Swan's office yesterday. Given some IVF overnight but lab not improved. Will resume IVF now. Renal consult pending, renal u/s unremarkable. Some metabolic encephalopathy present, should improve as renal function improves. Last brain MRI on chart showed no metastatic lesions. 2. metastatic lung cancer - was receiving chemotx, presently on hold. 3. HTN - hold Lisinopril and continue his other home medications. 4. DM2 - Metformin on hold, SS as needed. 5. COPD - stable, continue nebs as needed. 6. OA with chronic knee pain - Percocet as needed, patient takes this at home. 7. anemia - chronic, presently stable. Comment Review of Relevant I have reviewed the following items vanessa (where applicable) has been applied. Labs Laboratory Tests Test 11/15/18 11:20 11/15/18 16:58 11/15/18 20:48 11/16/18 07:23 White Blood Count 14.4 x10^3/uL (4.0-11.0) Red Blood Count 2.94 x10^6/uL (4.30-5.70) Hemoglobin 8.1 g/dL (13.0-17.5) Hematocrit 25.7 % (39.0-53.0) Mean Corpuscular Volume 88 fL (79-100) Mean Corpuscular Hemoglobin 28 pg (25-35) Mean Corpuscular Hemoglobin Concent 32 g/dL (31-37) Red Cell Distribution Width 19.2 % (11.5-14.5) Platelet Count 626 x10^3/uL (140-400) Neutrophils (%) (Auto) 80 % (31-73) Lymphocytes (%) (Auto) 12 % (24-48) Monocytes (%) (Auto) 8 % (0-9) Eosinophils (%) (Auto) 0 % (0-3) Basophils (%) (Auto) 0 % (0-3) Neutrophils # (Auto) 11.5 x10^3uL (1.8-7.7) Lymphocytes # (Auto) 1.7 x10^3/uL (1.0-4.8) Monocytes # (Auto) 1.2 x10^3/uL (0.0-1.1) Eosinophils # (Auto) 0.0 x10^3/uL (0.0-0.7) Basophils # (Auto) 0.0 x10^3/uL (0.0-0.2) Sodium Level 130 mmol/L (136-145) Potassium Level 4.8 mmol/L (3.5-5.1) Chloride Level 97 mmol/L (98-107) Carbon Dioxide Level 21 mmol/L (21-32) Anion Gap 12 (6-14) Blood Urea Nitrogen 67 mg/dL (8-26) Creatinine 5.7 mg/dL (0.7-1.3) Estimated GFR (Cockcroft-Gault) 10.1 Glucose Level 177 mg/dL (70-99) Calcium Level 8.9 mg/dL (8.5-10.1) Total Bilirubin 0.2 mg/dL (0.2-1.0) Direct Bilirubin 0.1 mg/dL (0.0-0.2) Aspartate Amino Transf (AST/SGOT) 35 U/L (15-37) Alanine Aminotransferase (ALT/SGPT) 7 U/L (16-63) Alkaline Phosphatase 92 U/L (46-116) Troponin I Quantitative < 0.017 ng/mL (0.000-0.055) Total Protein 6.4 g/dL (6.4-8.2) Albumin 1.7 g/dL (3.4-5.0) Lipase 53 U/L (73-393) Glucose (Fingerstick) 181 mg/dL (70-99) 177 mg/dL (70-99) 136 mg/dL (70-99) Test 11/16/18 08:35 11/16/18 11:16 White Blood Count 14.5 x10^3/uL (4.0-11.0) Red Blood Count 2.86 x10^6/uL (4.30-5.70) Hemoglobin 7.9 g/dL (13.0-17.5) Hematocrit 24.8 % (39.0-53.0) Mean Corpuscular Volume 87 fL (79-100) Mean Corpuscular Hemoglobin 28 pg (25-35) Mean Corpuscular Hemoglobin Concent 32 g/dL (31-37) Red Cell Distribution Width 19.3 % (11.5-14.5) Platelet Count 610 x10^3/uL (140-400) Neutrophils (%) (Auto) 80 % (31-73) Lymphocytes (%) (Auto) 10 % (24-48) Monocytes (%) (Auto) 10 % (0-9) Eosinophils (%) (Auto) 0 % (0-3) Basophils (%) (Auto) 0 % (0-3) Neutrophils # (Auto) 11.6 x10^3uL (1.8-7.7) Lymphocytes # (Auto) 1.5 x10^3/uL (1.0-4.8) Monocytes # (Auto) 1.4 x10^3/uL (0.0-1.1) Eosinophils # (Auto) 0.0 x10^3/uL (0.0-0.7) Basophils # (Auto) 0.0 x10^3/uL (0.0-0.2) Sodium Level 134 mmol/L (136-145) Potassium Level 5.0 mmol/L (3.5-5.1) Chloride Level 98 mmol/L (98-107) Carbon Dioxide Level 22 mmol/L (21-32) Anion Gap 14 (6-14) Blood Urea Nitrogen 68 mg/dL (8-26) Creatinine 5.5 mg/dL (0.7-1.3) Estimated GFR (Cockcroft-Gault) 10.6 Glucose Level 150 mg/dL (70-99) Calcium Level 8.3 mg/dL (8.5-10.1) Glucose (Fingerstick) 178 mg/dL (70-99) Laboratory Tests Test 11/15/18 16:58 11/15/18 20:48 11/16/18 07:23 11/16/18 08:35 Glucose (Fingerstick) 181 mg/dL (70-99) 177 mg/dL (70-99) 136 mg/dL (70-99) White Blood Count 14.5 x10^3/uL (4.0-11.0) Red Blood Count 2.86 x10^6/uL (4.30-5.70) Hemoglobin 7.9 g/dL (13.0-17.5) Hematocrit 24.8 % (39.0-53.0) Mean Corpuscular Volume 87 fL (79-100) Mean Corpuscular Hemoglobin 28 pg (25-35) Mean Corpuscular Hemoglobin Concent 32 g/dL (31-37) Red Cell Distribution Width 19.3 % (11.5-14.5) Platelet Count 610 x10^3/uL (140-400) Neutrophils (%) (Auto) 80 % (31-73) Lymphocytes (%) (Auto) 10 % (24-48) Monocytes (%) (Auto) 10 % (0-9) Eosinophils (%) (Auto) 0 % (0-3) Basophils (%) (Auto) 0 % (0-3) Neutrophils # (Auto) 11.6 x10^3uL (1.8-7.7) Lymphocytes # (Auto) 1.5 x10^3/uL (1.0-4.8) Monocytes # (Auto) 1.4 x10^3/uL (0.0-1.1) Eosinophils # (Auto) 0.0 x10^3/uL (0.0-0.7) Basophils # (Auto) 0.0 x10^3/uL (0.0-0.2) Sodium Level 134 mmol/L (136-145) Potassium Level 5.0 mmol/L (3.5-5.1) Chloride Level 98 mmol/L (98-107) Carbon Dioxide Level 22 mmol/L (21-32) Anion Gap 14 (6-14) Blood Urea Nitrogen 68 mg/dL (8-26) Creatinine 5.5 mg/dL (0.7-1.3) Estimated GFR (Cockcroft-Gault) 10.6 Glucose Level 150 mg/dL (70-99) Calcium Level 8.3 mg/dL (8.5-10.1) Test 11/16/18 11:16 Glucose (Fingerstick) 178 mg/dL (70-99) Medications Current Medications Ondansetron HCl (Zofran) 4 mg PRN Q8HRS PRN IV NAUSEA/VOMITING Last administered on 11/15/18 12:26; Start 11/15/18 at 12:15; Stop 11/16/18 at 12:14 Morphine Sulfate (Morphine Sulfate) 2 mg PRN Q2HR PRN IV PAIN Last administered on 11/15/18 12:26; Start 11/15/18 at 12:15; Stop 11/16/18 at 12:14 Sodium Chloride 1,000 ml @ 100 mls/hr Q10H IV Last administered on 11/15/18 12:25; Start 11/15/18 at 12:05; Stop 11/15/18 at 22:04; Status DC Heparin Sodium (Porcine) (Heparin Sodium) 5,000 unit Q12HR SQ Last administered on 11/16/18 08:25; Start 11/15/18 at 15:00 Amlodipine Besylate (Norvasc) 5 mg DAILY PO Last administered on 11/16/18 08:16; Start 11/16/18 at 09:00 Atenolol (Tenormin) 50 mg DAILY PO Last administered on 11/16/18 08:16; Start 11/16/18 at 09:00 Atorvastatin Calcium (Lipitor) 10 mg QHS PO Last administered on 11/15/18 20:51; Start 11/15/18 at 21:00 Ergocalciferol (Vitamin D2) 50,000 unit WEEKLY PO Last administered on 11/16/18 08:15; Start 11/16/18 at 09:00 Folic Acid (Folic Acid) 1 mg DAILY PO Last administered on 11/16/18 08:17; Start 11/16/18 at 09:00 Albuterol/ Ipratropium (Duoneb) 3 ml RTQID NEB Last administered on 11/16/18 07:47; Start 11/15/18 at 16:00 Oxycodone/ Acetaminophen (Percocet 10/325) 1 tab PRN Q6HRS PRN PO PAIN Last administered on 11/16/18at 11:25; Start 11/15/18 at 15:00 Pantoprazole Sodium (Protonix) 40 mg DAILYAC PO Last administered on 11/16/18at 08:17; Start 11/16/18 at 07:30 Sodium Chloride 1,000 ml @ 100 mls/hr Q10H IV Last administered on 11/16/18at 11:25; Start 11/16/18 at 11:15 Docusate Sodium (Colace) 100 mg BID PO Last administered on 11/16/18at 11:25; Start 11/16/18 at 11:15 Insulin Human Lispro (HumaLOG) 0-5 UNITS TIDWMEALS SQ ; Start 11/16/18 at 12:00 Dextrose (Dextrose 50%-Water Syringe) 12.5 gm PRN Q15MIN PRN IV SEE COMMENTS; Start 11/16/18 at 11:30 Active Scripts Active Duoneb 0.5-3(2.5) Mg/3 Ml (Albuterol/Ipratropium) 3 Ml Ampul.neb 3 Ml NEB RTQID 30 Days Reported Metformin Hcl 1,000 Mg Tablet 1,000 Mg PO BIDWMEALS Flonase Allergy Relief (Fluticasone Propionate) 9.9 Ml [place].susp 2 Sprays NS DAILY Aspirin 81 Mg Tab.chew 1 Tab PO DAILY Percocet 10-325 Mg Tablet (Oxycodone/Acetaminophen) 1 Each Tablet 1 Tab PO PRN Q6HRS PRN Folic Acid 1 Mg Tablet 1 Tab PO DAILY Atenolol 50 Mg Tablet 1 Tab PO DAILY Omeprazole 20 Mg Tablet.dr 1 Tab PO DAILY Atorvastatin Calcium 10 Mg Tablet 1 Tab PO DAILY Amlodipine Besylate 5 Mg Tablet 5 Mg PO DAILY Lisinopril 40 Mg Tablet 1 Tab PO DAILY Vitamin D2 (Ergocalciferol (Vitamin D2)) 50,000 Unit Capsule 1 Cap PO WEEKLY Vitals/I & O Vital Sign - Last 24 Hours 11/15/18 11/15/18 11/15/18 11/15/18 12:15 12:26 13:15 14:31 Pulse 76 72 Resp 17 16 16 B/P (MAP) 99/58 (72) 110/57 (74) Pulse Ox 97 95 96 O2 Delivery Room Air Room Air Room Air Room Air 11/15/18 11/15/18 11/15/18 11/15/18 15:00 16:09 19:05 19:51 Temp 97.4 97.6 97.4 97.6 Pulse 77 79 Resp 16 16 B/P (MAP) 112/70 (84) 134/69 (90) Pulse Ox 98 99 99 98 O2 Delivery Room Air Room Air Room Air Room Air 11/15/18 11/15/18 11/16/18 11/16/18 20:00 23:05 03:05 07:05 Temp 97.5 99.7 98.7 97.5 99.7 98.7 Pulse 87 115 108 Resp 16 16 20 B/P (MAP) 122/61 (81) 132/72 (92) 112/89 (97) Pulse Ox 98 100 99 O2 Delivery Room Air Room Air Nasal Cannula Room Air O2 Flow Rate 98.0 2.0 11/16/18 11/16/18 11/16/18 11/16/18 07:48 08:00 08:16 08:16 Pulse 108 108 B/P (MAP) 112/89 112/89 Pulse Ox 98 O2 Delivery Room Air Room Air 11/16/18 11:25 Pulse Ox 98 O2 Delivery Room Air O2 Flow Rate 2.0 Intake and Output 11/15/18 11/15/18 11/16/18 14:59 22:59 06:59 Intake Total 200 ml 500 ml Output Total 200 ml Balance 200 ml 300 ml ANASTACIA ARSHAD MD Nov 16, 2018 11:32
[2018-11-16] MEDS: INSULIN LISPRO 300 UNITS/3 ML INSULN.PEN. SQ SCH ×2 (11:37→17:00)
--- NOTE | 2018-11-16 11:58 | HP ---
ADMIT DATE: 11/15/2018 CHIEF COMPLAINT: Acute renal failure. HISTORY OF PRESENT ILLNESS: The patient is a 63-year-old male with stage 4 adenocarcinoma of the lung. He was at Dr. Swan's office to receive chemotherapy for treatment of this when lab done there showed his creatinine to be over 5. He was sent to the Emergency Room. Initial evaluation there showed a creatinine of 5.7 with potassium of 4.8. Treatment was started and he was admitted for further care. PAST MEDICAL HISTORY: Stage 4 adenocarcinoma of the lung, diabetes mellitus type 2, hypertension, osteoarthritis, hyperlipidemia, COPD, history of seizure disorder, chronic kidney disease stage 3. PAST SURGICAL HISTORY: Wrist surgery, cyst removal, left thoracentesis, left open biopsy of pleura 05/09. ALLERGIES: The patient has no known drug allergies. HOME MEDICATIONS: DuoNeb p.r.n., amlodipine 5 mg daily, aspirin 81 mg daily, atenolol 50 mg daily, atorvastatin 10 mg daily, vitamin D 50,000 units weekly, Flonase nose spray daily, folic acid 1 mg daily, lisinopril 40 mg daily, metformin 1000 mg b.i.d., omeprazole 20 mg daily, Percocet 7.5/325 one q.6 hours p.r.n. pain. FAMILY HISTORY: Noncontributory. SOCIAL HISTORY: The patient is and lives at home with his . He has a long smoking history, but quit smoking cigarettes in 2010. He does not drink alcohol to excess. REVIEW OF SYSTEMS: The patient has not had fever or chills. He has not had chest pain or palpitations. He has not had a cough or unusual shortness of breath. He denies abdominal pain, nausea or vomiting. He has some chronic constipation, which his reports he takes Colace twice daily for treatment of this. He has had some lower extremity edema recently. PHYSICAL EXAMINATION: GENERAL: The patient is alert and appears oriented to person and place. He is sitting up in a recliner, in no acute distress. HEENT: PERRL, EOMI, sclerae clear. Oropharynx: Mucous membranes moist. NECK: Supple, without lymphadenopathy. CHEST: Breath sounds mildly decreased throughout, but otherwise clear to auscultation. No wheezes heard. No cough during exam. CARDIOVASCULAR: Regular rhythm without murmur. ABDOMEN: Soft, nontender, normoactive bowel sounds are present. EXTREMITIES: Show mild edema in bilateral lower extremities, left greater than right. ASSESSMENT AND PLAN: 1. Acute renal failure. The patient was given some IV fluids overnight, but the fluids were not continued, so there is no real improvement in his lab. Fluids have been ordered and we will follow his lab. A Renal consult is pending. A renal ultrasound was unremarkable. There is some metabolic encephalopathy present and the patient's is very concerned that he does not seem like himself. This should improve as his renal function improves. His last brain MRI in the chart did not show evidence of metastatic disease. 2. Metastatic lung cancer, chemotherapy presently on hold. 3. Hypertension. Hold lisinopril and continue his other home medications. 4. Diabetes mellitus type 2. Hold metformin and use sliding scale insulin as needed. 5. Chronic obstructive pulmonary disease. This appears stable. Continue nebulized treatments as needed. The patient is not hypoxic on room air. 6. Osteoarthritis with chronic knee pain. Continue Percocet as needed. The patient does take this at home. 7. Anemia. This is chronic. Continue to follow labs. ANASTACIA ARSHAD MD DR: SULMA/[place] JOB#: [id number] / [id number] NEVIN
[2018-11-16] MEDS ORDERED: MAGNESIUM SULFATE 2GM 50 ML IV PRN (12:00)
--- NOTE | 2018-11-16 12:19 | PDOC2 ---
CONSULT Date of Consult Date of Consult DATE: 11/16/18 TIME: 12:08 Reason for Consult Reason for Consult: Acute renal failure Referring Physician Referring Physician: Dr. Cintron/ Dr. Diaz Identification/Chief Complaint Chief Complaint Abnormal labs Source Source: Caregiver, Patient History of Present Illness Reason for Visit: Patient is a pleasant 63-year-old Afro-[place] gentleman with the poorly differentiated lung cancer who has been treated with [place] based chemotherapy in the past. This finished in the late July early August. For reasons as reviewed in Dr. Swan's note he was transitioned to DoceTaxel thereafter is now status post about 3-4 cycles of the same. Cycle #4 was planned for 11/15/2018. However, the prechemotherapy labs performed on 11/14/2018 revealed acute renal failure with a creatinine of 5.17 and potassium of 6.0 and a BUN of 60. His prior labs on10/24/2018 had revealed a creatinine of 1.12 with a BUN of 17. Hence, he wasadmitted to the hospital for further evaluation and we were consulted for the same. He was noted to have an elevated potassium level also which has since resolved. He denies any difficulty urinating. He denies fevers chills nausea vomiting diarrhea per se. He does notice some edema in his lower extremities. It should be noted that his PET scan done about a week ago was done without IV contrast on the CT part as documented in the report. His labs however does show an albumin of only 1.7. A urine specimen is not available for review at this time. Renal sonogram was revealed no obvious obstructive pathology. He did receive some IV fluids but creatinine has not changed much. He claims he is feeling good and he wants to go home however his tells me that he is more irritable and is not himself. She is concerned that if we take him home she would not be able to care for him. We did discuss dialysis in his current state. She would like to avoid it at this time at least. She is open to considering it if no further improvements are noted over the next 48 hours Past Medical History Cardiovascular: HTN, Hyperlipidemia Pulmonary: COPD, Other CENTRAL NERVOUS SYSTEM: Seizure Heme/Onc: Cancer Rheumatologic: Other Renal/: Chronic renal insuff Endocrine: Diabetes Past Surgical History Past Surgical History: Other Family History Family History: Cancer, Diabetes, Heart Disease, Hypertension, Kidney Disease (son developed kidney failure in his early 20s and was on dialysis for 5 years) Social History ALCOHOL: occassional Lives: with Family Current Problem List Problem List Problems Medical Problems: (1) Acute renal failure Status: Acute Current Medications Current Medications Current Medications Ondansetron HCl (Zofran) 4 mg PRN Q8HRS PRN IV NAUSEA/VOMITING Last administered on 11/15/18 12:26; Start 11/15/18 at 12:15; Stop 11/16/18 at 12:14 Morphine Sulfate (Morphine Sulfate) 2 mg PRN Q2HR PRN IV PAIN Last administered on 11/15/18 12:26; Start 11/15/18 at 12:15; Stop 11/16/18 at 12:14 Sodium Chloride 1,000 ml @ 100 mls/hr Q10H IV Last administered on 11/15/18 12:25; Start 11/15/18 at 12:05; Stop 11/15/18 at 22:04; Status DC Heparin Sodium (Porcine) (Heparin Sodium) 5,000 unit Q12HR SQ Last administered on 11/16/18 08:25; Start 11/15/18 at 15:00 Amlodipine Besylate (Norvasc) 5 mg DAILY PO Last administered on 11/16/18 08:16; Start 11/16/18 at 09:00 Atenolol (Tenormin) 50 mg DAILY PO Last administered on 11/16/18 08:16; Start 11/16/18 at 09:00 Atorvastatin Calcium (Lipitor) 10 mg QHS PO Last administered on 11/15/18at 20:51; Start 11/15/18 at 21:00 Ergocalciferol (Vitamin D2) 50,000 unit WEEKLY PO Last administered on 11/16/18 08:15; Start 11/16/18 at 09:00 Folic Acid (Folic Acid) 1 mg DAILY PO Last administered on 11/16/18 08:17; Start 11/16/18 at 09:00 Albuterol/ Ipratropium (Duoneb) 3 ml RTQID NEB Last administered on 11/16/18 07:47; Start 11/15/18 at 16:00; Stop 11/16/18 at 11:33; Status DC Oxycodone/ Acetaminophen (Percocet 10/325) 1 tab PRN Q6HRS PRN PO PAIN Last administered on 11/16/18at 11:25; Start 11/15/18 at 15:00 Pantoprazole Sodium (Protonix) 40 mg DAILYAC PO Last administered on 11/16/18at 08:17; Start 11/16/18 at 07:30 Sodium Chloride 1,000 ml @ 100 mls/hr Q10H IV Last administered on 11/16/18at 11:25; Start 11/16/18 at 11:15 Docusate Sodium (Colace) 100 mg BID PO Last administered on 11/16/18at 11:25; Start 11/16/18 at 11:15 Insulin Human Lispro (HumaLOG) 0-5 UNITS TIDWMEALS SQ Last administered on 11/16/18at 11:37; Start 11/16/18 at 12:00 Dextrose (Dextrose 50%-Water Syringe) 12.5 gm PRN Q15MIN PRN IV SEE COMMENTS; Start 11/16/18 at 11:30 Albuterol Sulfate (Ventolin Neb Soln) 2.5 mg PRN Q6HRS PRN NEB SHORTNESS OF BREATH; Start 11/16/18 at 11:45 Magnesium Sulfate 50 ml @ 25 mls/hr PRN DAILY PRN IV for Mag < 1.7 on am labs; Start 11/16/18 at 12:00 Albumin Human 100 ml @ 100 mls/hr TID IV ; Start 11/16/18 at 14:00; Stop 11/18/18 at 09:59 Active Scripts Active Duoneb 0.5-3(2.5) Mg/3 Ml (Albuterol/Ipratropium) 3 Ml Ampul.neb 3 Ml NEB RTQID 30 Days Reported Metformin Hcl 1,000 Mg Tablet 1,000 Mg PO BIDWMEALS Flonase Allergy Relief (Fluticasone Propionate) 9.9 Ml [place].susp 2 Sprays NS DAILY Aspirin 81 Mg Tab.chew 1 Tab PO DAILY Percocet 10-325 Mg Tablet (Oxycodone/Acetaminophen) 1 Each Tablet 1 Tab PO PRN Q6HRS PRN Folic Acid 1 Mg Tablet 1 Tab PO DAILY Atenolol 50 Mg Tablet 1 Tab PO DAILY Omeprazole 20 Mg Tablet.dr 1 Tab PO DAILY Atorvastatin Calcium 10 Mg Tablet 1 Tab PO DAILY Amlodipine Besylate 5 Mg Tablet 5 Mg PO DAILY Lisinopril 40 Mg Tablet 1 Tab PO DAILY Vitamin D2 (Ergocalciferol (Vitamin D2)) 50,000 Unit Capsule 1 Cap PO WEEKLY Allergies Allergies: Coded Allergies: No Known Drug Allergies (Unverified , 11/15/18) ROS Review of System Grossly negative other than confusion as reported by the and edema in his lower extremity is Physical Exam Physical Exam General Appearance: Awake Alert Oriented x 2-3 In no obvious Distress Eyes: VIsion Unchanged Conjunctiva Normal EN: No EN Drainage Mucous Memb. moist Neck: no JVD min JVP Supple no Thyromegaly CVS: S1 S2 soft Murmur No Gallop No Rub +2 Edema Resp: no Rales no Rhonchi no Acc. Muscle use GI: BAS +ve NO Bruit Non Tender Non Distended : no CVA tenderness; no Suprapubic Tenderness SKIN: no Rashes Breast Exam deferred Mu.Sk: Adequate ROM no Muscle Atrophy Heme: Unable to palpate Obvious LAD no palp Splenomegaly NEURO: Good Strength and Tone Cranial Nerves II - XII grossly intact Psych: ? Depressed not Active hallucination Vital Signs Vital Signs Date Time Temp Pulse Resp B/P (MAP) Pulse Ox O2 Delivery O2 Flow Rate FiO2 11/16/18 11:25 98 Room Air 2.0 11/16/18 11:05 99.2 95 20 96/48 (64) 99.2 Assessment & Plan Acute kidney injury: Unclear etiology we'll check UA. Ultrasound is negative for obstructive pathology. Multiple signs and symptoms may be attribute able to renal failure and uremia, he also has a low-grade fever which I will order blood cultures for and may explain his encephalopathy. Will check LDH and uric acid to rule out tumor lysis. This however seems less likely currently. Continue gentle IV fluids as ordered Delirium: Check blood cultures. Unclear if this is uremic. would like to wait 48 hours prior to considering dialysis Anemia: Deferred to Dr. Swan to manage in the setting of active malignancy Edema lower extremity: Suspect due to severe hypoalbuminemia: IV albumin as ordered. Some of this may also be due to fluid retention associated with his most recent chemotherapeutic regimen Marginal hypotension: Reevaluate after IV albumin use Discussed Plan of Care and prognosis etc. at length with family ( at bedside) and Dr. Diaz Labs Labs Laboratory Tests Test 11/15/18 11:20 11/15/18 16:58 11/15/18 20:48 11/16/18 07:23 White Blood Count 14.4 x10^3/uL (4.0-11.0) Red Blood Count 2.94 x10^6/uL (4.30-5.70) Hemoglobin 8.1 g/dL (13.0-17.5) Hematocrit 25.7 % (39.0-53.0) Mean Corpuscular Volume 88 fL (79-100) Mean Corpuscular Hemoglobin 28 pg (25-35) Mean Corpuscular Hemoglobin Concent 32 g/dL (31-37) Red Cell Distribution Width 19.2 % (11.5-14.5) Platelet Count 626 x10^3/uL (140-400) Neutrophils (%) (Auto) 80 % (31-73) Lymphocytes (%) (Auto) 12 % (24-48) Monocytes (%) (Auto) 8 % (0-9) Eosinophils (%) (Auto) 0 % (0-3) Basophils (%) (Auto) 0 % (0-3) Neutrophils # (Auto) 11.5 x10^3uL (1.8-7.7) Lymphocytes # (Auto) 1.7 x10^3/uL (1.0-4.8) Monocytes # (Auto) 1.2 x10^3/uL (0.0-1.1) Eosinophils # (Auto) 0.0 x10^3/uL (0.0-0.7) Basophils # (Auto) 0.0 x10^3/uL (0.0-0.2) Sodium Level 130 mmol/L (136-145) Potassium Level 4.8 mmol/L (3.5-5.1) Chloride Level 97 mmol/L (98-107) Carbon Dioxide Level 21 mmol/L (21-32) Anion Gap 12 (6-14) Blood Urea Nitrogen 67 mg/dL (8-26) Creatinine 5.7 mg/dL (0.7-1.3) Estimated GFR (Cockcroft-Gault) 10.1 Glucose Level 177 mg/dL (70-99) Calcium Level 8.9 mg/dL (8.5-10.1) Total Bilirubin 0.2 mg/dL (0.2-1.0) Direct Bilirubin 0.1 mg/dL (0.0-0.2) Aspartate Amino Transf (AST/SGOT) 35 U/L (15-37) Alanine Aminotransferase (ALT/SGPT) 7 U/L (16-63) Alkaline Phosphatase 92 U/L (46-116) Troponin I Quantitative < 0.017 ng/mL (0.000-0.055) Total Protein 6.4 g/dL (6.4-8.2) Albumin 1.7 g/dL (3.4-5.0) Lipase 53 U/L (73-393) Glucose (Fingerstick) 181 mg/dL (70-99) 177 mg/dL (70-99) 136 mg/dL (70-99) Test 11/16/18 08:35 11/16/18 11:16 White Blood Count 14.5 x10^3/uL (4.0-11.0) Red Blood Count 2.86 x10^6/uL (4.30-5.70) Hemoglobin 7.9 g/dL (13.0-17.5) Hematocrit 24.8 % (39.0-53.0) Mean Corpuscular Volume 87 fL (79-100) Mean Corpuscular Hemoglobin 28 pg (25-35) Mean Corpuscular Hemoglobin Concent 32 g/dL (31-37) Red Cell Distribution Width 19.3 % (11.5-14.5) Platelet Count 610 x10^3/uL (140-400) Neutrophils (%) (Auto) 80 % (31-73) Lymphocytes (%) (Auto) 10 % (24-48) Monocytes (%) (Auto) 10 % (0-9) Eosinophils (%) (Auto) 0 % (0-3) Basophils (%) (Auto) 0 % (0-3) Neutrophils # (Auto) 11.6 x10^3uL (1.8-7.7) Lymphocytes # (Auto) 1.5 x10^3/uL (1.0-4.8) Monocytes # (Auto) 1.4 x10^3/uL (0.0-1.1) Eosinophils # (Auto) 0.0 x10^3/uL (0.0-0.7) Basophils # (Auto) 0.0 x10^3/uL (0.0-0.2) Sodium Level 134 mmol/L (136-145) Potassium Level 5.0 mmol/L (3.5-5.1) Chloride Level 98 mmol/L (98-107) Carbon Dioxide Level 22 mmol/L (21-32) Anion Gap 14 (6-14) Blood Urea Nitrogen 68 mg/dL (8-26) Creatinine 5.5 mg/dL (0.7-1.3) Estimated GFR (Cockcroft-Gault) 10.6 Glucose Level 150 mg/dL (70-99) Calcium Level 8.3 mg/dL (8.5-10.1) Glucose (Fingerstick) 178 mg/dL (70-99) Laboratory Tests Test 11/15/18 16:58 11/15/18 20:48 11/16/18 07:23 11/16/18 08:35 Glucose (Fingerstick) 181 mg/dL (70-99) 177 mg/dL (70-99) 136 mg/dL (70-99) White Blood Count 14.5 x10^3/uL (4.0-11.0) Red Blood Count 2.86 x10^6/uL (4.30-5.70) Hemoglobin 7.9 g/dL (13.0-17.5) Hematocrit 24.8 % (39.0-53.0) Mean Corpuscular Volume 87 fL (79-100) Mean Corpuscular Hemoglobin 28 pg (25-35) Mean Corpuscular Hemoglobin Concent 32 g/dL (31-37) Red Cell Distribution Width 19.3 % (11.5-14.5) Platelet Count 610 x10^3/uL (140-400) Neutrophils (%) (Auto) 80 % (31-73) Lymphocytes (%) (Auto) 10 % (24-48) Monocytes (%) (Auto) 10 % (0-9) Eosinophils (%) (Auto) 0 % (0-3) Basophils (%) (Auto) 0 % (0-3) Neutrophils # (Auto) 11.6 x10^3uL (1.8-7.7) Lymphocytes # (Auto) 1.5 x10^3/uL (1.0-4.8) Monocytes # (Auto) 1.4 x10^3/uL (0.0-1.1) Eosinophils # (Auto) 0.0 x10^3/uL (0.0-0.7) Basophils # (Auto) 0.0 x10^3/uL (0.0-0.2) Sodium Level 134 mmol/L (136-145) Potassium Level 5.0 mmol/L (3.5-5.1) Chloride Level 98 mmol/L (98-107) Carbon Dioxide Level 22 mmol/L (21-32) Anion Gap 14 (6-14) Blood Urea Nitrogen 68 mg/dL (8-26) Creatinine 5.5 mg/dL (0.7-1.3) Estimated GFR (Cockcroft-Gault) 10.6 Glucose Level 150 mg/dL (70-99) Calcium Level 8.3 mg/dL (8.5-10.1) Test 11/16/18 11:16 Glucose (Fingerstick) 178 mg/dL (70-99) Review All relevant outside records, renal labs, imaging studies, telemetry/EKG's were reviewed. Images Images Multiple sonographic images of the kidneys and retroperitoneal structures are submitted. Reportedly exam was limited due to patient positioning and inability to suspend respiration and also reportedly due to patient pain during exam. Right kidney measured 11.8 x 7.4 x 6.2 cm. Left kidney measured 13.1 x 5.7 x 5.9 cm. Renal parenchyma appears more heterogeneous on the left. There is no hydronephrosis of either kidney. Abdominal aortic caliber is within normal limits proximally at 2.6 cm although otherwise not well visualized due to bowel gas. There is segmental visualization of the inferior vena cava. Right renal resistive index 0.74, left 0.75. Ureteral jets are seen bilaterally in the urinary bladder lumen. Impression: 1. There is no hydronephrosis of either kidney. There is nonspecific heterogeneity of the renal parenchyma greater on the left. DEXTER MOON MD Nov 16, 2018 12:19
[2018-11-16 12:30] LABS: URIC ACID 11.4 mg/dL (3.5-7.2)
[2018-11-16] MEDS: ALBUMIN HUMAN 25% 100 ML IV SCH ×2 (13:55→20:00)
[2018-11-16 14:10] LABS: BILIRUBIN,URINE NEGATIVE (NEG); CLARITY,URINE CLEAR; COLOR,URINE YELLOW; NITRITE,URINE NEGATIVE (NEG); PH,URINE 5.5; PROTEIN,URINE >=300 mg/dL (NEG-TRACE); UROBILINOGEN,URINE 0.2 mg/dL (0.2 mg/dL)
[2018-11-16 14:22] LABS: SQUAMOUS EPITHELIAL CELL,UR MOD /LPF; WAXY CASTS,URINE MODERATE /HPF
[2018-11-16 14:25] LABS: HYALINE CASTS, URINE FEW /HPF
[2018-11-16 14:35] LABS: BACTERIA,URINE 0 /HPF (0-FEW)
[2018-11-16 14:52] LABS: CREATININE,RANDOM URINE 78.7 mg/dL (Not Establ.)
[2018-11-16 15:00] VITALS: BP 128/59
[2018-11-16 19:50] VITALS: BP 119/49
[2018-11-16] MEDS: ALBUTEROL SULFATE 2.5 MG/3 ML NEBU. NEB PRN (19:55)
[2018-11-16] MEDS: ATORVASTATIN CALCIUM 10 MG TABLET. PO SCH (20:01)
[2018-11-16] MEDS ORDERED: HALOPERIDOL 5 MG TABLET. PO PRN (20:30)
[2018-11-16] MEDS: hydrOXYzine 10 MG TABLET PO PRN (21:14)
[2018-11-16 23:46] VITALS: BP 111/63
[2018-11-17] VITALS (9 sets, daily range): BP systolic 105–144; BP diastolic 49–85
[2018-11-17] MEDS: ALBUTEROL SULFATE 2.5 MG/3 ML NEBU. NEB PRN (07:10)
[2018-11-17] MEDS: INSULIN LISPRO 300 UNITS/3 ML INSULN.PEN. SQ SCH ×3 (08:00→17:00)
--- NOTE | 2018-11-17 08:27 | PDOC ---
SUBJECTIVE ROS Follow-up for acute renal failure Patient claims she's feeling well and wants to go home however his reports that he has not slept well overnight. He has remained restless and somewhat confused CVS: ? Orthopnea, NO CP RESP: MIN SOB, NO HAIRSTON GI: NO Nausea, NO Vomiting : NO Dysuria, NO Urgency OBJECTIVE Vital Signs Vital Signs Date Time Temp Pulse Resp B/P (MAP) Pulse Ox O2 Delivery O2 Flow Rate FiO2 11/17/18 07:12 98 Room Air 11/17/18 07:05 99.7 92 20 133/50 (77) 99.7 11/16/18 21:10 2.0 I & 0 Intake and Output 11/17/18 07:00 Intake Total 700 ml Output Total 400 ml Balance 300 ml Intake Oral 700 ml Output Urine Total 400 ml # Voids 3 # Bowel Movements 3 PHYSICAL EXAM Physical Exam General Appearance: Awake Alert Oriented x 2-3 In no obvious Distress Eyes: VIsion Unchanged Conjunctiva Normal EN: No EN Drainage Mucous Memb. moist Neck: no JVD min JVP Supple no Thyromegaly CVS: S1 S2 soft Murmur No Gallop No Rub +2 Edema Resp: rare Rales no Rhonchi no Acc. Muscle use GI: BS +ve NO Bruit Non Tender Non Distended : no CVA tenderness; no Suprapubic Tenderness SKIN: no Rashes Breast Exam deferred Mu.Sk: Adequate ROM no Muscle Atrophy Heme: Unable to palpate Obvious LAD no palp Splenomegaly NEURO: Good Strength and Tone Cranial Nerves II - XII grossly intact Psych: ? 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 Would ideally merited a biopsy of his kidney to ascertain precise etiology. While a biopsy can be obtained, I'm unsure if he is a candidate for further immunosuppression at this point. Serologies will be ordered. 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 Swan and colleagues may help determine further course of action with regards to kidney biopsy, dialysis, so I will benefit, quality of life versus proceeding with palliation and hospice (I favor the latter). LDH and uric acid seem to be elevated which does suggest some possibility of tumor lysis, albeit low-grade Delirium: Check blood cultures. Unclear if this is uremic. would like to discuss and ponder next step with regards to dialysis versus biopsy versus both Anemia: Deferred to Dr. Swan to manage in the setting of active malignancy Edema lower extremity: Suspect due to severe hypoalbuminemia: IV albumin as ordered. We'll add Lasix also. Stop IV fluids. Some of this may also be due to fluid retention associated with his most recent chemotherapeutic regimen Marginal hypotension: Improved after IV albumin use COMMENT/RELEVANT DATA Meds Current Medications Medications (Trade) Dose Ordered Sig/Katherine Start Time Stop Time Status Last Admin Dose Admin Albumin Human 100 ml @ 100 mls/hr TID 11/16/18 14:00 11/18/18 09:59 11/16/18 20:00 100 MLS/HR Albuterol Sulfate (Ventolin Neb Soln) 2.5 mg PRN Q6HRS PRN 11/16/18 11:45 11/17/18 07:10 2.5 MG Albuterol/ Ipratropium (Duoneb) 3 ml RTQID 11/15/18 16:00 11/16/18 11:33 DC 11/16/18 07:47 3 ML Amlodipine Besylate (Norvasc) 5 mg DAILY 11/16/18 09:00 11/16/18 08:16 5 MG Atenolol (Tenormin) 50 mg DAILY 11/16/18 09:00 11/16/18 08:16 50 MG Atorvastatin Calcium (Lipitor) 10 mg QHS 11/15/18 21:00 11/16/18 20:01 10 MG Dextrose (Dextrose 50%-Water Syringe) 12.5 gm PRN Q15MIN PRN 11/16/18 11:30 Docusate Sodium (Colace) 100 mg BID 11/16/18 11:15 11/16/18 20:01 100 MG Ergocalciferol (Vitamin D2) 50,000 unit WEEKLY 11/16/18 09:00 11/16/18 08:15 50,000 UNIT Folic Acid (Folic Acid) 1 mg DAILY 11/16/18 09:00 11/16/18 08:17 1 MG Haloperidol (Haldol) 5 mg PRN Q12HR PRN 11/16/18 20:30 11/17/18 03:51 5 MG Heparin Sodium (Porcine) (Heparin Sodium) 5,000 unit Q12HR 11/15/18 15:00 11/16/18 21:17 5,000 UNIT Hydroxyzine HCl (Atarax) 10 mg PRN Q6HRS PRN 11/16/18 20:30 11/16/18 21:14 10 MG Insulin Human Lispro (HumaLOG) 0-5 UNITS TIDWMEALS 11/16/18 12:00 11/16/18 11:37 2 UNITS Magnesium Sulfate 50 ml @ 25 mls/hr PRN DAILY PRN 11/16/18 12:00 Morphine Sulfate (Morphine Sulfate) 2 mg PRN Q2HR PRN 11/15/18 12:15 11/16/18 12:14 DC 11/15/18 12:26 2 MG Ondansetron HCl (Zofran) 4 mg PRN Q8HRS PRN 11/15/18 12:15 11/16/18 12:14 DC 11/15/18 12:26 4 MG Oxycodone/ Acetaminophen (Percocet 10/325) 1 tab PRN Q6HRS PRN 11/15/18 15:00 11/16/18 20:02 1 TAB Pantoprazole Sodium (Protonix) 40 mg DAILYAC 11/16/18 07:30 11/16/18 08:17 40 MG Sodium Chloride 1,000 ml @ 100 mls/hr Q10H 11/16/18 11:15 11/16/18 21:21 100 MLS/HR Lab Laboratory Tests Test 11/16/18 08:35 11/16/18 11:16 11/16/18 13:30 11/16/18 16:45 White Blood Count 14.5 x10^3/uL (4.0-11.0) Red Blood Count 2.86 x10^6/uL (4.30-5.70) Hemoglobin 7.9 g/dL (13.0-17.5) Hematocrit 24.8 % (39.0-53.0) Mean Corpuscular Volume 87 fL (79-100) Mean Corpuscular Hemoglobin 28 pg (25-35) Mean Corpuscular Hemoglobin Concent 32 g/dL (31-37) Red Cell Distribution Width 19.3 % (11.5-14.5) Platelet Count 610 x10^3/uL (140-400) Neutrophils (%) (Auto) 80 % (31-73) Lymphocytes (%) (Auto) 10 % (24-48) Monocytes (%) (Auto) 10 % (0-9) Eosinophils (%) (Auto) 0 % (0-3) Basophils (%) (Auto) 0 % (0-3) Neutrophils # (Auto) 11.6 x10^3uL (1.8-7.7) Lymphocytes # (Auto) 1.5 x10^3/uL (1.0-4.8) Monocytes # (Auto) 1.4 x10^3/uL (0.0-1.1) Eosinophils # (Auto) 0.0 x10^3/uL (0.0-0.7) Basophils # (Auto) 0.0 x10^3/uL (0.0-0.2) Sodium Level 134 mmol/L (136-145) Potassium Level 5.0 mmol/L (3.5-5.1) Chloride Level 98 mmol/L (98-107) Carbon Dioxide Level 22 mmol/L (21-32) Anion Gap 14 (6-14) Blood Urea Nitrogen 68 mg/dL (8-26) Creatinine 5.5 mg/dL (0.7-1.3) Estimated GFR (Cockcroft-Gault) 10.6 Glucose Level 150 mg/dL (70-99) Uric Acid 11.4 mg/dL (3.5-7.2) Calcium Level 8.3 mg/dL (8.5-10.1) Lactate Dehydrogenase 731 U/L (85-227) Creatine Kinase 69 U/L (39-308) Glucose (Fingerstick) 178 mg/dL (70-99) 122 mg/dL (70-99) Urine Collection Type Unknown Urine Color Yellow Urine Clarity Clear Urine pH 5.5 Urine Specific [place] 1.020 Urine Protein >=300 mg/dL (NEG-TRACE) Urine Glucose (UA) Negative mg/dL (NEG) Urine Ketones (Stick) Negative mg/dL (NEG) Urine Blood Trace (NEG) Urine Nitrite Negative (NEG) Urine Bilirubin Negative (NEG) Urine Urobilinogen Dipstick 0.2 mg/dL (0.2 mg/dL) Urine Leukocyte Esterase Negative (NEG) Urine RBC 1-2 /HPF (0-2) Urine WBC 1-4 /HPF (0-4) Urine Squamous Epithelial Cells Mod /LPF Urine Bacteria 0 /HPF (0-FEW) Urine Hyaline Casts Few /HPF Urine Waxy Casts Moderate /HPF Urine Mucus Mod /LPF Urine Random Creatinine 78.7 mg/dL (Not Establ.) Urine Random Total Protein 744.9 mg/dL (Not Establ.) Urine Random Sodium <60 mmol/L (Not Estab.) Urine Protein/Creatinine Ratio 9465 mg/g (0-200) Test 11/16/18 20:23 11/17/18 07:09 Glucose (Fingerstick) 116 mg/dL (70-99) 98 mg/dL (70-99) Results All relevant outside records, renal labs, imaging studies, telemetry/EKG's were reviewed. DEXTER MOON MD Nov 17, 2018 08:27
[2018-11-17] MEDS: IV NORMAL SALINE 1000ML BAG 1,000 ML IV SCH (08:51)
[2018-11-17] MEDS: ALBUMIN HUMAN 25% 100 ML IV SCH ×3 (08:51→20:14)
[2018-11-17] MEDS: amLODIPine BESYLATE 5 MG TABLET PO SCH (08:52)
[2018-11-17] MEDS: FOLIC ACID 1 MG TABLET. PO SCH (08:52)
[2018-11-17] MEDS: PANTOPRAZOLE 40 MG TABLET.DR. PO SCH (08:52)
[2018-11-17] MEDS: FUROSEMIDE 40 MG/4 ML VIAL. IVP SCH ×2 (08:52→14:17)
[2018-11-17] MEDS: DOCUSATE SODIUM 100 MG CAPSULE. PO SCH ×2 (08:53→20:16)
[2018-11-17] MEDS: ATENOLOL 50 MG TABLET. PO SCH (08:53)
[2018-11-17] MEDS: HEPARIN for SUB-Q USE 5,000 UNIT/ML VIAL. SQ SCH ×2 (08:55→21:00)
[2018-11-17 12:35] LABS: RED BLOOD COUNT 2.32 x10^6/uL (4.30-5.70); RED CELL DISTRIBUTION WIDTH 19.9 % (11.5-14.5)
[2018-11-17 12:43] LABS: HEMATOCRIT 20.3 % (39.0-53.0); HEMOGLOBIN 6.2 g/dL (13.0-17.5)
[2018-11-17 12:48] LABS: PROTHROMBIN TIME PATIENT 15.6 SEC (11.7-14.0)
--- NOTE | 2018-11-17 13:00 | PDOC ---
PROGRESS NOTES Subjective Subjective Patient without complaint, denies pain. Objective Objective Vital Signs Date Time Temp Pulse Resp B/P (MAP) Pulse Ox O2 Delivery O2 Flow Rate FiO2 11/17/18 11:03 98.5 99 20 124/49 (74) 95 Room Air 98.5 11/17/18 08:00 2.0 Intake and Output 11/17/18 06:59 Intake Total 700 ml Output Total 400 ml Balance 300 ml Intake Oral 700 ml Output Urine Total 400 ml # Voids 3 # Bowel Movements 3 Physical Exam Abdomen: Normal bowel sounds, Soft, No tenderness Heart: Regular rate Extremities: Other (mild LE edema) General: Alert, No acute distress Lungs: Clear to auscultation Assessment Assessment Problems Medical Problems: (1) Acute renal failure Status: Acute Plan Plan of Care 1. Acute renal failure - Dr Cohn feels probably due to glomerulonephritis with significant proteinuria present and low Albumin. Lab from today pending. Continue tx per Renal. 2. stage IV lung cancer - Hgb decreased to 6.2, transfusion ordered. Chemotx presently on hold. Oncology following. 3. metabolic encephalopathy - received some Haldol and Hydroxyzine last night to help with agitation. Calm and cooperative presently, continue medication as needed. 4. HTN - controlled, continue present medication. 5. DM2 - controlled. 6. COPD - stable, continue nebs as needed. Comment Review of Relevant I have reviewed the following items vanessa (where applicable) has been applied. Labs Laboratory Tests Test 11/15/18 16:58 11/15/18 20:48 11/16/18 07:23 11/16/18 08:35 Glucose (Fingerstick) 181 mg/dL (70-99) 177 mg/dL (70-99) 136 mg/dL (70-99) White Blood Count 14.5 x10^3/uL (4.0-11.0) Red Blood Count 2.86 x10^6/uL (4.30-5.70) Hemoglobin 7.9 g/dL (13.0-17.5) Hematocrit 24.8 % (39.0-53.0) Mean Corpuscular Volume 87 fL (79-100) Mean Corpuscular Hemoglobin 28 pg (25-35) Mean Corpuscular Hemoglobin Concent 32 g/dL (31-37) Red Cell Distribution Width 19.3 % (11.5-14.5) Platelet Count 610 x10^3/uL (140-400) Neutrophils (%) (Auto) 80 % (31-73) Lymphocytes (%) (Auto) 10 % (24-48) Monocytes (%) (Auto) 10 % (0-9) Eosinophils (%) (Auto) 0 % (0-3) Basophils (%) (Auto) 0 % (0-3) Neutrophils # (Auto) 11.6 x10^3uL (1.8-7.7) Lymphocytes # (Auto) 1.5 x10^3/uL (1.0-4.8) Monocytes # (Auto) 1.4 x10^3/uL (0.0-1.1) Eosinophils # (Auto) 0.0 x10^3/uL (0.0-0.7) Basophils # (Auto) 0.0 x10^3/uL (0.0-0.2) Sodium Level 134 mmol/L (136-145) Potassium Level 5.0 mmol/L (3.5-5.1) Chloride Level 98 mmol/L (98-107) Carbon Dioxide Level 22 mmol/L (21-32) Anion Gap 14 (6-14) Blood Urea Nitrogen 68 mg/dL (8-26) Creatinine 5.5 mg/dL (0.7-1.3) Estimated GFR (Cockcroft-Gault) 10.6 Glucose Level 150 mg/dL (70-99) Uric Acid 11.4 mg/dL (3.5-7.2) Calcium Level 8.3 mg/dL (8.5-10.1) Lactate Dehydrogenase 731 U/L (85-227) Creatine Kinase 69 U/L (39-308) Test 11/16/18 11:16 11/16/18 13:30 11/16/18 16:45 11/16/18 20:23 Glucose (Fingerstick) 178 mg/dL (70-99) 122 mg/dL (70-99) 116 mg/dL (70-99) Urine Collection Type Unknown Urine Color Yellow Urine Clarity Clear Urine pH 5.5 Urine Specific [place] 1.020 Urine Protein >=300 mg/dL (NEG-TRACE) Urine Glucose (UA) Negative mg/dL (NEG) Urine Ketones (Stick) Negative mg/dL (NEG) Urine Blood Trace (NEG) Urine Nitrite Negative (NEG) Urine Bilirubin Negative (NEG) Urine Urobilinogen Dipstick 0.2 mg/dL (0.2 mg/dL) Urine Leukocyte Esterase Negative (NEG) Urine RBC 1-2 /HPF (0-2) Urine WBC 1-4 /HPF (0-4) Urine Squamous Epithelial Cells Mod /LPF Urine Bacteria 0 /HPF (0-FEW) Urine Hyaline Casts Few /HPF Urine Waxy Casts Moderate /HPF Urine Mucus Mod /LPF Urine Random Creatinine 78.7 mg/dL (Not Establ.) Urine Random Total Protein 744.9 mg/dL (Not Establ.) Urine Random Sodium <60 mmol/L (Not Estab.) Urine Protein/Creatinine Ratio 9465 mg/g (0-200) Test 11/17/18 07:09 11/17/18 11:36 11/17/18 12:05 Glucose (Fingerstick) 98 mg/dL (70-99) 114 mg/dL (70-99) White Blood Count 13.0 x10^3/uL (4.0-11.0) Red Blood Count 2.32 x10^6/uL (4.30-5.70) Hemoglobin 6.2 g/dL (13.0-17.5) Hematocrit 20.3 % (39.0-53.0) Mean Corpuscular Volume 88 fL (79-100) Mean Corpuscular Hemoglobin 27 pg (25-35) Mean Corpuscular Hemoglobin Concent 31 g/dL (31-37) Red Cell Distribution Width 19.9 % (11.5-14.5) Platelet Count 487 x10^3/uL (140-400) Laboratory Tests Test 11/16/18 13:30 11/16/18 16:45 11/16/18 20:23 11/17/18 07:09 Urine Collection Type Unknown Urine Color Yellow Urine Clarity Clear Urine pH 5.5 Urine Specific [place] 1.020 Urine Protein >=300 mg/dL (NEG-TRACE) Urine Glucose (UA) Negative mg/dL (NEG) Urine Ketones (Stick) Negative mg/dL (NEG) Urine Blood Trace (NEG) Urine Nitrite Negative (NEG) Urine Bilirubin Negative (NEG) Urine Urobilinogen Dipstick 0.2 mg/dL (0.2 mg/dL) Urine Leukocyte Esterase Negative (NEG) Urine RBC 1-2 /HPF (0-2) Urine WBC 1-4 /HPF (0-4) Urine Squamous Epithelial Cells Mod /LPF Urine Bacteria 0 /HPF (0-FEW) Urine Hyaline Casts Few /HPF Urine Waxy Casts Moderate /HPF Urine Mucus Mod /LPF Urine Random Creatinine 78.7 mg/dL (Not Establ.) Urine Random Total Protein 744.9 mg/dL (Not Establ.) Urine Random Sodium <60 mmol/L (Not Estab.) Urine Protein/Creatinine Ratio 9465 mg/g (0-200) Glucose (Fingerstick) 122 mg/dL (70-99) 116 mg/dL (70-99) 98 mg/dL (70-99) Test 11/17/18 11:36 11/17/18 12:05 Glucose (Fingerstick) 114 mg/dL (70-99) White Blood Count 13.0 x10^3/uL (4.0-11.0) Red Blood Count 2.32 x10^6/uL (4.30-5.70) Hemoglobin 6.2 g/dL (13.0-17.5) Hematocrit 20.3 % (39.0-53.0) Mean Corpuscular Volume 88 fL (79-100) Mean Corpuscular Hemoglobin 27 pg (25-35) Mean Corpuscular Hemoglobin Concent 31 g/dL (31-37) Red Cell Distribution Width 19.9 % (11.5-14.5) Platelet Count 487 x10^3/uL (140-400) Microbiology 11/15/18 Blood Culture - Preliminary, Resulted NO GROWTH AFTER 1 DAY Medications Current Medications Ondansetron HCl (Zofran) 4 mg PRN Q8HRS PRN IV NAUSEA/VOMITING Last administered on 11/15/18at 12:26; Start 11/15/18 at 12:15; Stop 11/16/18 at 12:14; Status DC Morphine Sulfate (Morphine Sulfate) 2 mg PRN Q2HR PRN IV PAIN Last administered on 11/15/18at 12:26; Start 11/15/18 at 12:15; Stop 11/16/18 at 12:14; Status DC Sodium Chloride 1,000 ml @ 100 mls/hr Q10H IV Last administered on 11/15/18at 12:25; Start 11/15/18 at 12:05; Stop 11/15/18 at 22:04; Status DC Heparin Sodium (Porcine) (Heparin Sodium) 5,000 unit Q12HR SQ Last administered on 11/17/18 08:55; Start 11/15/18 at 15:00 Amlodipine Besylate (Norvasc) 5 mg DAILY PO Last administered on 11/17/18 08:52; Start 11/16/18 at 09:00 Atenolol (Tenormin) 50 mg DAILY PO Last administered on 11/17/18 08:53; Start 11/16/18 at 09:00 Atorvastatin Calcium (Lipitor) 10 mg QHS PO Last administered on 11/16/18 20:01; Start 11/15/18 at 21:00 Ergocalciferol (Vitamin D2) 50,000 unit WEEKLY PO Last administered on 11/16/18 08:15; Start 11/16/18 at 09:00 Folic Acid (Folic Acid) 1 mg DAILY PO Last administered on 11/17/18 08:52; Start 11/16/18 at 09:00 Albuterol/ Ipratropium (Duoneb) 3 ml RTQID NEB Last administered on 11/16/18 07:47; Start 11/15/18 at 16:00; Stop 11/16/18 at 11:33; Status DC Oxycodone/ Acetaminophen (Percocet 10/325) 1 tab PRN Q6HRS PRN PO PAIN Last administered on 11/16/18 20:02; Start 11/15/18 at 15:00 Pantoprazole Sodium (Protonix) 40 mg DAILYAC PO Last administered on 11/17/18 08:52; Start 11/16/18 at 07:30 Sodium Chloride 1,000 ml @ 100 mls/hr Q10H IV Last administered on 11/17/18 08:51; Start 11/16/18 at 11:15 Docusate Sodium (Colace) 100 mg BID PO Last administered on 11/16/18 20:01; Start 11/16/18 at 11:15 Insulin Human Lispro (HumaLOG) 0-5 UNITS TIDWMEALS SQ Last administered on 11/16/18 11:37; Start 11/16/18 at 12:00 Dextrose (Dextrose 50%-Water Syringe) 12.5 gm PRN Q15MIN PRN IV SEE COMMENTS; Start 11/16/18 at 11:30 Albuterol Sulfate (Ventolin Neb Soln) 2.5 mg PRN Q6HRS PRN NEB SHORTNESS OF BREATH Last administered on 11/17/18at 07:10; Start 11/16/18 at 11:45 Magnesium Sulfate 50 ml @ 25 mls/hr PRN DAILY PRN IV for Mag < 1.7 on am labs; Start 11/16/18 at 12:00 Albumin Human 100 ml @ 100 mls/hr TID IV Last administered on 11/17/18at 08:51; Start 11/16/18 at 14:00; Stop 11/18/18 at 09:59 Haloperidol (Haldol) 5 mg PRN Q12HR PRN PO AGITATION Last administered on 11/17/18at 03:51; Start 11/16/18 at 20:30 Hydroxyzine HCl (Atarax) 10 mg PRN Q6HRS PRN PO ANXIETY/AGITATION Last administered on 11/16/18at 21:14; Start 11/16/18 at 20:30 Furosemide (Lasix) 40 mg BID92 IVP Last administered on 11/17/18at 08:52; Start 11/17/18 at 09:00 Active Scripts Active Duoneb 0.5-3(2.5) Mg/3 Ml (Albuterol/Ipratropium) 3 Ml Ampul.neb 3 Ml NEB RTQID 30 Days Reported Metformin Hcl 1,000 Mg Tablet 1,000 Mg PO BIDWMEALS Flonase Allergy Relief (Fluticasone Propionate) 9.9 Ml [place].susp 2 Sprays NS DAILY Aspirin 81 Mg Tab.chew 1 Tab PO DAILY Percocet 10-325 Mg Tablet (Oxycodone/Acetaminophen) 1 Each Tablet 1 Tab PO PRN Q6HRS PRN Folic Acid 1 Mg Tablet 1 Tab PO DAILY Atenolol 50 Mg Tablet 1 Tab PO DAILY Omeprazole 20 Mg Tablet.dr 1 Tab PO DAILY Atorvastatin Calcium 10 Mg Tablet 1 Tab PO DAILY Amlodipine Besylate 5 Mg Tablet 5 Mg PO DAILY Lisinopril 40 Mg Tablet 1 Tab PO DAILY Vitamin D2 (Ergocalciferol (Vitamin D2)) 50,000 Unit Capsule 1 Cap PO WEEKLY Vitals/I & O Vital Sign - Last 24 Hours 11/16/18 11/16/18 11/16/18 11/16/18 13:04 15:00 19:50 20:02 Temp 99.0 99.2 99.0 99.2 Pulse 94 96 Resp B/P (MAP) 128/59 (82) 119/49 (72) Pulse Ox 98 98 96 96 O2 Delivery Room Air Room Air Nasal Cannula O2 Flow Rate 2.0 11/16/18 11/16/18 11/16/18 11/17/18 20:10 21:10 23:46 03:41 Temp 98.8 98.0 98.8 98.0 Pulse 87 90 Resp B/P (MAP) 111/63 (79) 144/65 (91) Pulse Ox 96 100 O2 Delivery Nasal Cannula Nasal Cannula Room Air Room Air O2 Flow Rate 2.0 2.0 11/17/18 11/17/18 11/17/18 11/17/18 07:05 07:12 08:00 08:52 Temp 99.7 99.7 Pulse 92 92 Resp 20 B/P (MAP) 133/50 (77) 133/50 Pulse Ox 97 98 O2 Delivery Room Air Room Air Nasal Cannula O2 Flow Rate 2.0 11/17/18 11/17/18 08:53 11:03 Temp 98.5 98.5 Pulse 92 99 Resp 20 B/P (MAP) 133/50 124/49 (74) Pulse Ox 95 O2 Delivery Room Air Intake and Output 0 11/16/18 11/16/18 11/17/18 14:59 22:59 06:59 Intake Total 200 ml 500 ml Output Total 400 ml Balance 200 ml 100 ml ANASTACIA ARSHAD MD Nov 17, 2018 13:00
[2018-11-17 13:05] LABS: ALBUMIN 2.5 g/dL (3.4-5.0); CALCIUM 8.6 mg/dL (8.5-10.1); CREATININE 5.6 mg/dL (0.7-1.3); GFR 10.3; PHOSPHORUS 4.7 mg/dL (2.6-4.7); POTASSIUM 5.2 mmol/L (3.5-5.1)
[2018-11-17] MEDS: oxyCODONE/APAP 10/325 1 TAB TABLET PO PRN (20:15)
[2018-11-17] MEDS: hydrOXYzine 10 MG TABLET PO PRN (20:15)
[2018-11-17] MEDS: ATORVASTATIN CALCIUM 10 MG TABLET. PO SCH (20:15)
--- NOTE | 2018-11-18 04:12 | NUR ---
Patients stated that she wanted the patient to have some sort of intervention Sunday such as dialysis. As per 's request patient was NPO at midnight and heparin was held until she can speak to the Dr in the am and discuss if an intervention is possible for today.
[2018-11-18 05:31] LABS: BASO % 0 % (0-3); EOS # 0.1 x10^3/uL (0.0-0.7); EOS % 1 % (0-3); HEMATOCRIT 23.5 % (39.0-53.0); HEMOGLOBIN 7.4 g/dL (13.0-17.5); LYMPH # 1.5 x10^3/uL (1.0-4.8); LYMPH % 10 % (24-48); MEAN CORPUSCULAR HEMOGLOBIN 28 pg (25-35); MEAN CORPUSCULAR HGB CONC 32 g/dL (31-37); MEAN CORPUSCULAR VOLUME 87 fL (79-100); MONO # 1.5 x10^3/uL (0.0-1.1); MONO % 10 % (0-9); NEUT # 11.9 x10^3uL (1.8-7.7); NEUT % 79 % (31-73); PLATELET COUNT 475 x10^3/uL (140-400); RED BLOOD COUNT 2.69 x10^6/uL (4.30-5.70)
[2018-11-18 06:09] LABS: ALBUMIN 2.5 g/dL (3.4-5.0); CALCIUM 9.4 mg/dL (8.5-10.1); CREATININE 5.7 mg/dL (0.7-1.3); GFR 10.1; MAGNESIUM 1.8 mg/dL (1.8-2.4); PHOSPHORUS 5.1 mg/dL (2.6-4.7); POTASSIUM 5.1 mmol/L (3.5-5.1)
--- NOTE | 2018-11-18 06:16 | NUR ---
Patient is unable to rest unless in a tripod position. Slept sitting on the edge of the bed with head resting on the table.
[2018-11-18 07:00] VITALS: BP 125/60
[2018-11-18] MEDS: INSULIN LISPRO 300 UNITS/3 ML INSULN.PEN. SQ SCH ×3 (08:00→17:30)
--- NOTE | 2018-11-18 08:09 | EKG ---
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 Electronically Signed On 11-20-2018 12:08:08 CDT by Darin Wall
[2018-11-18] MEDS: PANTOPRAZOLE 40 MG TABLET.DR. PO SCH (09:22)
[2018-11-18] MEDS: DOCUSATE SODIUM 100 MG CAPSULE. PO SCH ×2 (09:22→21:28)
[2018-11-18] MEDS: FOLIC ACID 1 MG TABLET. PO SCH (09:22)
[2018-11-18] MEDS: ATENOLOL 50 MG TABLET. PO SCH (09:22)
[2018-11-18] MEDS: amLODIPine BESYLATE 5 MG TABLET PO SCH (09:23)
[2018-11-18] MEDS: FUROSEMIDE 40 MG/4 ML VIAL. IVP SCH ×2 (09:24→14:07)
[2018-11-18] MEDS: ALBUMIN HUMAN 25% 100 ML IV SCH (09:25)
[2018-11-18] MEDS: oxyCODONE/APAP 10/325 1 TAB TABLET PO PRN ×3 (09:48→21:27)
[2018-11-18] MEDS: HEPARIN for SUB-Q USE 5,000 UNIT/ML VIAL. SQ SCH ×2 (10:10→21:32)
--- NOTE | 2018-11-18 10:33 | PDOC ---
SUBJECTIVE ROS c/o pain in his back and requesting pain meds Also c/o Mild sob when lying down UOP decreased Overnight , No Franz No N/V OBJECTIVE Vital Signs Vital Signs Date Time Temp Pulse Resp B/P (MAP) Pulse Ox O2 Delivery O2 Flow Rate FiO2 11/18/18 07:00 99.3 89 16 125/60 (81) 100 Nasal Cannula 1.0 99.3 I & 0 Intake and Output 11/18/18 07:00 Intake Total 1114 ml Output Total 152 ml Balance 962 ml Intake Oral 700 ml IV Total 100 ml Blood Product IV Normal Saline Flush 314 ml Output Urine Total 150 ml Urine/Stool Mix 2 ml # Voids 2 # Bowel Movements 1 PHYSICAL EXAM Physical Exam GEN: NAD HEEN: OM moist , O2 by NC NECK: Supple CVS: RRR RESP: No Rales, No Rhonchi,[ No Acc. Muscle Use GI: BS + ve, NO Bruit, Non Tender, Non Distended : No CVA tenderness, [No Suprapubic Tenderness, No Franz Neuro - Alert, Oriented DIAGNOSIS/ASSESSMENT Assessment & Plan Acute kidney injury: Etiology Uncertain - Creat was normal at 1.12 on 10/24/2018 up to 5.7 on 11/15/2018 Except for docetaxel, no other new meds as per , has been on Lisinopril and PPI for long time Nephrotic range proteinuria +, No Micr hematuria , No casts reported Cannot r/o glomerulonephritis vs ATN vs AIN without Renal Bx Unsure if he is a candidate for further immunosuppression at this point Serologies ordered by Dr. Cohn- pending results Proteinuria: Nephrotic range as above , Serologies pending result Secondary membranous nephropathy in DDx in setting of stage IV lung cancer History of stage IV lung cancer: Prognosis of the same from Dr. Swan and colleagues may help determine further course of action with regards to kidney biopsy, dialysis, quality of life versus proceeding with palliation and hospice Delirium:As per MS improved today Anemia:Deferred to Dr. Swan to manage in the setting of active malignancy Edema lower extremity: Have been receiving IV Albumin and Lasix Overnight decreased UOP , get bladder scan Discussed A/P-Bx, Dialysis etc with Pt , and RN Further plan as per Dr. Swan Palliative Consult COMMENT/RELEVANT DATA Meds Current Medications Medications (Trade) Dose Ordered Sig/Katherine Start Time Stop Time Status Last Admin Dose Admin Albumin Human 100 ml @ 100 mls/hr TID 11/16/18 14:00 11/18/18 09:59 11/17/18 20:14 100 MLS/HR Albuterol Sulfate (Ventolin Neb Soln) 2.5 mg PRN Q6HRS PRN 11/16/18 11:45 11/17/18 07:10 2.5 MG Albuterol/ Ipratropium (Duoneb) 3 ml RTQID 11/15/18 16:00 11/16/18 11:33 DC 11/16/18 07:47 3 ML Amlodipine Besylate (Norvasc) 5 mg DAILY 11/16/18 09:00 11/17/18 08:52 5 MG Atenolol (Tenormin) 50 mg DAILY 11/16/18 09:00 11/17/18 08:53 50 MG Atorvastatin Calcium (Lipitor) 10 mg QHS 11/15/18 21:00 11/17/18 20:15 10 MG Dextrose (Dextrose 50%-Water Syringe) 12.5 gm PRN Q15MIN PRN 11/16/18 11:30 Docusate Sodium (Colace) 100 mg BID 11/16/18 11:15 11/17/18 20:16 100 MG Ergocalciferol (Vitamin D2) 50,000 unit WEEKLY 11/16/18 09:00 11/16/18 08:15 50,000 UNIT Folic Acid (Folic Acid) 1 mg DAILY 11/16/18 09:00 11/17/18 08:52 1 MG Furosemide (Lasix) 40 mg BID92 11/17/18 09:00 11/17/18 14:17 40 MG Haloperidol (Haldol) 5 mg PRN Q12HR PRN 11/16/18 20:30 11/17/18 03:51 5 MG Heparin Sodium (Porcine) (Heparin Sodium) 5,000 unit Q12HR 11/15/18 15:00 11/17/18 08:55 5,000 UNIT Hydroxyzine HCl (Atarax) 10 mg PRN Q6HRS PRN 11/16/18 20:30 11/17/18 20:15 10 MG Insulin Human Lispro (HumaLOG) 0-5 UNITS TIDWMEALS 11/16/18 12:00 11/16/18 11:37 2 UNITS Magnesium Sulfate 50 ml @ 25 mls/hr PRN DAILY PRN 11/16/18 12:00 Morphine Sulfate (Morphine Sulfate) 2 mg PRN Q2HR PRN 11/15/18 12:15 11/16/18 12:14 DC 11/15/18 12:26 2 MG Ondansetron HCl (Zofran) 4 mg PRN Q8HRS PRN 11/15/18 12:15 11/16/18 12:14 DC 11/15/18 12:26 4 MG Oxycodone/ Acetaminophen (Percocet 10/325) 1 tab PRN Q6HRS PRN 11/15/18 15:00 11/17/18 20:15 1 TAB Pantoprazole Sodium (Protonix) 40 mg DAILYAC 11/16/18 07:30 11/17/18 08:52 40 MG Sodium Chloride 1,000 ml @ 100 mls/hr Q10H 11/16/18 11:15 11/17/18 16:17 DC 11/17/18 08:51 100 MLS/HR Lab Laboratory Tests Test 11/17/18 11:36 11/17/18 12:05 11/17/18 16:41 11/17/18 20:22 Glucose (Fingerstick) 114 mg/dL (70-99) 125 mg/dL (70-99) 132 mg/dL (70-99) White Blood Count 13.0 x10^3/uL (4.0-11.0) Red Blood Count 2.32 x10^6/uL (4.30-5.70) Hemoglobin 6.2 g/dL (13.0-17.5) Hematocrit 20.3 % (39.0-53.0) Mean Corpuscular Volume 88 fL (79-100) Mean Corpuscular Hemoglobin 27 pg (25-35) Mean Corpuscular Hemoglobin Concent 31 g/dL (31-37) Red Cell Distribution Width 19.9 % (11.5-14.5) Platelet Count 487 x10^3/uL (140-400) Prothrombin Time 15.6 SEC (11.7-14.0) Prothromb Time International Ratio 1.3 (0.8-1.1) Activated Partial Thromboplast Time 36 SEC (24-38) Sodium Level 137 mmol/L (136-145) Potassium Level 5.2 mmol/L (3.5-5.1) Chloride Level 101 mmol/L (98-107) Carbon Dioxide Level 24 mmol/L (21-32) Anion Gap 12 (6-14) Blood Urea Nitrogen 71 mg/dL (8-26) Creatinine 5.6 mg/dL (0.7-1.3) Estimated GFR (Cockcroft-Gault) 10.3 Glucose Level 124 mg/dL (70-99) Calcium Level 8.6 mg/dL (8.5-10.1) Phosphorus Level 4.7 mg/dL (2.6-4.7) Magnesium Level 1.8 mg/dL (1.8-2.4) Albumin 2.5 g/dL (3.4-5.0) Test 11/18/18 05:20 11/18/18 08:02 White Blood Count 15.0 x10^3/uL (4.0-11.0) Red Blood Count 2.69 x10^6/uL (4.30-5.70) Hemoglobin 7.4 g/dL (13.0-17.5) Hematocrit 23.5 % (39.0-53.0) Mean Corpuscular Volume 87 fL (79-100) Mean Corpuscular Hemoglobin 28 pg (25-35) Mean Corpuscular Hemoglobin Concent 32 g/dL (31-37) Red Cell Distribution Width 19.0 % (11.5-14.5) Platelet Count 475 x10^3/uL (140-400) Neutrophils (%) (Auto) 79 % (31-73) Lymphocytes (%) (Auto) 10 % (24-48) Monocytes (%) (Auto) 10 % (0-9) Eosinophils (%) (Auto) 1 % (0-3) Basophils (%) (Auto) 0 % (0-3) Neutrophils # (Auto) 11.9 x10^3uL (1.8-7.7) Lymphocytes # (Auto) 1.5 x10^3/uL (1.0-4.8) Monocytes # (Auto) 1.5 x10^3/uL (0.0-1.1) Eosinophils # (Auto) 0.1 x10^3/uL (0.0-0.7) Basophils # (Auto) 0.0 x10^3/uL (0.0-0.2) Sodium Level 138 mmol/L (136-145) Potassium Level 5.1 mmol/L (3.5-5.1) Chloride Level 101 mmol/L (98-107) Carbon Dioxide Level 23 mmol/L (21-32) Anion Gap 14 (6-14) Blood Urea Nitrogen 70 mg/dL (8-26) Creatinine 5.7 mg/dL (0.7-1.3) Estimated GFR (Cockcroft-Gault) 10.1 Glucose Level 93 mg/dL (70-99) Calcium Level 9.4 mg/dL (8.5-10.1) Phosphorus Level 5.1 mg/dL (2.6-4.7) Magnesium Level 1.8 mg/dL (1.8-2.4) Albumin 2.5 g/dL (3.4-5.0) Glucose (Fingerstick) 96 mg/dL (70-99) Results All relevant outside records, renal labs, imaging studies, telemetry/EKG's were reviewed. EUNICE FOSTER MD Nov 18, 2018 10:33
[2018-11-18 11:00] VITALS: BP 123/81
[2018-11-18 11:16] LABS: C4 COMPLEMENT 23 mg/dL (14-44)
--- NOTE | 2018-11-18 12:36 | NUR ---
SYDNEE following pt for anticipated dc needs. Chart reviewed and JOCELYN RN. Pt lives at home with spouse. PT/OT has been on hold. Palliative care also consulted. No dc recommendations at this time. Will continue to evaluate needs.
--- NOTE | 2018-11-18 13:24 | PDOC ---
PROGRESS NOTES Subjective Subjective Patient awake and alert but confused compared to base line not oriented to time or place. Palliative care ordered. some air hunger noted by nursing. Objective Objective Vital Signs Date Time Temp Pulse Resp B/P (MAP) Pulse Ox O2 Delivery O2 Flow Rate FiO2 11/18/18 11:48 17 Nasal Cannula 2.0 11/18/18 11:00 99.2 83 123/81 (95) 99 99.2 Intake and Output 11/18/18 07:00 Intake Total 1114 ml Output Total 152 ml Balance 962 ml Intake Oral 700 ml IV Total 100 ml Blood Product IV Normal Saline Flush 314 ml Output Urine Total 150 ml Urine/Stool Mix 2 ml # Voids 2 # Bowel Movements 1 Physical Exam Abdomen: Normal bowel sounds Heart: Regular rate Extremities: Other (2+ edema L ext) General: Alert Lungs: Clear to auscultation Assessment Assessment Problems Medical Problems: (1) Acute renal failure Status: Acute 1. Acute renal failure 2. stage IV lung cancer 3. metabolic encephalopathy 4. HTN 5. DM2 6. COPD Plan Plan of Care Add MS for air hunger Await palliative care consult Patient not a dialysis candidate Comment Review of Relevant I have reviewed the following items vanessa (where applicable) has been applied. Labs Laboratory Tests Test 11/16/18 13:30 11/16/18 16:45 11/16/18 20:23 11/17/18 07:09 Urine Collection Type Unknown Urine Color Yellow Urine Clarity Clear Urine pH 5.5 Urine Specific [place] 1.020 Urine Protein >=300 mg/dL (NEG-TRACE) Urine Glucose (UA) Negative mg/dL (NEG) Urine Ketones (Stick) Negative mg/dL (NEG) Urine Blood Trace (NEG) Urine Nitrite Negative (NEG) Urine Bilirubin Negative (NEG) Urine Urobilinogen Dipstick 0.2 mg/dL (0.2 mg/dL) Urine Leukocyte Esterase Negative (NEG) Urine RBC 1-2 /HPF (0-2) Urine WBC 1-4 /HPF (0-4) Urine Squamous Epithelial Cells Mod /LPF Urine Bacteria 0 /HPF (0-FEW) Urine Hyaline Casts Few /HPF Urine Waxy Casts Moderate /HPF Urine Mucus Mod /LPF Urine Random Creatinine 78.7 mg/dL (Not Establ.) Urine Random Total Protein 744.9 mg/dL (Not Establ.) Urine Random Sodium <60 mmol/L (Not Estab.) Urine Protein/Creatinine Ratio 9465 mg/g (0-200) Glucose (Fingerstick) 122 mg/dL (70-99) 116 mg/dL (70-99) 98 mg/dL (70-99) Test 11/17/18 11:36 11/17/18 12:05 11/17/18 16:41 11/17/18 20:22 Glucose (Fingerstick) 114 mg/dL (70-99) 125 mg/dL (70-99) 132 mg/dL (70-99) White Blood Count 13.0 x10^3/uL (4.0-11.0) Red Blood Count 2.32 x10^6/uL (4.30-5.70) Hemoglobin 6.2 g/dL (13.0-17.5) Hematocrit 20.3 % (39.0-53.0) Mean Corpuscular Volume 88 fL (79-100) Mean Corpuscular Hemoglobin 27 pg (25-35) Mean Corpuscular Hemoglobin Concent 31 g/dL (31-37) Red Cell Distribution Width 19.9 % (11.5-14.5) Platelet Count 487 x10^3/uL (140-400) Prothrombin Time 15.6 SEC (11.7-14.0) Prothromb Time International Ratio 1.3 (0.8-1.1) Activated Partial Thromboplast Time 36 SEC (24-38) Sodium Level 137 mmol/L (136-145) Potassium Level 5.2 mmol/L (3.5-5.1) Chloride Level 101 mmol/L (98-107) Carbon Dioxide Level 24 mmol/L (21-32) Anion Gap 12 (6-14) Blood Urea Nitrogen 71 mg/dL (8-26) Creatinine 5.6 mg/dL (0.7-1.3) Estimated GFR (Cockcroft-Gault) 10.3 Glucose Level 124 mg/dL (70-99) Calcium Level 8.6 mg/dL (8.5-10.1) Phosphorus Level 4.7 mg/dL (2.6-4.7) Magnesium Level 1.8 mg/dL (1.8-2.4) Albumin 2.5 g/dL (3.4-5.0) 25-Hydroxy Vitamin D Total 41.9 ng/mL (30-100) Complement C4 23 mg/dL (14-44) Test 11/18/18 05:20 11/18/18 08:02 11/18/18 10:30 White Blood Count 15.0 x10^3/uL (4.0-11.0) Red Blood Count 2.69 x10^6/uL (4.30-5.70) Hemoglobin 7.4 g/dL (13.0-17.5) Hematocrit 23.5 % (39.0-53.0) Mean Corpuscular Volume 87 fL (79-100) Mean Corpuscular Hemoglobin 28 pg (25-35) Mean Corpuscular Hemoglobin Concent 32 g/dL (31-37) Red Cell Distribution Width 19.0 % (11.5-14.5) Platelet Count 475 x10^3/uL (140-400) Neutrophils (%) (Auto) 79 % (31-73) Lymphocytes (%) (Auto) 10 % (24-48) Monocytes (%) (Auto) 10 % (0-9) Eosinophils (%) (Auto) 1 % (0-3) Basophils (%) (Auto) 0 % (0-3) Neutrophils # (Auto) 11.9 x10^3uL (1.8-7.7) Lymphocytes # (Auto) 1.5 x10^3/uL (1.0-4.8) Monocytes # (Auto) 1.5 x10^3/uL (0.0-1.1) Eosinophils # (Auto) 0.1 x10^3/uL (0.0-0.7) Basophils # (Auto) 0.0 x10^3/uL (0.0-0.2) Sodium Level 138 mmol/L (136-145) Potassium Level 5.1 mmol/L (3.5-5.1) Chloride Level 101 mmol/L (98-107) Carbon Dioxide Level 23 mmol/L (21-32) Anion Gap 14 (6-14) Blood Urea Nitrogen 70 mg/dL (8-26) Creatinine 5.7 mg/dL (0.7-1.3) Estimated GFR (Cockcroft-Gault) 10.1 Glucose Level 93 mg/dL (70-99) Calcium Level 9.4 mg/dL (8.5-10.1) Phosphorus Level 5.1 mg/dL (2.6-4.7) Magnesium Level 1.8 mg/dL (1.8-2.4) Albumin 2.5 g/dL (3.4-5.0) Glucose (Fingerstick) 96 mg/dL (70-99) 85 mg/dL (70-99) Laboratory Tests Test 11/17/18 16:41 11/17/18 20:22 11/18/18 05:20 11/18/18 08:02 Glucose (Fingerstick) 125 mg/dL (70-99) 132 mg/dL (70-99) 96 mg/dL (70-99) White Blood Count 15.0 x10^3/uL (4.0-11.0) Red Blood Count 2.69 x10^6/uL (4.30-5.70) Hemoglobin 7.4 g/dL (13.0-17.5) Hematocrit 23.5 % (39.0-53.0) Mean Corpuscular Volume 87 fL (79-100) Mean Corpuscular Hemoglobin 28 pg (25-35) Mean Corpuscular Hemoglobin Concent 32 g/dL (31-37) Red Cell Distribution Width 19.0 % (11.5-14.5) Platelet Count 475 x10^3/uL (140-400) Neutrophils (%) (Auto) 79 % (31-73) Lymphocytes (%) (Auto) 10 % (24-48) Monocytes (%) (Auto) 10 % (0-9) Eosinophils (%) (Auto) 1 % (0-3) Basophils (%) (Auto) 0 % (0-3) Neutrophils # (Auto) 11.9 x10^3uL (1.8-7.7) Lymphocytes # (Auto) 1.5 x10^3/uL (1.0-4.8) Monocytes # (Auto) 1.5 x10^3/uL (0.0-1.1) Eosinophils # (Auto) 0.1 x10^3/uL (0.0-0.7) Basophils # (Auto) 0.0 x10^3/uL (0.0-0.2) Sodium Level 138 mmol/L (136-145) Potassium Level 5.1 mmol/L (3.5-5.1) Chloride Level 101 mmol/L (98-107) Carbon Dioxide Level 23 mmol/L (21-32) Anion Gap 14 (6-14) Blood Urea Nitrogen 70 mg/dL (8-26) Creatinine 5.7 mg/dL (0.7-1.3) Estimated GFR (Cockcroft-Gault) 10.1 Glucose Level 93 mg/dL (70-99) Calcium Level 9.4 mg/dL (8.5-10.1) Phosphorus Level 5.1 mg/dL (2.6-4.7) Magnesium Level 1.8 mg/dL (1.8-2.4) Albumin 2.5 g/dL (3.4-5.0) Test 11/18/18 10:30 Glucose (Fingerstick) 85 mg/dL (70-99) Microbiology 11/16/18 Blood Culture - Preliminary, Resulted NO GROWTH AFTER 1 DAY Medications Current Medications Ondansetron HCl (Zofran) 4 mg PRN Q8HRS PRN IV NAUSEA/VOMITING Last ad ministered on 11/15/18 12:26; Start 11/15/18 at 12:15; Stop 11/16/18 at 12:14; Status DC Morphine Sulfate (Morphine Sulfate) 2 mg PRN Q2HR PRN IV PAIN Last administered on 11/15/18 12:26; Start 11/15/18 at 12:15; Stop 11/16/18 at 12:14; Status DC Sodium Chloride 1,000 ml @ 100 mls/hr Q10H IV Last administered on 11/15/18 12:25; Start 11/15/18 at 12:05; Stop 11/15/18 at 22:04; Status DC Heparin Sodium (Porcine) (Heparin Sodium) 5,000 unit Q12HR SQ Last administered on 11/18/18 10:10; Start 11/15/18 at 15:00 Amlodipine Besylate (Norvasc) 5 mg DAILY PO Last administered on 11/18/18 09:23; Start 11/16/18 at 09:00 Atenolol (Tenormin) 50 mg DAILY PO Last administered on 11/18/18 09:22; Start 11/16/18 at 09:00 Atorvastatin Calcium (Lipitor) 10 mg QHS PO Last administered on 11/17/18 20:15; Start 11/15/18 at 21:00 Ergocalciferol (Vitamin D2) 50,000 unit WEEKLY PO Last administered on 11/16/18 08:15; Start 11/16/18 at 09:00 Folic Acid (Folic Acid) 1 mg DAILY PO Last administered on 11/18/18 09:22; Start 11/16/18 at 09:00 Albuterol/ Ipratropium (Duoneb) 3 ml RTQID NEB Last administered on 11/16/18 07:47; Start 11/15/18 at 16:00; Stop 11/16/18 at 11:33; Status DC Oxycodone/ Acetaminophen (Percocet 10/325) 1 tab PRN Q6HRS PRN PO PAIN Last administered on 11/18/18 10:48; Start 11/15/18 at 15:00 Pantoprazole Sodium (Protonix) 40 mg DAILYAC PO Last administered on 11/18/18 09:22; Start 11/16/18 at 07:30 Sodium Chloride 1,000 ml @ 100 mls/hr Q10H IV Last administered on 11/17/18 08:51; Start 11/16/18 at 11:15; Stop 11/17/18 at 16:17; Status DC Docusate Sodium (Colace) 100 mg BID PO Last administered on 11/18/18 09:22; Start 11/16/18 at 11:15 Insulin Human Lispro (HumaLOG) 0-5 UNITS TIDWMEALS SQ Last administered on 11/16/18 11:37; Start 11/16/18 at 12:00 Dextrose (Dextrose 50%-Water Syringe) 12.5 gm PRN Q15MIN PRN IV SEE COMMENTS; Start 11/16/18 at 11:30 Albuterol Sulfate (Ventolin Neb Soln) 2.5 mg PRN Q6HRS PRN NEB SHORTNESS OF BREATH Last administered on 11/17/18 07:10; Start 11/16/18 at 11:45 Magnesium Sulfate 50 ml @ 25 mls/hr PRN DAILY PRN IV for Mag < 1.7 on am labs; Start 11/16/18 at 12:00 Albumin Human 100 ml @ 100 mls/hr TID IV Last administered on 4/29/19at 09:25; Start 11/16/18 at 14:00; Stop 11/18/18 at 09:59; Status DC Haloperidol (Haldol) 5 mg PRN Q12HR PRN PO AGITATION Last administered on 11/17/18at 03:51; Start 11/16/18 at 20:30 Hydroxyzine HCl (Atarax) 10 mg PRN Q6HRS PRN PO ANXIETY/AGITATION Last administered on 11/17/18at 20:15; Start 11/16/18 at 20:30 Furosemide (Lasix) 40 mg BID92 IVP Last administered on 11/18/18at 09:24; Start 11/17/18 at 09:00 Active Scripts Active Duoneb 0.5-3(2.5) Mg/3 Ml (Albuterol/Ipratropium) 3 Ml Ampul.neb 3 Ml NEB RTQID 30 Days Reported Metformin Hcl 1,000 Mg Tablet 1,000 Mg PO BIDWMEALS Flonase Allergy Relief (Fluticasone Propionate) 9.9 Ml [place].susp 2 Sprays NS DAILY Aspirin 81 Mg Tab.chew 1 Tab PO DAILY Percocet 10-325 Mg Tablet (Oxycodone/Acetaminophen) 1 Each Tablet 1 Tab PO PRN Q6HRS PRN Folic Acid 1 Mg Tablet 1 Tab PO DAILY Atenolol 50 Mg Tablet 1 Tab PO DAILY Omeprazole 20 Mg Tablet.dr 1 Tab PO DAILY Atorvastatin Calcium 10 Mg Tablet 1 Tab PO DAILY Amlodipine Besylate 5 Mg Tablet 5 Mg PO DAILY Lisinopril 40 Mg Tablet 1 Tab PO DAILY Vitamin D2 (Ergocalciferol (Vitamin D2)) 50,000 Unit Capsule 1 Cap PO WEEKLY Vitals/I & O Vital Sign - Last 24 Hours 11/17/18 11/17/18 11/17/18 11/17/18 15:10 16:28 17:31 18:41 Temp 98.8 98.3 98.9 99.2 98.8 98.3 98.9 99.2 Pulse 94 92 93 97 Resp 22 B/P (MAP) 105/85 (92) 130/67 129/57 134/61 Pulse Ox 97 O2 Delivery Room Air 11/17/18 11/17/18 11/17/18 11/17/18 19:34 20:00 20:15 21:54 Temp 99.2 99.2 Pulse 97 Resp 22 18 B/P (MAP) 134/61 (85) Pulse Ox 95 95 95 O2 Delivery Room Air Nasal Cannula Nasal Cannula O2 Flow Rate 2.0 2.0 11/17/18 11/18/18 11/18/18 11/18/18 23:09 03:23 07:00 08:00 Temp 99.3 99.3 99.3 99.3 Pulse 88 75 89 Resp 20 16 B/P (MAP) 132/65 (87) 125/60 (81) Pulse Ox 96 100 O2 Delivery Room Air Nasal Cannula Nasal Cannula O2 Flow Rate 1.0 2.0 11/18/18 11/18/18 11/18/18 11/18/18 09:22 09:23 09:48 10:48 Pulse 89 89 Resp 19 17 B/P (MAP) 125/60 125/60 O2 Delivery Nasal Cannula Nasal Cannula O2 Flow Rate 3.0 2.0 11/18/18 11/18/18 11:00 11:48 Temp 99.2 99.2 Pulse 83 Resp 18 17 B/P (MAP) 123/81 (95) Pulse Ox 99 O2 Delivery Nasal Cannula Nasal Cannula O2 Flow Rate 1.5 2.0 Intake and Output 11/17/18 11/17/18 11/18/18 15:00 23:00 07:00 Intake Total 400 ml 714 ml 0 ml Output Total 2 ml 150 ml Balance 398 ml 564 ml 0 ml ANDERSON MANCILLA MD Nov 18, 2018 13:24
[2018-11-18] MEDS ORDERED: MORPHINE SULFATE 2 MG/ML VIAL. IV PRN (13:30)
[2018-11-18] MEDS ORDERED: MORPHINE SULFATE 4 MG/ML VIAL. IV PRN (13:30)
[2018-11-18 14:15] LABS: C3 COMPLEMENT 124 mg/dL (82-167)
--- NOTE | 2018-11-18 14:26 | PDOC2 ---
PALLIATIVE CARE Palliative Care Note Palliative Care Consult requested by Dr. Hill/ Nicanor Quinones RN/CM to discuss goals of care. Medical Assessment per medical record 1. Acute renal failure 2. stage IV lung cancer 3. metabolic encephalopathy 4. HTN 5. DM2 6. COPD Patient sitting up in chair. Lethargic--unable to complete sentences. Confused at times. Denies pain or SOB. Spoke with . Keila is able to accurately verbalize medical condition. Discussed Code Status: States he has said he never wanted to be kept alive on machine. Discussed risks and benefits of resuscitation. Keila request DNR/DNI. Family meeting tomorrow after Keila contact family members for time available. Lakeshia will call Dr. Cintron for DNR/DNI order. TREV BEAUCHAMP Nov 18, 2018 14:26
[2018-11-18 16:00] VITALS: BP 114/62
--- NOTE | 2018-11-18 16:17 | PDOC ---
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, mediastinal subpectoral epicardial retrocrural and upper retroperitoneal lymphadenopathy diagnosed on 05/01/2018 ROS - confused Objective Objective Vital Signs Date Time Temp Pulse Resp B/P (MAP) Pulse Ox O2 Delivery O2 Flow Rate FiO2 11/18/18 11:48 17 Nasal Cannula 2.0 11/18/18 11:00 99.2 83 123/81 (95) 99 99.2 Intake and Output 11/18/18 06:59 Intake Total 1114 ml Output Total 152 ml Balance 962 ml Intake Oral 700 ml IV Total 100 ml Blood Product IV Normal Saline Flush 314 ml Output Urine Total 150 ml Urine/Stool Mix 2 ml # Voids 2 # Bowel Movements 1 Physical Exam Heart: Normal S1, Normal S2 General: Alert, No acute distress Neuro: Normal speech Psych/Mental Status: Mental status NL Assessment Assessment Problems Medical Problems: (1) Acute renal failure Status: Acute IMPRESSION AND PLAN: 1. 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 EGFR, ROS1, BRAF, PD-L1, ALK are all negative. He received chemotherapy with pemetrexed, carboplatin and Keytruda from 06/11/2018 and he received fourth cycle on 08/15/2018 and subsequently discontinued due to disease progression. Docetaxel chemotherapy was initiated on 09/13/2018 and he received cycle #3 on 10/25/2018. PET scan on 11/07/2018 revealed overall mixed response with improving lesions predominating the worsening lesions. Further chemotherapy will be deferred because of acute renal failure. 2. Acute renal failure. Creatinine was normal at 1.12 on 10/24/2018. Creatinine is 5.7 on 11/15/2018. I d/w Nephrology who felt that he is not a candidate for immunosuppressive therapy and hence a kidney bx may not be meaningful. I agree, that in the setting of stage IV NSCLC and poor prognosis, palliative ca re would be in the patient's best interest. I recommended against renal bx and to pursue with palliative care and hospice. Pt is confused, family will think about it. 3. Anemia due to malignancy. Hemoglobin is worse. Continue to monitor. 4. Thrombocytosis due to malignancy. 5. Pedal edema due to hypoalbuminemia and renal failure. Consult Nephrology. I discussed in detail with the patient and his . Comment Review of Relevant I have reviewed the following items vanessa (where applicable) has been applied. Labs Laboratory Tests Test 11/16/18 16:45 11/16/18 20:23 11/17/18 07:09 11/17/18 11:36 Glucose (Fingerstick) 122 mg/dL (70-99) 116 mg/dL (70-99) 98 mg/dL (70-99) 114 mg/dL (70-99) Test 11/17/18 12:05 11/17/18 16:41 11/17/18 20:22 11/18/18 05:20 White Blood Count 13.0 x10^3/uL (4.0-11.0) 15.0 x10^3/uL (4.0-11.0) Red Blood Count 2.32 x10^6/uL (4.30-5.70) 2.69 x10^6/uL (4.30-5.70) Hemoglobin 6.2 g/dL (13.0-17.5) 7.4 g/dL (13.0-17.5) Hematocrit 20.3 % (39.0-53.0) 23.5 % (39.0-53.0) Mean Corpuscular Volume 88 fL (79-100) 87 fL (79-100) Mean Corpuscular Hemoglobin 27 pg (25-35) 28 pg (25-35) Mean Corpuscular Hemoglobin Concent 31 g/dL (31-37) 32 g/dL (31-37) Red Cell Distribution Width 19.9 % (11.5-14.5) 19.0 % (11.5-14.5) Platelet Count 487 x10^3/uL (140-400) 475 x10^3/uL (140-400) Prothrombin Time 15.6 SEC (11.7-14.0) Prothromb Time International Ratio 1.3 (0.8-1.1) Activated Partial Thromboplast Time 36 SEC (24-38) Sodium Level 137 mmol/L (136-145) 138 mmol/L (136-145) Potassium Level 5.2 mmol/L (3.5-5.1) 5.1 mmol/L (3.5-5.1) Chloride Level 101 mmol/L (98-107) 101 mmol/L (98-107) Carbon Dioxide Level 24 mmol/L (21-32) 23 mmol/L (21-32) Anion Gap 12 (6-14) 14 (6-14) Blood Urea Nitrogen 71 mg/dL (8-26) 70 mg/dL (8-26) Creatinine 5.6 mg/dL (0.7-1.3) 5.7 mg/dL (0.7-1.3) Estimated GFR (Cockcroft-Gault) 10.3 10.1 Glucose Level 124 mg/dL (70-99) 93 mg/dL (70-99) Calcium Level 8.6 mg/dL (8.5-10.1) 9.4 mg/dL (8.5-10.1) Phosphorus Level 4.7 mg/dL (2.6-4.7) 5.1 mg/dL (2.6-4.7) Magnesium Level 1.8 mg/dL (1.8-2.4) 1.8 mg/dL (1.8-2.4) Albumin 2.5 g/dL (3.4-5.0) 2.5 g/dL (3.4-5.0) 25-Hydroxy Vitamin D Total 41.9 ng/mL (30-100) Complement C3 124 mg/dL (82-167) Complement C4 23 mg/dL (14-44) Glucose (Fingerstick) 125 mg/dL (70-99) 132 mg/dL (70-99) Neutrophils (%) (Auto) 79 % (31-73) Lymphocytes (%) (Auto) 10 % (24-48) Monocytes (%) (Auto) 10 % (0-9) Eosinophils (%) (Auto) 1 % (0-3) Basophils (%) (Auto) 0 % (0-3) Neutrophils # (Auto) 11.9 x10^3uL (1.8-7.7) Lymphocytes # (Auto) 1.5 x10^3/uL (1.0-4.8) Monocytes # (Auto) 1.5 x10^3/uL (0.0-1.1) Eosinophils # (Auto) 0.1 x10^3/uL (0.0-0.7) Basophils # (Auto) 0.0 x10^3/uL (0.0-0.2) Test 11/18/18 08:02 11/18/18 10:30 Glucose (Fingerstick) 96 mg/dL (70-99) 85 mg/dL (70-99) Laboratory Tests Test 11/17/18 16:41 11/17/18 20:22 11/18/18 05:20 11/18/18 08:02 Glucose (Fingerstick) 125 mg/dL (70-99) 132 mg/dL (70-99) 96 mg/dL (70-99) White Blood Count 15.0 x10^3/uL (4.0-11.0) Red Blood Count 2.69 x10^6/uL (4.30-5.70) Hemoglobin 7.4 g/dL (13.0-17.5) Hematocrit 23.5 % (39.0-53.0) Mean Corpuscular Volume 87 fL (79-100) Mean Corpuscular Hemoglobin 28 pg (25-35) Mean Corpuscular Hemoglobin Concent 32 g/dL (31-37) Red Cell Distribution Width 19.0 % (11.5-14.5) Platelet Count 475 x10^3/uL (140-400) Neutrophils (%) (Auto) 79 % (31-73) Lymphocytes (%) (Auto) 10 % (24-48) Monocytes (%) (Auto) 10 % (0-9) Eosinophils (%) (Auto) 1 % (0-3) Basophils (%) (Auto) 0 % (0-3) Neutrophils # (Auto) 11.9 x10^3uL (1.8-7.7) Lymphocytes # (Auto) 1.5 x10^3/uL (1.0-4.8) Monocytes # (Auto) 1.5 x10^3/uL (0.0-1.1) Eosinophils # (Auto) 0.1 x10^3/uL (0.0-0.7) Basophils # (Auto) 0.0 x10^3/uL (0.0-0.2) Sodium Level 138 mmol/L (136-145) Potassium Level 5.1 mmol/L (3.5-5.1) Chloride Level 101 mmol/L (98-107) Carbon Dioxide Level 23 mmol/L (21-32) Anion Gap 14 (6-14) Blood Urea Nitrogen 70 mg/dL (8-26) Creatinine 5.7 mg/dL (0.7-1.3) Estimated GFR (Cockcroft-Gault) 10.1 Glucose Level 93 mg/dL (70-99) Calcium Level 9.4 mg/dL (8.5-10.1) Phosphorus Level 5.1 mg/dL (2.6-4.7) Magnesium Level 1.8 mg/dL (1.8-2.4) Albumin 2.5 g/dL (3.4-5.0) Test 11/18/18 10:30 Glucose (Fingerstick) 85 mg/dL (70-99) Microbiology 11/16/18 Blood Culture - Preliminary, Resulted NO GROWTH AFTER 2 DAYS Medications Current Medications Ondansetron HCl (Zofran) 4 mg PRN Q8HRS PRN IV NAUSEA/VOMITING Last administered on 11/15/18 12:26; Start 11/15/18 at 12:15; Stop 11/16/18 at 12:14; Status DC Morphine Sulfate (Morphine Sulfate) 2 mg PRN Q2HR PRN IV PAIN Last administered on 11/15/18 12:26; Start 11/15/18 at 12:15; Stop 11/16/18 at 12:14; Status DC Sodium Chloride 1,000 ml @ 100 mls/hr Q10H IV Last administered on 11/15/18 12:25; Start 11/15/18 at 12:05; Stop 11/15/18 at 22:04; Status DC Heparin Sodium (Porcine) (Heparin Sodium) 5,000 unit Q12HR SQ Last administered on 11/18/18at 10:10; Start 11/15/18 at 15:00 Amlodipine Besylate (Norvasc) 5 mg DAILY PO Last administered on 11/18/18 09:23; Start 11/16/18 at 09:00 Atenolol (Tenormin) 50 mg DAILY PO Last administered on 11/18/18 09:22; Start 11/16/18 at 09:00 Atorvastatin Calcium (Lipitor) 10 mg QHS PO Last administered on 11/17/18at 20:15; Start 11/15/18 at 21:00 Ergocalciferol (Vitamin D2) 50,000 unit WEEKLY PO Last administered on 11/16/18 08:15; Start 11/16/18 at 09:00 Folic Acid (Folic Acid) 1 mg DAILY PO Last administered on 11/18/18 09:22; Start 11/16/18 at 09:00 Albuterol/ Ipratropium (Duoneb) 3 ml RTQID NEB Last administered on 11/16/18at 07:47; Start 11/15/18 at 16:00; Stop 11/16/18 at 11:33; Status DC Oxycodone/ Acetaminophen (Percocet 10/325) 1 tab PRN Q6HRS PRN PO PAIN Last administered on 11/18/18 10:48; Start 11/15/18 at 15:00 Pantoprazole Sodium (Protonix) 40 mg DAILYAC PO Last administered on 11/18/18 09:22; Start 11/16/18 at 07:30 Sodium Chloride 1,000 ml @ 100 mls/hr Q10H IV Last administered on 11/17/18 08:51; Start 11/16/18 at 11:15; Stop 11/17/18 at 16:17; Status DC Docusate Sodium (Colace) 100 mg BID PO Last administered on 11/18/18 09:22; Start 11/16/18 at 11:15 Insulin Human Lispro (HumaLOG) 0-5 UNITS TIDWMEALS SQ Last administered on 11/16/18at 11:37; Start 11/16/18 at 12:00 Dextrose (Dextrose 50%-Water Syringe) 12.5 gm PRN Q15MIN PRN IV SEE COMMENTS; Start 11/16/18 at 11:30 Albuterol Sulfate (Ventolin Neb Soln) 2.5 mg PRN Q6HRS PRN NEB SHORTNESS OF BREATH Last administered on 11/17/18at 07:10; Start 11/16/18 at 11:45 Magnesium Sulfate 50 ml @ 25 mls/hr PRN DAILY PRN IV for Mag < 1.7 on am labs; Start 11/16/18 at 12:00 Albumin Human 100 ml @ 100 mls/hr TID IV Last administered on 11/18/18at 09:25; Start 11/16/18 at 14:00; Stop 11/18/18 at 09:59; Status DC Haloperidol (Haldol) 5 mg PRN Q12HR PRN PO AGITATION Last administered on 11/17/18at 03:51; Start 11/16/18 at 20:30 Hydroxyzine HCl (Atarax) 10 mg PRN Q6HRS PRN PO ANXIETY/AGITATION Last ad ministered on 11/17/18at 20:15; Start 11/16/18 at 20:30 Furosemide (Lasix) 40 mg BID92 IVP Last administered on 11/18/18at 14:07; Start 11/17/18 at 09:00 Morphine Sulfate (Morphine Sulfate) 2 mg PRN Q2HR PRN IV PAIN; Start 11/18/18 at 13:30 Morphine Sulfate (Morphine Sulfate) 4 mg PRN Q2HR PRN IV PAIN; Start 11/18/18 at 13:30 Active Scripts Active Duoneb 0.5-3(2.5) Mg/3 Ml (Albuterol/Ipratropium) 3 Ml Ampul.neb 3 Ml NEB RTQID 30 Days Reported Metformin Hcl 1,000 Mg Tablet 1,000 Mg PO BIDWMEALS Flonase Allergy Relief (Fluticasone Propionate) 9.9 Ml [place].susp 2 Sprays NS DAILY Aspirin 81 Mg Tab.chew 1 Tab PO DAILY Percocet 10-325 Mg Tablet (Oxycodone/Acetaminophen) 1 Each Tablet 1 Tab PO PRN Q6HRS PRN Folic Acid 1 Mg Tablet 1 Tab PO DAILY Atenolol 50 Mg Tablet 1 Tab PO DAILY Omeprazole 20 Mg Tablet. 1 Tab PO DAILY Atorvastatin Calcium 10 Mg Tablet 1 Tab PO DAILY Amlodipine Besylate 5 Mg Tablet 5 Mg PO DAILY Lisinopril 40 Mg Tablet 1 Tab PO DAILY Vitamin D2 (Ergocalciferol (Vitamin D2)) 50,000 Unit Capsule 1 Cap PO WEEKLY Vitals/I & O Vital Sign - Last 24 Hours 11/17/18 11/17/18 11/17/18 11/17/18 16:28 17:31 18:41 19:34 Temp 98.3 98.9 99.2 99.2 98.3 98.9 99.2 99.2 Pulse 92 93 97 97 Resp 24 22 22 22 B/P (MAP) 130/67 129/57 134/61 134/61 (85) Pulse Ox 95 O2 Delivery Room Air 11/17/18 11/17/18 11/17/18 11/17/18 20:00 20:15 21:54 23:09 Temp 99.3 99.3 Pulse 88 Resp 18 20 B/P (MAP) 132/65 (87) Pulse Ox 95 95 96 O2 Delivery Nasal Cannula Nasal Cannula Room Air O2 Flow Rate 2.0 2.0 11/18/18 11/18/18 11/18/18 11/18/18 03:23 07:00 08:00 09:22 Temp 99.3 99.3 Pulse 75 89 89 Resp 16 B/P (MAP) 125/60 (81) 125/60 Pulse Ox 100 O2 Delivery Nasal Cannula Nasal Cannula O2 Flow Rate 1.0 2.0 11/18/18 11/18/18 11/18/18 11/18/18 09:23 09:48 10:48 11:00 Temp 99.2 99.2 Pulse 89 83 Resp 19 17 18 B/P (MAP) 125/60 123/81 (95) Pulse Ox 99 O2 Delivery Nasal Cannula Nasal Cannula Nasal Cannula O2 Flow Rate 3.0 2.0 1.5 11/18/18 11:48 Resp 17 O2 Delivery Nasal Cannula O2 Flow Rate 2.0 Intake and Output 11/17/18 11/17/18 11/18/18 14:59 22:59 06:59 Intake Total 400 ml 714 ml 0 ml Output Total 2 ml 150 ml Balance 398 ml 564 ml 0 ml MYNOR MILLER MD Nov 18, 2018 16:17
--- NOTE | 2018-11-18 18:11 | NUR ---
Pt agitated and pulling on moss. Moss was discontinued prior to pt pulling it out. No bleeding noted. 400cc urine out pt noted in cath bag.
[2018-11-18 20:17] VITALS: BP 126/54
[2018-11-18] MEDS: ATORVASTATIN CALCIUM 10 MG TABLET. PO SCH (21:28)
[2018-11-18 23:07] VITALS: BP 95/55
[2018-11-19 03:08] VITALS: BP 122/70
[2018-11-19 07:00] VITALS: BP 112/63
[2018-11-19] MEDS: INSULIN LISPRO 300 UNITS/3 ML INSULN.PEN. SQ SCH ×3 (08:00→17:00)
[2018-11-19] MEDS: amLODIPine BESYLATE 5 MG TABLET PO SCH (08:49)
[2018-11-19] MEDS: FOLIC ACID 1 MG TABLET. PO SCH (08:49)
[2018-11-19] MEDS: ATENOLOL 50 MG TABLET. PO SCH (08:50)
[2018-11-19] MEDS: PANTOPRAZOLE 40 MG TABLET.DR. PO SCH (08:50)
[2018-11-19] MEDS: DOCUSATE SODIUM 100 MG CAPSULE. PO SCH ×2 (08:50→20:57)
[2018-11-19] MEDS: FUROSEMIDE 40 MG/4 ML VIAL. IVP SCH ×2 (08:51→14:32)
--- NOTE | 2018-11-19 08:56 | PDOC ---
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 EGFR, ROS1, BRAF, PD-L1, ALK are all negative. He received chemotherapy with pemetrexed, carboplatin and Keytruda from 06/11/2018 and he received fourth cycle on 08/15/2018 and subsequently discontinued due to disease progression. Docetaxel chemotherapy was initiated on 09/13/2018 and he received cycle #3 on 10/25/2018. PET scan on 11/07/2018 revealed overall mixed response with improving lesions predominating the worsening lesions. Further chemotherapy will be deferred because of acute renal failure. 2. Acute renal failure. Creatinine was normal at 1.12 on 10/24/2018. Creatinine is 5.7 on 11/15/2018. I d/w Nephrology who felt that he is not a candidate for immunosuppressive therapy if he has membranous glomerulonephritis and hence a kidney bx may not be mean ingful. I agree, that in the setting of stage IV NSCLC and poor prognosis, palliative care would be in the patient's best interest. I recommended against renal bx and to pursue with palliative care and hospice. Pt is confused, family will think about it. Appreciate palliative care consult. 3. Anemia due to malignancy. Hemoglobin is worse. Continue to monitor. 4. Thrombocytosis due to malignancy. 5. Pedal edema due to hypoalbuminemia and renal failure. Consult Nephrology. Comment Review of Relevant I have reviewed the following items vanessa (where applicable) has been applied. Labs Laboratory Tests Test 11/17/18 11:36 11/17/18 12:05 11/17/18 16:41 11/17/18 20:22 Glucose (Fingerstick) 114 mg/dL (70-99) 125 mg/dL (70-99) 132 mg/dL (70-99) White Blood Count 13.0 x10^3/uL (4.0-11.0) Red Blood Count 2.32 x10^6/uL (4.30-5.70) Hemoglobin 6.2 g/dL (13.0-17.5) Hematocrit 20.3 % (39.0-53.0) Mean Corpuscular Volume 88 fL (79-100) Mean Corpuscular Hemoglobin 27 pg (25-35) Mean Corpuscular Hemoglobin Concent 31 g/dL (31-37) Red Cell Distribution Width 19.9 % (11.5-14.5) Platelet Count 487 x10^3/uL (140-400) Prothrombin Time 15.6 SEC (11.7-14.0) Prothromb Time International Ratio 1.3 (0.8-1.1) Activated Partial Thromboplast Time 36 SEC (24-38) Sodium Level 137 mmol/L (136-145) Potassium Level 5.2 mmol/L (3.5-5.1) Chloride Level 101 mmol/L (98-107) Carbon Dioxide Level 24 mmol/L (21-32) Anion Gap 12 (6-14) Blood Urea Nitrogen 71 mg/dL (8-26) Creatinine 5.6 mg/dL (0.7-1.3) Estimated GFR (Cockcroft-Gault) 10.3 Glucose Level 124 mg/dL (70-99) Calcium Level 8.6 mg/dL (8.5-10.1) Phosphorus Level 4.7 mg/dL (2.6-4.7) Magnesium Level 1.8 mg/dL (1.8-2.4) Albumin 2.5 g/dL (3.4-5.0) 25-Hydroxy Vitamin D Total 41.9 ng/mL (30-100) Complement C3 124 mg/dL (82-167) Complement C4 23 mg/dL (14-44) Test 11/18/18 05:20 11/18/18 08:02 11/18/18 10:30 11/18/18 16:33 White Blood Count 15.0 x10^3/uL (4.0-11.0) Red Blood Count 2.69 x10^6/uL (4.30-5.70) Hemoglobin 7.4 g/dL (13.0-17.5) Hematocrit 23.5 % (39.0-53.0) Mean Corpuscular Volume 87 fL (79-100) Mean Corpuscular Hemoglobin 28 pg (25-35) Mean Corpuscular Hemoglobin Concent 32 g/dL (31-37) Red Cell Distribution Width 19.0 % (11.5-14.5) Platelet Count 475 x10^3/uL (140-400) Neutrophils (%) (Auto) 79 % (31-73) Lymphocytes (%) (Auto) 10 % (24-48) Monocytes (%) (Auto) 10 % (0-9) Eosinophils (%) (Auto) 1 % (0-3) Basophils (%) (Auto) 0 % (0-3) Neutrophils # (Auto) 11.9 x10^3uL (1.8-7.7) Lymphocytes # (Auto) 1.5 x10^3/uL (1.0-4.8) Monocytes # (Auto) 1.5 x10^3/uL (0.0-1.1) Eosinophils # (Auto) 0.1 x10^3/uL (0.0-0.7) Basophils # (Auto) 0.0 x10^3/uL (0.0-0.2) Sodium Level 138 mmol/L (136-145) Potassium Level 5.1 mmol/L (3.5-5.1) Chloride Level 101 mmol/L (98-107) Carbon Dioxide Level 23 mmol/L (21-32) Anion Gap 14 (6-14) Blood Urea Nitrogen 70 mg/dL (8-26) Creatinine 5.7 mg/dL (0.7-1.3) Estimated GFR (Cockcroft-Gault) 10.1 Glucose Level 93 mg/dL (70-99) Calcium Level 9.4 mg/dL (8.5-10.1) Phosphorus Level 5.1 mg/dL (2.6-4.7) Magnesium Level 1.8 mg/dL (1.8-2.4) Albumin 2.5 g/dL (3.4-5.0) Glucose (Fingerstick) 96 mg/dL (70-99) 85 mg/dL (70-99) 179 mg/dL (70-99) Test 11/18/18 20:24 11/19/18 06:59 Glucose (Fingerstick) 156 mg/dL (70-99) 122 mg/dL (70-99) Laboratory Tests Test 11/18/18 10:30 11/18/18 16:33 11/18/18 20:24 11/19/18 06:59 Glucose (Fingerstick) 85 mg/dL (70-99) 179 mg/dL (70-99) 156 mg/dL (70-99) 122 mg/dL (70-99) Microbiology 11/16/18 Blood Culture - Preliminary, Resulted NO GROWTH AFTER 2 DAYS Medications Current Medications Ondansetron HCl (Zofran) 4 mg PRN Q8HRS PRN IV NAUSEA/VOMITING Last administered on 11/15/18 12:26; Start 11/15/18 at 12:15; Stop 11/16/18 at 12:14; Status DC Morphine Sulfate (Morphine Sulfate) 2 mg PRN Q2HR PRN IV PAIN Last administered on 11/15/18 12:26; Start 11/15/18 at 12:15; Stop 11/16/18 at 12:14; Status DC Sodium Chloride 1,000 ml @ 100 mls/hr Q10H IV Last administered on 11/15/18 12:25; Start 11/15/18 at 12:05; Stop 11/15/18 at 22:04; Status DC Heparin Sodium (Porcine) (Heparin Sodium) 5,000 unit Q12HR SQ Last administered on 11/18/18at 21:32; Start 11/15/18 at 15:00 Amlodipine Besylate (Norvasc) 5 mg DAILY PO Last administered on 11/18/18 09:23; Start 11/16/18 at 09:00 Atenolol (Tenormin) 50 mg DAILY PO Last administered on 11/18/18 09:22; Start 11/16/18 at 09:00 Atorvastatin Calcium (Lipitor) 10 mg QHS PO Last administered on 11/18/18 21:28; Start 11/15/18 at 21:00 Ergocalciferol (Vitamin D2) 50,000 unit WEEKLY PO Last administered on 11/16/18 08:15; Start 11/16/18 at 09:00 Folic Acid (Folic Acid) 1 mg DAILY PO Last administered on 11/18/18 09:22; Start 11/16/18 at 09:00 Albuterol/ Ipratropium (Duoneb) 3 ml RTQID NEB Last administered on 11/16/18at 07:47; Start 11/15/18 at 16:00; Stop 11/16/18 at 11:33; Status DC Oxycodone/ Acetaminophen (Percocet 10/325) 1 tab PRN Q6HRS PRN PO PAIN Last administered on 11/18/18 21:27; Start 11/15/18 at 15:00 Pantoprazole Sodium (Protonix) 40 mg DAILYAC PO Last administered on 11/18/18 09:22; Start 11/16/18 at 07:30 Sodium Chloride 1,000 ml @ 100 mls/hr Q10H IV Last administered on 11/17/18 08:51; Start 11/16/18 at 11:15; Stop 11/17/18 at 16:17; Status DC Docusate Sodium (Colace) 100 mg BID PO Last administered on 11/18/18 21:28; Start 11/16/18 at 11:15 Insulin Human Lispro (HumaLOG) 0-5 UNITS TIDWMEALS SQ Last administered on 11/18/18at 17:30; Start 11/16/18 at 12:00 Dextrose (Dextrose 50%-Water Syringe) 12.5 gm PRN Q15MIN PRN IV SEE COMMENTS; Start 11/16/18 at 11:30 Albuterol Sulfate (Ventolin Neb Soln) 2.5 mg PRN Q6HRS PRN NEB SHORTNESS OF BREATH Last administered on 11/17/18 07:10; Start 11/16/18 at 11:45 Magnesium Sulfate 50 ml @ 25 mls/hr PRN DAILY PRN IV for Mag < 1.7 on am labs; Start 11/16/18 at 12:00 Albumin Human 100 ml @ 100 mls/hr TID IV Last administered on 11/18/18 09:25; Start 11/16/18 at 14:00; Stop 11/18/18 at 09:59; Status DC Haloperidol (Haldol) 5 mg PRN Q12HR PRN PO AGITATION Last administered on 11/17/18at 03:51; Start 11/16/18 at 20:30 Hydroxyzine HCl (Atarax) 10 mg PRN Q6HRS PRN PO ANXIETY/AGITATION Last administered on 11/17/18at 20:15; Start 11/16/18 at 20:30 Furosemide (Lasix) 40 mg BID92 IVP Last administered on 11/18/18at 14:07; Start 11/17/18 at 09:00 Morphine Sulfate (Morphine Sulfate) 2 mg PRN Q2HR PRN IV PAIN; Start 11/18/18 at 13:30 Morphine Sulfate (Morphine Sulfate) 4 mg PRN Q2HR PRN IV PAIN; Start 11/18/18 at 13:30 Active Scripts Active Duoneb 0.5-3(2.5) Mg/3 Ml (Albuterol/Ipratropium) 3 Ml Ampul.neb 3 Ml NEB RTQID 30 Days Reported Metformin Hcl 1,000 Mg Tablet 1,000 Mg PO BIDWMEALS Flonase Allergy Relief (Fluticasone Propionate) 9.9 Ml [place].susp 2 Sprays NS DAILY Aspirin 81 Mg Tab.chew 1 Tab PO DAILY Percocet 10-325 Mg Tablet (Oxycodone/Acetaminophen) 1 Each Tablet 1 Tab PO PRN Q6HRS PRN Folic Acid 1 Mg Tablet 1 Tab PO DAILY Atenolol 50 Mg Tablet 1 Tab PO DAILY Omeprazole 20 Mg Tablet.dr 1 Tab PO DAILY Atorvastatin Calcium 10 Mg Tablet 1 Tab PO DAILY Amlodipine Besylate 5 Mg Tablet 5 Mg PO DAILY Lisinopril 40 Mg Tablet 1 Tab PO DAILY Vitamin D2 (Ergocalciferol (Vitamin D2)) 50,000 Unit Capsule 1 Cap PO WEEKLY Vitals/I & O Vital Sign - Last 24 Hours 11/18/18 11/18/18 11/18/18 11/18/18 09:22 09:23 09:48 10:48 Pulse 89 89 Resp 19 17 B/P (MAP) 125/60 125/60 O2 Delivery Nasal Cannula Nasal Cannula O2 Flow Rate 3.0 2.0 11/18/18 11/18/18 11/18/18 11/18/18 11:00 16:00 19:56 20:17 Temp 99.2 98.8 99.5 99.2 98.8 99.5 Pulse 83 75 83 Resp 18 16 20 B/P (MAP) 123/81 (95) 114/62 (79) 126/54 (78) Pulse Ox 99 97 100 O2 Delivery Nasal Cannula Room Air Nasal Cannula Nasal Cannula O2 Flow Rate 1.5 2.0 1.5 11/18/18 11/18/18 11/18/18 11/19/18 21:27 22:27 23:07 03:08 Temp 99.1 98.1 99.1 98.1 Pulse 80 80 Resp 20 20 20 20 B/P (MAP) 95/55 (68) 122/70 (87) Pulse Ox 97 97 97 100 O2 Delivery Room Air Nasal Cannula Room Air Nasal Cannula O2 Flow Rate 3.0 1.5 11/19/18 07:00 Temp 98.3 98.3 Pulse 78 Resp 20 B/P (MAP) 112/63 (79) Pulse Ox 100 O2 Delivery Nasal Cannula O2 Flow Rate 1.5 Intake and Output 11/18/18 11/18/18 11/19/18 15:00 23:00 07:00 Intake Total 120 ml 300 ml 370 ml Output Total 400 ml Balance 120 ml -100 ml 370 ml MYNOR MILLER MD Nov 19, 2018 08:56
[2018-11-19] MEDS: oxyCODONE/APAP 10/325 1 TAB TABLET PO PRN ×3 (09:01→23:08)
--- NOTE | 2018-11-19 09:20 | SNU/HH DC ---
DISCHARGE ORDERS DISCHARGE INFORMATION: FINAL DIAGNOSIS Problems Medical Problems: (1) Acute renal failure Status: Acute CONDITION ON DISCHARGE: Stable CODE STATUS: Code Status: DNR/DNI HOSPICE: HOSPICE: Yes HOSPICE EVAL & TREAT: Yes POST DISCHARGE ORDERS: ACTIVITY ORDERS: Activity as tolerated WEIGHT BEARING STATUS: As tolerated DIET AFTER DISCHARGE: Regular TREATMENT/EQUIPMENT ORDERS: ADAPTIVE EQUIPMENT NEEDED: None Physical Therapy For: Safety Occupational Therapy For: ADL's DISCHARGE MEDICATIONS: Home Meds Active Scripts Ipratropium/Albuterol Sulfate (DUONEB 0.5-3(2.5) MG/3 ML) 3 Ml Ampul.neb, 3 ML NEB RTQID for 30 Days, #120 EACH 3 Refills Prov:ANDERSON MANCILLA MD 02/13/18 Reported Medications Fluticasone Propionate (Flonase Allergy Relief) 9.9 Ml [place].susp, 2 SPRAYS NS DAILY for allergy relief , BOTTLE 11/15/18 Oxycodone/Apap 10-325 (PERCOCET 10-325 MG TABLET ) 1 Each Tablet, 1 TAB PO PRN Q6HRS PRN for PAIN, TAB 0 Refills 10/13/18 Atenolol (ATENOLOL) 50 Mg Tablet, 1 TAB PO DAILY 02/08/18 Omeprazole (OMEPRAZOLE) 20 Mg Tablet.dr, 1 TAB PO DAILY 02/08/18 Discontinued Reported Medications Metformin Hcl (METFORMIN HCL) 1,000 Mg Tablet, 1000 MG PO BIDWMEALS for blood sugar control , TAB 11/15/18 Aspirin (ASPIRIN) 81 Mg Tab.chew, 1 TAB PO DAILY for Stroke prevention , #30 TAB 3 Refills 11/15/18 Folic Acid (FOLIC ACID) 1 Mg Tablet, 1 TAB PO DAILY for SUPPLEMENT, #90 TAB 1 Refill 10/13/18 Atorvastatin Calcium (ATORVASTATIN CALCIUM) 10 Mg Tablet, 1 TAB PO DAILY 02/08/18 Amlodipine Besylate (AMLODIPINE BESYLATE) 5 Mg Tablet, 5 MG PO DAILY, TAB 02/08/18 Lisinopril (LISINOPRIL) 40 Mg Tablet, 1 TAB PO DAILY 02/08/18 Ergocalciferol (Vitamin D2) (VITAMIN D2) 50,000 Unit Capsule, 1 CAP PO WEEKLY 02/08/18 Discontinued Scripts Valacyclovir Hcl (VALACYCLOVIR) 500 Mg Tablet, 1000 MG PO BID for stomatitis for 7 Days, #28 TAB Prov:ANDERSON MANCILLA MD 10/16/18 Levofloxacin (LEVAQUIN) 750 Mg Tablet, 750 MG PO DAILY06 for hap for 7 Days, #7 TAB Prov:ANDERSON MANCILLA MD 10/16/18 ANDERSON MANCILLA MD Nov 19, 2018 09:20
[2018-11-19 09:46] LABS: ALBUMIN 2.3 g/dL (3.4-5.0); CALCIUM 9.4 mg/dL (8.5-10.1); GFR 9.5; PHOSPHORUS 5.4 mg/dL (2.6-4.7); POTASSIUM 5.1 mmol/L (3.5-5.1)
--- NOTE | 2018-11-19 12:31 | PDOC ---
SUBJECTIVE ROS reports that she is planning to take him home On Hospice But then started to talk about Dialysis for LE edema and Shortness of breath. She discussed with her , who did not particpate in the discussion She tells me , they might want to try HD OBJECTIVE Vital Signs Vital Signs Date Time Temp Pulse Resp B/P (MAP) Pulse Ox O2 Delivery O2 Flow Rate FiO2 11/19/18 11:00 99 Room Air 11/19/18 09:01 16 11/19/18 08:50 78 112/63 11/19/18 08:00 2.0 11/19/18 07:00 98.3 98.3 I & 0 Intake and Output 11/19/18 07:00 Intake Total 790 ml Output Total 400 ml Balance 390 ml Intake Oral 790 ml Output Urine Total 400 ml # Voids 1 PHYSICAL EXAM Physical Exam GEN: NAD HEEN: OM moist , O2 by NC NECK: Supple CVS: RRR RESP: No Rales, No Rhonchi,[ No Acc. Muscle Use GI: BS + ve, NO Bruit, Non Tender, Non Distended : No CVA tenderness, [No Suprapubic Tenderness, No Franz Neuro - Alert, Oriented DIAGNOSIS/ASSESSMENT Assessment & Plan Acute kidney injury: Etiology Uncertain - Creat was normal at 1.12 on 10/24/2018 up to 5.7 on 11/15/2018 Cannot r/o glomerulonephritis vs ATN vs AIN without Renal Bx Not candidate for further immunosuppression at this point Serologies C3, C4 Normal , rest pending results wants him to do HD, discussed at great length that about the risks as well poor prognosis due to Lung cancer She would like to discuss it again with her Proteinuria: Nephrotic range as above , Serologies pending result Secondary membranous nephropathy in DDx in setting of stage IV lung cancer History of stage IV lung cancer: Prognosis of the same from Dr. Swan and colleagues may help determine further course of action with regards to kidney biopsy, dialysis, quality of life v ersus proceeding with palliation and hospice Delirium:As per MS improved today Anemia:Deferred to Dr. Swan to manage in the setting of active malignancy Edema lower extremity: Have been receiving IV Albumin and Lasix Overnight decreased UOP , get bladder scan Discussed A/P-Bx, Dialysis etc with Pt , and RN Further plan as per Dr. Swan Palliative Consult Agree with Oncology, recommend Hospice COMMENT/RELEVANT DATA Meds Current Medications Medications (Trade) Dose Ordered Sig/Katherine Start Time Stop Time Status Last Admin Dose Admin Albumin Human 100 ml @ 100 mls/hr TID 11/16/18 14:00 11/18/18 09:59 DC 11/18/18 09:25 100 MLS/HR Albuterol Sulfate (Ventolin Neb Soln) 2.5 mg PRN Q6HRS PRN 11/16/18 11:45 11/17/18 07:10 2.5 MG Albuterol/ Ipratropium (Duoneb) 3 ml RTQID 11/15/18 16:00 11/16/18 11:33 DC 11/16/18 07:47 3 ML Amlodipine Besylate (Norvasc) 5 mg DAILY 11/16/18 09:00 11/19/18 08:49 5 MG Atenolol (Tenormin) 50 mg DAILY 11/16/18 09:00 11/19/18 08:50 50 MG Atorvastatin Calcium (Lipitor) 10 mg QHS 11/15/18 21:00 11/18/18 21:28 10 MG Dextrose (Dextrose 50%-Water Syringe) 12.5 gm PRN Q15MIN PRN 11/16/18 11:30 Docusate Sodium (Colace) 100 mg BID 11/16/18 11:15 11/19/18 08:50 100 MG Ergocalciferol (Vitamin D2) 50,000 unit WEEKLY 11/16/18 09:00 11/16/18 08:15 50,000 UNIT Folic Acid (Folic Acid) 1 mg DAILY 11/16/18 09:00 11/19/18 08:49 1 MG Furosemide (Lasix) 40 mg BID92 11/17/18 09:00 11/19/18 08:51 40 MG Haloperidol (Haldol) 5 mg PRN Q12HR PRN 11/16/18 20:30 11/17/18 03:51 5 MG Heparin Sodium (Porcine) (Heparin Sodium) 5,000 unit Q12HR 11/15/18 15:00 11/18/18 21:32 5,000 UNIT Hydroxyzine HCl (Atarax) 10 mg PRN Q6HRS PRN 11/16/18 20:30 11/17/18 20:15 10 MG Insulin Human Lispro (HumaLOG) 0-5 UNITS TIDWMEALS 11/16/18 12:00 11/18/18 17:30 2 UNITS Magnesium Sulfate 50 ml @ 25 mls/hr PRN DAILY PRN 11/16/18 12:00 Morphine Sulfate (Morphine Sulfate) 4 mg PRN Q2HR PRN 11/18/18 13:30 Ondansetron HCl (Zofran) 4 mg PRN Q8HRS PRN 11/15/18 12:15 11/16/18 12:14 DC 11/15/18 12:26 4 MG Oxycodone/ Acetaminophen (Percocet 10/325) 1 tab PRN Q6HRS PRN 11/15/18 15:00 11/19/18 09:01 1 TAB Pantoprazole Sodium (Protonix) 40 mg DAILYAC 11/16/18 07:30 11/19/18 08:50 40 MG Sodium Chloride 1,000 ml @ 100 mls/hr Q10H 11/16/18 11:15 11/17/18 16:17 DC 11/17/18 08:51 100 MLS/HR Lab Laboratory Tests Test 11/18/18 16:33 11/18/18 20:24 11/19/18 06:59 11/19/18 08:40 Glucose (Fingerstick) 179 mg/dL (70-99) 156 mg/dL (70-99) 122 mg/dL (70-99) Sodium Level 138 mmol/L (136-145) Potassium Level 5.1 mmol/L (3.5-5.1) Chloride Level 103 mmol/L (98-107) Carbon Dioxide Level 23 mmol/L (21-32) Anion Gap 12 (6-14) Blood Urea Nitrogen 76 mg/dL (8-26) Creatinine 6.0 mg/dL (0.7-1.3) Estimated GFR (Cockcroft-Gault) 9.5 Glucose Level 121 mg/dL (70-99) Calcium Level 9.4 mg/dL (8.5-10.1) Phosphorus Level 5.4 mg/dL (2.6-4.7) Magnesium Level 2.0 mg/dL (1.8-2.4) Albumin 2.3 g/dL (3.4-5.0) Results All relevant outside records, renal labs, imaging studies, telemetry/EKG's were reviewed. EUNICE FOSTER MD Nov 19, 2018 12:31
[2018-11-19] MEDS: HEPARIN for SUB-Q USE 5,000 UNIT/ML VIAL. SQ SCH ×2 (13:00→21:04)
--- NOTE | 2018-11-19 13:03 | PDOC2 ---
PALLIATIVE CARE Palliative Care Note Palliative Care Patient more alert/less agitated today. Wants to go home. Spoke with Keila. Discussed Hospice Services and provided names of several agencies serving her home area. She was undecided about agency--wanted to speak with daughter in law. Outside the Hospital DNR/DNI form signed. Abigail RANDHAWA assisting with brochures from several hospice agencies as well. DME needed. Hospital Bed, oxygen, BSC. Will await decision from about agency. Dr. Cintron spoke with patient and as well. Spoke with patient alone. Patient Asked "How long do I have to live?" Indicated he was not surprised at a relatively short period of time. . Wants quality time at home with family. Plan; Home with Hospice. DNR/DNI TREV BEAUCHAMP Nov 19, 2018 13:03
[2018-11-19 15:00] VITALS: BP 112/51
--- NOTE | 2018-11-19 15:56 | NUR ---
SYDNEE following pt. SW provided pt's with hospice agency options and chose [facility] hospice. Referral faxed to [facility]. Pt acceptance and admission pending. Pt's requested for a dc tomorrow to arrange home as they will be getting equipment tomorrow. Will continue to follow. RN notified.
[2018-11-19 19:00] VITALS: BP 95/47
[2018-11-19] MEDS: ATORVASTATIN CALCIUM 10 MG TABLET. PO SCH (20:57)
--- NOTE | 2018-11-19 21:19 | PDOC ---
PROGRESS NOTES Subjective Subjective Patient feeling better, and patient wish to proceed with Hospice care. Objective Objective Vital Signs Date Time Temp Pulse Resp B/P (MAP) Pulse Ox O2 Delivery O2 Flow Rate FiO2 11/19/18 19:00 99.6 68 17 95/47 (63) 96 Nasal Cannula 1.5 99.6 Intake and Output 11/19/18 07:00 Intake Total 790 ml Output Total 400 ml Balance 390 ml Intake Oral 790 ml Output Urine Total 400 ml # Voids 1 Physical Exam Abdomen: Normal bowel sounds Heart: Regular rate Extremities: Other (2+ edema) General: Alert Lungs: Other (course BS) Assessment Assessment Problems Medical Problems: (1) Acute renal failure Status: Acute 1. Acute renal failure 2. stage IV lung cancer 3. metabolic encephalopathy 4. HTN 5. DM2 6. COPD Plan Plan of Care Proceed with palliative care Comment Review of Relevant I have reviewed the following items vanessa (where applicable) has been applied. Labs Laboratory Tests Test 11/18/18 05:20 11/18/18 08:02 11/18/18 10:30 11/18/18 16:33 White Blood Count 15.0 x10^3/uL (4.0-11.0) Red Blood Count 2.69 x10^6/uL (4.30-5.70) Hemoglobin 7.4 g/dL (13.0-17.5) Hematocrit 23.5 % (39.0-53.0) Mean Corpuscular Volume 87 fL (79-100) Mean Corpuscular Hemoglobin 28 pg (25-35) Mean Corpuscular Hemoglobin Concent 32 g/dL (31-37) Red Cell Distribution Width 19.0 % (11.5-14.5) Platelet Count 475 x10^3/uL (140-400) Neutrophils (%) (Auto) 79 % (31-73) Lymphocytes (%) (Auto) 10 % (24-48) Monocytes (%) (Auto) 10 % (0-9) Eosinophils (%) (Auto) 1 % (0-3) Basophils (%) (Auto) 0 % (0-3) Neutrophils # (Auto) 11.9 x10^3uL (1.8-7.7) Lymphocytes # (Auto) 1.5 x10^3/uL (1.0-4.8) Monocytes # (Auto) 1.5 x10^3/uL (0.0-1.1) Eosinophils # (Auto) 0.1 x10^3/uL (0.0-0.7) Basophils # (Auto) 0.0 x10^3/uL (0.0-0.2) Sodium Level 138 mmol/L (136-145) Potassium Level 5.1 mmol/L (3.5-5.1) Chloride Level 101 mmol/L (98-107) Carbon Dioxide Level 23 mmol/L (21-32) Anion Gap 14 (6-14) Blood Urea Nitrogen 70 mg/dL (8-26) Creatinine 5.7 mg/dL (0.7-1.3) Estimated GFR (Cockcroft-Gault) 10.1 Glucose Level 93 mg/dL (70-99) Calcium Level 9.4 mg/dL (8.5-10.1) Phosphorus Level 5.1 mg/dL (2.6-4.7) Magnesium Level 1.8 mg/dL (1.8-2.4) Albumin 2.5 g/dL (3.4-5.0) Glucose (Fingerstick) 96 mg/dL (70-99) 85 mg/dL (70-99) 179 mg/dL (70-99) Test 11/18/18 20:24 11/19/18 06:59 11/19/18 08:40 11/19/18 16:47 Glucose (Fingerstick) 156 mg/dL (70-99) 122 mg/dL (70-99) 131 mg/dL (70-99) Sodium Level 138 mmol/L (136-145) Potassium Level 5.1 mmol/L (3.5-5.1) Chloride Level 103 mmol/L (98-107) Carbon Dioxide Level 23 mmol/L (21-32) Anion Gap 12 (6-14) Blood Urea Nitrogen 76 mg/dL (8-26) Creatinine 6.0 mg/dL (0.7-1.3) Estimated GFR (Cockcroft-Gault) 9.5 Glucose Level 121 mg/dL (70-99) Calcium Level 9.4 mg/dL (8.5-10.1) Phosphorus Level 5.4 mg/dL (2.6-4.7) Magnesium Level 2.0 mg/dL (1.8-2.4) Albumin 2.3 g/dL (3.4-5.0) Laboratory Tests Test 11/19/18 06:59 11/19/18 08:40 11/19/18 16:47 Glucose (Fingerstick) 122 mg/dL (70-99) 131 mg/dL (70-99) Sodium Level 138 mmol/L (136-145) Potassium Level 5.1 mmol/L (3.5-5.1) Chloride Level 103 mmol/L (98-107) Carbon Dioxide Level 23 mmol/L (21-32) Anion Gap 12 (6-14) Blood Urea Nitrogen 76 mg/dL (8-26) Creatinine 6.0 mg/dL (0.7-1.3) Estimated GFR (Cockcroft-Gault) 9.5 Glucose Level 121 mg/dL (70-99) Calcium Level 9.4 mg/dL (8.5-10.1) Phosphorus Level 5.4 mg/dL (2.6-4.7) Magnesium Level 2.0 mg/dL (1.8-2.4) Albumin 2.3 g/dL (3.4-5.0) Microbiology 11/16/18 Blood Culture - Preliminary, Resulted NO GROWTH AFTER 3 DAYS Medications Current Medications Ondansetron HCl (Zofran) 4 mg PRN Q8HRS PRN IV NAUSEA/VOMITING Last administered on 11/15/18 12:26; Start 11/15/18 at 12:15; Stop 11/16/18 at 12:14; Status DC Morphine Sulfate (Morphine Sulfate) 2 mg PRN Q2HR PRN IV PAIN Last administered on 11/15/18at 12:26; Start 11/15/18 at 12:15; Stop 11/16/18 at 12:14; Status DC Sodium Chloride 1,000 ml @ 100 mls/hr Q10H IV Last administered on 11/15/18 12:25; Start 11/15/18 at 12:05; Stop 11/15/18 at 22:04; Status DC Heparin Sodium (Porcine) (Heparin Sodium) 5,000 unit Q12HR SQ Last administered on 11/19/18at 21:04; Start 11/15/18 at 15:00 Amlodipine Besylate (Norvasc) 5 mg DAILY PO Last administered on 4/30/19at 08:49; Start 11/16/18 at 09:00 Atenolol (Tenormin) 50 mg DAILY PO Last administered on 11/19/18 08:50; Start 11/16/18 at 09:00 Atorvastatin Calcium (Lipitor) 10 mg QHS PO Last administered on 11/19/18 20:57; Start 11/15/18 at 21:00 Ergocalciferol (Vitamin D2) 50,000 unit WEEKLY PO Last administered on 11/16/18 08:15; Start 11/16/18 at 09:00 Folic Acid (Folic Acid) 1 mg DAILY PO Last administered on 11/19/18 08:49; Start 11/16/18 at 09:00 Albuterol/ Ipratropium (Duoneb) 3 ml RTQID NEB Last administered on 11/16/18 07:47; Start 11/15/18 at 16:00; Stop 11/16/18 at 11:33; Status DC Oxycodone/ Acetaminophen (Percocet 10/325) 1 tab PRN Q6HRS PRN PO PAIN Last administered on 11/19/18 16:55; Start 11/15/18 at 15:00 Pantoprazole Sodium (Protonix) 40 mg DAILYAC PO Last administered on 11/19/18 08:50; Start 11/16/18 at 07:30 Sodium Chloride 1,000 ml @ 100 mls/hr Q10H IV Last administered on 11/17/18 08:51; Start 11/16/18 at 11:15; Stop 11/17/18 at 16:17; Status DC Docusate Sodium (Colace) 100 mg BID PO Last administered on 11/19/18 20:57; Start 11/16/18 at 11:15 Insulin Human Lispro (HumaLOG) 0-5 UNITS TIDWMEALS SQ Last administered on 11/18/18 17:30; Start 11/16/18 at 12:00 Dextrose (Dextrose 50%-Water Syringe) 12.5 gm PRN Q15MIN PRN IV SEE COMMENTS; Start 11/16/18 at 11:30 Albuterol Sulfate (Ventolin Neb Soln) 2.5 mg PRN Q6HRS PRN NEB SHORTNESS OF BREATH Last administered on 4/28/19at 07:10; Start 11/16/18 at 11:45 Magnesium Sulfate 50 ml @ 25 mls/hr PRN DAILY PRN IV for Mag < 1.7 on am labs; Start 11/16/18 at 12:00 Albumin Human 100 ml @ 100 mls/hr TID IV Last administered on 11/18/18at 09:25; Start 11/16/18 at 14:00; Stop 11/18/18 at 09:59; Status DC Haloperidol (Haldol) 5 mg PRN Q12HR PRN PO AGITATION Last administered on 11/17/18at 03:51; Start 11/16/18 at 20:30 Hydroxyzine HCl (Atarax) 10 mg PRN Q6HRS PRN PO ANXIETY/AGITATION Last administered on 11/17/18at 20:15; Start 11/16/18 at 20:30 Furosemide (Lasix) 40 mg BID92 IVP Last administered on 11/19/18at 14:32; Start 11/17/18 at 09:00 Morphine Sulfate (Morphine Sulfate) 2 mg PRN Q2HR PRN IV PAIN Last administered on 11/19/18at 12:59; Start 11/18/18 at 13:30 Morphine Sulfate (Morphine Sulfate) 4 mg PRN Q2HR PRN IV PAIN; Start 11/18/18 at 13:30 Active Scripts Active Duoneb 0.5-3(2.5) Mg/3 Ml (Albuterol/Ipratropium) 3 Ml Ampul.neb 3 Ml NEB RTQID 30 Days Reported Flonase Allergy Relief (Fluticasone Propionate) 9.9 Ml Veteran.susp 2 Sprays NS DAILY Percocet 10-325 Mg Tablet (Oxycodone/Acetaminophen) 1 Each Tablet 1 Tab PO PRN Q6HRS PRN Atenolol 50 Mg Tablet 1 Tab PO DAILY Omeprazole 20 Mg Tablet. 1 Tab PO DAILY Vitals/I & O Vital Sign - Last 24 Hours 11/18/18 11/18/18 11/18/18 11/19/18 21:27 22:27 23:07 03:08 Temp 99.1 98.1 99.1 98.1 Pulse 80 80 Resp 20 20 20 B/P (MAP) 95/55 (68) 122/70 (87) Pulse Ox 97 97 97 100 O2 Delivery Room Air Room Air Nasal Cannula O2 Flow Rate 3.0 1.5 11/19/18 11/19/18 11/19/18 11/19/18 07:00 08:00 08:49 08:50 Temp 98.3 98.3 Pulse 78 78 78 Resp 20 B/P (MAP) 112/63 (79) 112/63 112/63 Pulse Ox 100 O2 Delivery Nasal Cannula Nasal Cannula O2 Flow Rate 1.5 2.0 11/19/18 11/19/18 11/19/18 11/19/18 09:01 11:00 12:59 13:29 Resp 16 17 17 Pulse Ox 99 O2 Delivery Room Air Room Air Nasal Cannula Nasal Cannula O2 Flow Rate 2.0 2.0 11/19/18 11/19/18 11/19/18 11/19/18 15:00 16:55 17:55 19:00 Temp 99.1 99.6 99.1 99.6 Pulse 78 68 Resp 20 17 17 17 B/P (MAP) 112/51 (71) 95/47 (63) Pulse Ox 97 96 O2 Delivery Nasal Cannula Room Air Room Air Nasal Cannula O2 Flow Rate 1.5 1.5 Intake and Output 11/18/18 11/18/18 11/19/18 15:00 23:00 07:00 Intake Total 120 ml 300 ml 370 ml Output Total 400 ml Balance 120 ml -100 ml 370 ml ANDERSON MANCILLA MD Nov 19, 2018 21:19
[2018-11-19 22:42] VITALS: BP 137/68
[2018-11-20 03:00] VITALS: BP 96/47
[2018-11-20] MEDS: oxyCODONE/APAP 10/325 1 TAB TABLET PO PRN (06:20)
[2018-11-20 07:00] VITALS: BP 96/56
[2018-11-20] MEDS: INSULIN LISPRO 300 UNITS/3 ML INSULN.PEN. SQ SCH ×2 (08:00→12:00)
[2018-11-20] MEDS: amLODIPine BESYLATE 5 MG TABLET PO SCH (09:00)
[2018-11-20] MEDS: ATENOLOL 50 MG TABLET. PO SCH (09:00)
[2018-11-20] MEDS: FUROSEMIDE 40 MG/4 ML VIAL. IVP SCH (09:08)
[2018-11-20] MEDS: PANTOPRAZOLE 40 MG TABLET.DR. PO SCH (09:08)
[2018-11-20] MEDS: FOLIC ACID 1 MG TABLET. PO SCH (09:17)
[2018-11-20] MEDS: DOCUSATE SODIUM 100 MG CAPSULE. PO SCH (09:17)
[2018-11-20] MEDS: HEPARIN for SUB-Q USE 5,000 UNIT/ML VIAL. SQ SCH (09:19)
[2018-11-20 09:22] LABS: GLOMERULAR BASEMENT ABDY 6 units (0-20)
--- NOTE | 2018-11-20 10:43 | NUR ---
[facility] Beto reported she is sending a nurse to meet with pt's family to coordinate dc. Will continue to follow.
[2018-11-20 11:00] VITALS: BP 108/66
[2018-11-20 11:34] LABS: ALBUMIN 2.1 g/dL (3.4-5.0); CALCIUM 9.1 mg/dL (8.5-10.1); CREATININE 6.4 mg/dL (0.7-1.3); GFR 8.9; MAGNESIUM 1.9 mg/dL (1.8-2.4); PHOSPHORUS 5.4 mg/dL (2.6-4.7); POTASSIUM 4.7 mmol/L (3.5-5.1)
[2018-11-20 13:18] LABS: ANTI-DS DNA <1 IU/mL (0-9)
--- NOTE | 2018-11-20 13:26 | NUR ---
Discharged to home with hospice, transported via wheelchair by hospital transfer pt. [facility] nurse was here talking with pt and spouse. IV discontinued.
--- NOTE | 2018-11-20 14:08 | NUR ---
SYDNEE following pt. Pt has been accepted by [facility]. SYDNEE notified Beto at [facility], pt is discharging today. RN reported had stated Hospice agency is delivering equipment today. JOCELYN TORRES.
[2018-11-20 14:15] LABS: PROTEINASE 3 ANTIBODY <3.5 U/mL (0.0-3.5)
[2018-11-20 16:11] LABS: ANA INTERP Negative (.)
[2018-11-21 13:15] LABS: C ANCA <1:20 titer (Neg:<1:20); P ANCA <1:20 titer (Neg:<1:20)
--- NOTE | 2018-12-11 19:53 | DS ---
DATE OF DISCHARGE: 11/20/2018 ADMITTING DIAGNOSIS: Acute renal failure. DISMISSAL DIAGNOSIS: Acute renal failure. SECONDARY DIAGNOSES: 1. Metastatic lung cancer. 2. Hypertension. 3. Type 2 diabetes. 4. Chronic obstructive pulmonary disease. 5. Osteoarthritis of the knee. 6. Anemia. 7. Metabolic encephalopathy. HISTORY OF PRESENT ILLNESS AND HOSPITAL COURSE: This patient was admitted with progressive renal failure likely due to chemotherapy. The patient also had progressive lung cancer by x-ray. The patient's prognosis was poor and he was not a dialysis candidate. Therefore, he proceeded to request hospice services and was discharged to home with hospice. DISCHARGE MEDICATIONS: He was discharged to home on atenolol 50 mg daily, Flonase two sprays each nostril daily, ipratropium bromide, albuterol nebulizer treatments q.6h., omeprazole 20 mg daily and Percocet 10 q.6h. p.r.n. Multiple medications were discontinued as listed in chart and the patient will be followed by hospice services. ANDERSON MANCILLA MD DR: LIDIA/[place] JOB#: [id number] / [id number]
== END 2018-11-20 13:26 | disposition hospice, home (50) | DRG 682 ==
LOC: ER 09:37 → 6 SOUTH 12:14
PROVIDERS: ADMIT Family Medicine; ATTEND Family Medicine
PROC: 30233N1 Transfusion of Nonautologous Red Blood Cells into Peripheral Vein, Percutaneous Approach (ICD-10-PCS; principal; 2018-11-17)
DX: N17.9 Acute kidney failure, unspecified (principal); G93.41 Metabolic encephalopathy; C34.92 Malignant neoplasm of unspecified part of left bronchus or lung; J90 Pleural effusion, not elsewhere classified; N18.3 Chronic kidney disease, stage 3 (moderate); I12.9 Hypertensive chronic kidney disease with stage 1 through stage 4 chronic kidney disease, or unspecified chronic kidney disease; E87.5 Hyperkalemia; E11.22 Type 2 diabetes mellitus with diabetic chronic kidney disease; G40.909 Epilepsy, unspecified, not intractable, without status epilepticus; J44.9 Chronic obstructive pulmonary disease, unspecified; G89.29 Other chronic pain; M19.90 Unspecified osteoarthritis, unspecified site; E78.5 Hyperlipidemia, unspecified; F41.1 Generalized anxiety disorder; E11.42 Type 2 diabetes mellitus with diabetic polyneuropathy; Z51.5 Encounter for palliative care; D63.0 Anemia in neoplastic disease; D47.3 Essential (hemorrhagic) thrombocythemia; Z88.5 Allergy status to narcotic agent; Z79.899 Other long term (current) drug therapy; Z87.891 Personal history of nicotine dependence; Z92.21 Personal history of antineoplastic chemotherapy; Z83.3 Family history of diabetes mellitus; Z82.49 Family history of ischemic heart disease and other diseases of the circulatory system
CPT/HCPCS: 36415; 76770; 80048; 80069; 80076; 81001; 82306; 82550; 82570; 82962; 83520; 83615; 83690; 83735; 84156; 84300; 84484; 84550; 85025; 85027; 85610; 85730; 86021; 86038; 86160; 86850; 86900; 86901; 86920; 87040; 87801; 93005; 94640; 96361; 96374; J1644; J1815; J1940; J2270; J2405; J7030; J7613; J7620; P9016; P9046; 83516; 83876; 97535; 99285-25